=== PATIENT | female | born 1995 | race Caucasian/White ===

== ENCOUNTER → 2021-05-17 10:26 | Outpatient (CLI) | payer OTHER, MEDICAID, SELFPAY ==
[2021-05-17 10:50] LABS: COVID19 -Nasal RAPID Negative (Negative)
== END ==
PROVIDERS: Family Provider Physician Assistant; PCP Registered Nurse Diabetes Educator; Visit Provider Physician Assistant
DX: Z20.822 Contact with and (suspected) exposure to COVID-19 (principal); R05 Cough; R09.89 Other specified symptoms and signs involving the circulatory and respiratory systems
CPT/HCPCS: 87635

== ENCOUNTER 2021-10-28 15:02 | Emergency (ER) | payer OTHER, MEDICAID, SELFPAY ==
[2021-10-28 15:23] VITALS: BP 128/82; PULSE 61; RESP 24; TEMP 36.7; O2SAT 96; BMI 21.9
[2021-10-28 16:17] LABS: INR 1.1 (0.9-1.3); Prothrombin Time 11.7 SECONDS (10.1-12.7)
[2021-10-28 16:19] LABS: PTT Partial Thromboplastin Tim 25 SECONDS (26.4-36.2)
[2021-10-28 16:22] LABS: Alanine Aminotransferase 14 IU/L (<35); Albumin 4.5 g/dL (3.5-5.0); Albumin Globulin Ratio 1.6 (1.0-2.8); Alkaline Phosphatase 44 U/L (38-126); Aspartate Aminotransferase 23 IU/L (14-36); BUN Creatinine Ratio 13.3 (6-22); Bilirubin Total 0.6 mg/dL (0.2-1.3); Blood Urea Nitrogen 8 mg/dL (7-17); Calcium 9.4 mg/dL (8.4-10.2); Carbon Dioxide 24 mmol/L (22-32); Chloride 106 mmol/L (98-107); Estimated Glomerular Filt Rate > 60.0 mL/min (>60); Globulin 2.8 g/dL (1.7-4.1); Glucose 86 mg/dL (70-100); HEMOLYSIS < 15 (0-50); Potassium 3.3 mmol/L (3.4-5.1); Sodium 137 mmol/L (137-145); Total Protein 7.3 g/dL (6.3-8.2)
[2021-10-28 16:23] LABS: Add Manual Diff / Slide Review NO; Basophils Absolute Auto 0 /uL (0-100); Basophils Percent Auto 0.6 % (0-2); Eosinophils Absolute Auto 0 /uL (0-450); Eosinophils Percent Auto 0.4 % (2-4); Hematocrit 39.3 % (36-46); Hemoglobin 13.8 g/dL (12.0-16.0); Lymphocytes Absolute Auto 1600 /uL (1100-4500); Lymphocytes Percent Auto 24.8 % (25-40); Mean Corpuscular HGB Conc 35.2 % (30-36); Mean Corpuscular Volume 93.7 fL (80-100); Monocytes Absolute Auto 300 /uL (0-900); Monocytes Percent Auto 4.8 % (3-14); Neutrophils Absolute Auto 4400 /uL (1500-7000); Neutrophils Percent Auto 69.4 % (50-75); Platelet Count 201 X10^3/uL (150-400); Red Blood Cell Count 4.19 X10^6/uL (4.0-5.2); Red Cell Distribution Width 12.9 % (11.6-14.8); White Blood Cell Count 6.3 X10^3/uL (4.5-11.0)
--- NOTE | 2021-10-28 18:30 | ED.GIBLEED ---
HPI - GI Bleed General Chief complaint: GI Bleed Stated complaint: rectal bleeding Time Seen by Provider: 10/28/21 18:04 Source: patient Mode of arrival: Ambulatory History of Present Illness HPI Narrative: 26-year-old female smoker with history of PTSD, anxiety, depression presents with her significant other and a chief complaint of painless bright red blood per rectum with bowel movements only for the past day or 2. She denies any fever chills. She has no nausea, vomiting or. She denies recent travel, bad food or recent antibiotics. She states that she had recently started Wellbutrin last week but took her last dose on Wednesday. She denies dizziness, weakness or lightheadedness. She has no headache, runny nose or sore throat. She denies any chest pain or shortness of breath. She otherwise feels well. She states that she has loose stool with blood mixed in. She denies any trauma. Related Data Previous Rx's Medication Instructions Recorded drospirenone 3 mg-ethinyl 1 tab PO DAILY #84 tab 05/07/21 estradiol 0.02 mg tablet bupropion HCl 150 mg 24 hr tablet, 150 mg PO QAM #30 tab 10/22/21 extended release (Wellbutrin XL) escitalopram oxalate 20 mg tablet 20 mg PO DAILY #90 tab 10/22/21 (Lexapro) zolpidem 5 mg tablet (Ambien) 5 mg PO BEDTIME PRN #30 tab 10/22/21 pantoprazole 40 mg tablet,delayed 40 mg PO DAILY #30 tab 10/28/21 release (Protonix) Allergies Allergy/AdvReac Type Severity Reaction Status Date / Time Sulfa (Sulfonamide Allergy Intermediate hives Verified 05/17/21 10:28 Antibiotics) Penicillins [PENICILLINS] Allergy Mild RASH, Verified 05/17/21 10:28 DYSPNEA amoxicillin [AMOXICILLIN] Allergy Unknown Verified 05/17/21 10:28 Review of Systems Review of Systems Narrative: GENERAL: Denies chills, fatigue, malaise, fever, sweats. HEENT: Denies sinus pain, ear pain, sore throat, difficulty swallowing, dizziness. RESPIRATORY: Denies dyspnea, cough, wheezing, hemoptysis, sputum. CARDIOVASCULAR: Denies chest pain, palpitations, orthopnea, edema, GASTROINTESTINAL: See HPI : Denies dysuria, frequency, incontinence, hematuria, urinary retention. MUSCULOSKELETAL: denies weakness, joint pain, or bony pain SKIN: Denies rash, skin lesions, or other NEUROLOGIC: Denies weakness, headache, numbness, change in speech, confusion, seizures, incoordination. PSYCHIATRIC: No concerning psychosocial issues. 12 point review of systems is negative except for those stated above Patient History Medical History Anxiety Depression Insect bite of right toe Insomnia Open wound of toe of right foot due to animal bite PTSD (post-traumatic stress disorder) Surgical History Status post delivery Social History Smoking Status: Current every day smoker Smoking Status: Current every day smoker tobacco type: vaping alcohol intake frequency: a few times a week Alcohol type: hard liquor and other Substance Use Type: marijuana Exam Narrative Exam Narrative: GENERAL: [26] year old patient appears stated age. Well-developed patient, in mild distress. HEAD: Atraumatic. Normocephalic. EYES: Pupils equal round and reactive. Extraocular motions intact. No scleral icterus. No injection or drainage. ENT: Nose without bleeding, purulent drainage. Throat without erythema, tonsillar hypertrophy or exudate. Airway patent. NECK: Trachea midline. Non tender CARDIOVASCULAR: Regular rate and rhythm without murmurs, gallops, or rubs. RESPIRATORY: Clear to auscultation. Breath sounds equal bilaterally. No wheezes, rales, or rhonchi. GASTROINTESTINAL: Abdomen soft, non-tender, nondistended. RECTAL: Weakly heme-positive. No hemorrhoid, fissure or pain. Performed with patient permission and female nursing utility tender carding at the bedside. EXTREMITIES: No edema or joint tenderness. BACK: Nontender without deformity or crepitance. No flank tenderness. NEURO: AOx3. SKIN: No rash or erythema of visible areas Initial Vital Signs Initial Vital Signs: Vital Signs Temperature 98.1 F 10/28/21 15:23 Pulse Rate 61 10/28/21 15:23 Respiratory Rate 24 10/28/21 15:23 Blood Pressure 128/82 10/28/21 15:23 Pulse Oximetry 96 10/28/21 15:23 Course Orders Ordered: ED Orders 10/28/21 15:40 Complete Blood Count AUTO DIFF Stat Comprehensive Metabolic Panel Stat Partial Thromboplastin Time Stat Prothrombin Time INR Stat Type and Screen Stat 10/28/21 16:05 EKG-12 Lead Stat Vital Signs Vital signs: Vital Signs - 8 hr 10/28/21 15:23 Temperature 98.1 F Pulse Rate 61 Respiratory Rate 24 Blood Pressure 128/82 Pulse Oximetry 96 MDM - GI Bleed Lab Data Result diagrams: 10/28/21 15:40 10/28/21 15:40 Labs: Lab Results 10/28/21 10/28/21 10/28/21 Range/Units 15:40 15:40 15:40 WBC 6.3 (4.5-11.0) X10^3/uL RBC 4.19 (4.0-5.2) X10^6/uL Hgb 13.8 (12.0-16.0) g/dL Hct 39.3 (36-46) % MCV 93.7 (80-100) fL MCH 33.0 (26-34) PG MCHC 35.2 (30-36) % RDW 12.9 (11.6-14.8) % Plt Count 201 (150-400) X10^3/uL Neut % (Auto) 69.4 (50-75) % Lymph % (Auto) 24.8 L (25-40) % [place] % (Auto) 4.8 (3-14) % Eos % (Auto) 0.4 L (2-4) % Baso % (Auto) 0.6 (0-2) % Neut # (Auto) 4400 (0998-8156) /uL Lymph # (Auto) 1600 (6412-4397) /uL [place] # (Auto) 300 (0-900) /uL Eos # (Auto) 0 (0-450) /uL Baso # (Auto) 0 (0-100) /uL PT 11.7 (10.1-12.7) SECONDS INR 1.1 (0.9-1.3) APTT 25 L (26.4-36.2) SECONDS Sodium 137 (137-145) mmol/L Potassium 3.3 L (3.4-5.1) mmol/L Chloride 106 (98-107) mmol/L Carbon Dioxide 24 (22-32) mmol/L BUN 8 (7-17) mg/dL Creatinine 0.60 (0.52-1.04) mg/dL Estimated GFR > 60.0 (>60) mL/min BUN/Creatinine Ratio 13.3 (6-22) Glucose 86 (70-100) mg/dL Calcium 9.4 (8.4-10.2) mg/dL Total Bilirubin 0.6 (0.2-1.3) mg/dL AST 23 (14-36) IU/L ALT 14 (<35) IU/L Alkaline Phosphatase 44 (38-126) U/L Total Protein 7.3 (6.3-8.2) g/dL Albumin 4.5 (3.5-5.0) g/dL Globulin 2.8 (1.7-4.1) g/dL Albumin/Globulin Ratio 1.6 (1.0-2.8) Blood Type Antibody Screen 10/28/21 Range/Units 15:40 WBC (4.5-11.0) X10^3/uL RBC (4.0-5.2) X10^6/uL Hgb (12.0-16.0) g/dL Hct (36-46) % MCV (80-100) fL MCH (26-34) PG MCHC (30-36) % RDW (11.6-14.8) % Plt Count (150-400) X10^3/uL Neut % (Auto) (50-75) % Lymph % (Auto) (25-40) % [place] % (Auto) (3-14) % Eos % (Auto) (2-4) % Baso % (Auto) (0-2) % Neut # (Auto) (7452-0887) /uL Lymph # (Auto) (2531-3643) /uL [place] # (Auto) (0-900) /uL Eos # (Auto) (0-450) /uL Baso # (Auto) (0-100) /uL PT (10.1-12.7) SECONDS INR (0.9-1.3) APTT (26.4-36.2) SECONDS Sodium (137-145) mmol/L Potassium (3.4-5.1) mmol/L Chloride (98-107) mmol/L Carbon Dioxide (22-32) mmol/L BUN (7-17) mg/dL Creatinine (0.52-1.04) mg/dL Estimated GFR (>60) mL/min BUN/Creatinine Ratio (6-22) Glucose (70-100) mg/dL Calcium (8.4-10.2) mg/dL Total Bilirubin (0.2-1.3) mg/dL AST (14-36) IU/L ALT (<35) IU/L Alkaline Phosphatase (38-126) U/L Total Protein (6.3-8.2) g/dL Albumin (3.5-5.0) g/dL Globulin (1.7-4.1) g/dL Albumin/Globulin Ratio (1.0-2.8) Blood Type B Positive Antibody Screen Negative MDM Narrative Medical decision making narrative: 26-year-old female largely at her normal baseline with 2 days or so of painless BRBPR. Low risk with reassuring exam and vitals. Labs unremarkable. She has had no fever, recent antibiotics, bad food or travel. She takes no blood thinners. She has very minimal bleeding on exam. Perhaps the sources an internal hemorrhoid or diverticular bleed. Extensive discussion about the importance of close follow-up, clear liquid diet, return precautions. Questions answered to her apparent satisfaction Discharge Plan Departure Patient Disposition: Home Clinical Impression: Bright red rectal bleeding Instructions: Gastrointestinal Bleeding Activity Restrictions/Additional Instructions: *You have been diagnosed with [rectal bleeding. As we discussed your history and physical exam are very reassuring as are your vital signs and lab work. *What to do: *Please continue to take your regular medications as directed. [x ] New medication prescriptions sent to your pharmacy: [[facility] ] [ ] New medication written as a paper prescription [ ] No new medications given *Please follow up with your primary care provider in 2-3 days, call for an appointment. Let them know you were seen in the Emergency Department and that we ask that you be seen in follow up. We will electronically transmit a record of today's note if your PCP is in our system *Please consider a clear liquid diet for the next 24-48 hours *If you do not have a primary care provider please contact the [facility] Resource line at [phone]. They will ask some questions about your medical history and help get you set up with a doctor in the community. *Return to Emergency Department if you should have any new, worsening or concerning symptoms, such as [fever greater than 101 F, shaking chills, worsening pain, persistent vomiting or other bothersome symptoms] Prescriptions: New pantoprazole [Protonix] 40 mg tablet,delayed release (DR/EC) 40 mg PO DAILY Qty: 30 0RF No Action drospirenone-ethinyl estradiol 3-0.02 mg tablet 1 tab PO DAILY Qty: 84 3RF escitalopram oxalate [Lexapro] 20 mg tablet 20 mg PO DAILY Qty: 90 1RF bupropion HCl [Wellbutrin XL] 150 mg tablet extended release 24 hr 150 mg PO QAM Qty: 30 1RF zolpidem [Ambien] 5 mg tablet 5 mg PO BEDTIME PRN (Reason: insomnia) Qty: 30 2RF Referrals: Rufus Romero ARNP [Primary Care Provider] - Mohinder Amos MD [Physician] -
--- NOTE | 2021-10-28 18:47 | PC.NURSE ---
claudia done by dr davey. pt verbalized understanding and consent.
== END 2021-10-28 19:19 | disposition home or self-care (01) ==
PROVIDERS: Emergency Medicine; Emergency Provider Emergency Medicine; Family Provider Physician Assistant; PCP Registered Nurse Diabetes Educator
DX: K62.5 Hemorrhage of anus and rectum (principal)
CPT/HCPCS: 36415; 80053; 82272; 85025; 85610; 85730; 86850; 86900; 86901; 93005; 99283

== ENCOUNTER → 2022-11-18 10:31 | Outpatient (CLI) | payer OTHER, MEDICAID, SELFPAY ==
[2022-11-18 10:59] LABS: Pregnancy Test Urine Negative (Negative)
[2022-11-18 11:27] LABS: Add Manual Diff / Slide Review NO; Basophils Absolute Auto 0 /uL (0-100); Basophils Percent Auto 0.6 % (0-2); Eosinophils Absolute Auto 100 /uL (0-450); Eosinophils Percent Auto 0.9 % (2-4); Hematocrit 39.9 % (36-46); Hemoglobin 14.4 g/dL (12.0-16.0); Lymphocytes Absolute Auto 1300 /uL (1100-4500); Lymphocytes Percent Auto 20.8 % (25-40); Mean Corpuscular HGB Conc 36.1 % (30-36); Mean Corpuscular Hemoglobin 33.8 PG (26-34); Mean Corpuscular Volume 93.7 fL (80-100); Monocytes Absolute Auto 300 /uL (0-900); Monocytes Percent Auto 5.1 % (3-14); Neutrophils Absolute Auto 4600 /uL (1500-7000); Neutrophils Percent Auto 72.6 % (50-75); Platelet Count 204 X10^3/uL (150-400); Red Blood Cell Count 4.25 X10^6/uL (4.0-5.2); Red Cell Distribution Width 13.3 % (11.6-14.8); White Blood Cell Count 6.4 X10^3/uL (4.5-11.0)
[2022-11-18 12:19] LABS: Alanine Aminotransferase 17 IU/L (<35); Albumin 4.1 g/dL (3.5-5.0); Albumin Globulin Ratio 1.5 (1.0-2.8); Alkaline Phosphatase 59 U/L (38-126); Aspartate Aminotransferase 21 IU/L (14-36); BUN Creatinine Ratio 10.3 (6-22); Bilirubin Total 0.7 mg/dL (0.2-1.3); Blood Urea Nitrogen 6 mg/dL (7-17); Calcium 8.7 mg/dL (8.4-10.2); Carbon Dioxide 29 mmol/L (22-32); Chloride 103 mmol/L (98-107); Estimated Glomerular Filt Rate > 60 mL/min (>60); Globulin 2.7 g/dL (1.7-4.1); Glucose 92 mg/dL (70-100); HEMOLYSIS < 15 (0-50); Potassium 3.7 mmol/L (3.4-5.1); Sodium 138 mmol/L (137-145); Total Protein 6.8 g/dL (6.3-8.2)
[2022-11-18 12:47] LABS: Lithium < 0.2 mmol/L (0.6-1.2)
[2022-11-18 12:51] LABS: Free T4, Direct Thyroxine 0.89 ng/dL (0.78-2.19)
[2022-11-18 13:05] LABS: Thyroid Stimulating Hormone 1.15 uIU/mL (0.47-4.68)
== END ==
PROVIDERS: Family Provider Physician Assistant; PCP Registered Nurse Diabetes Educator; Referring Provider Psychiatry & Neurology Psychiatry; Visit Provider Psychiatry & Neurology Psychiatry
DX: F31.9 Bipolar disorder, unspecified (principal); Z79.899 Other long term (current) drug therapy
CPT/HCPCS: 36415; 80053; 80178; 81025; 84439; 84443; 85025; 90792

== ENCOUNTER → 2022-11-24 10:54 | Outpatient (CLI) | payer OTHER, MEDICAID, SELFPAY ==
[2022-11-24 12:40] LABS: Lithium 0.2 mmol/L (0.6-1.2)
== END ==
PROVIDERS: Family Provider Physician Assistant; PCP Registered Nurse Diabetes Educator; Referring Provider Psychiatry & Neurology Psychiatry; Visit Provider Psychiatry & Neurology Psychiatry
DX: F31.9 Bipolar disorder, unspecified (principal); Z51.81 Encounter for therapeutic drug level monitoring
CPT/HCPCS: 36415; 80178

== ENCOUNTER 2024-02-26 10:10 | Emergency (ER) | payer OTHER, MEDICAID, SELFPAY ==
[2024-02-26 10:15] VITALS: BP 110/69; PULSE 87; RESP 14; TEMP 36.6; O2SAT 97; BMI 21.1
--- NOTE | 2024-02-26 10:18 | DI.RAD.S_ITS ---
PROCEDURE: XR ANKLE LT MIN 3V INDICATIONS: foot/ankle pain TECHNIQUE: 3 views of the ankle were acquired. COMPARISON: [facility], CR, XR FOOT LT MIN 3V, 02/26/2024, 10:16. [facility], CR, ANKLE 3 VIEWS LEFT, 03/13/2013, 20:12. FINDINGS: Bones: No fractures or dislocations. Ankle mortise is normally aligned. No suspicious bony lesions. Soft tissues: No tibiotalar joint effusion. Achilles tendon appears normal. IMPRESSION: No visualized acute fracture or dislocation. However, if clinical concern and/or pain persist, short interval imaging followup in 7-10 days is recommended, as occult injury cannot be definitively excluded. Dictated by: La Aguilar M.D. on 02/26/2024 at 10:55 Approved by: La Aguilar M.D. on 02/26/2024 at 10:56
--- NOTE | 2024-02-26 10:18 | DI.RAD.S_ITS ---
PROCEDURE: XR FOOT LT MIN 3V INDICATIONS: foot/ankle pain TECHNIQUE: 3 views of the foot were acquired. COMPARISON: [facility], , XR ANKLE LT MIN 3V, 02/26/2024, 10:16. FINDINGS: Bones: No fractures or dislocations. No suspicious bony lesions. Soft tissues: No tibiotalar joint effusion. Achilles tendon appears normal. IMPRESSION: No visualized acute fracture or dislocation. However, if clinical concern and/or pain persist, short interval imaging followup in 7-10 days is recommended, as occult injury cannot be definitively excluded. Dictated by: La Aguilar M.D. on 02/26/2024 at 11:13 Approved by: La Aguilar M.D. on 02/26/2024 at 11:13
--- NOTE | 2024-02-26 11:45 | ED_ITS ---
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 She reports a throbbing sensation to her left ankle. Denies any acute trauma to the left ankle. Denies any swelling, numbness, or any other concerning signs or symp toms. Related Data Allergies Allergy/AdvReac Type Severity Reaction Status Date / Time Sulfa (Sulfonamide Allergy Intermediate hives Verified 02/26/24 10:16 Antibiotics) Penicillins [PENICILLINS] Allergy Mild RASH, Verified 02/26/24 10:16 DYSPNEA amoxicillin [AMOXICILLIN] Allergy Unknown Verified 02/26/24 10:16 Review of Systems <Noel Barajas PA-C - Last Filed: 02/26/24 12:23> Review of Systems Narrative: GENERAL: Denies chills, fatigue, malaise, fever, sweats. HEENT: Denies sinus pain, ear pain, sore throat, difficulty swallowing, dizziness. RESPIRATORY: Denies dyspnea, cough, wheezing, hemoptysis, sputum. CARDIOVASCULAR: Denies chest pain, palpitations, orthopnea, edema, GASTROINTESTINAL: Denies nausea, vomiting, abdominal pain, diarrhea, constipation, melena. : Denies dysuria, frequency, incontinence, hematuria, urinary retention. MUSCULOSKELETAL: Reports left ankle pain, otherwise denies weakness, joint pain, or bony pain SKIN: Denies rash, skin lesions, or other NEUROLOGIC: Denies weakness, headache, numbness, change in speech, confusion, seizures, incoordination. PSYCHIATRIC: No concerning psychosocial issues. 12 point review of systems is negative except for those stated above Patient History <Noel Barajas PA-C - Last Filed: 02/26/24 12:23> Medical History Anxiety Depression Insect bite of right toe Insomnia Open wound of toe of right foot due to animal bite PTSD (post-traumatic stress disorder) Surgical History Status post delivery Social History Smoking Status: Current every day smoker Smoking Status: Current every day smoker tobacco type: vaping alcohol intake frequency: 0-2 drinks per day Alcohol type: hard liquor and other Substance Use Type: marijuana Exam <Noel Barajas PA-C - Last Filed: 02/26/24 12:23> Narrative Exam Narrative: GENERAL: Well-developed patient, in mild distress. HEAD: Atraumatic. Normocephalic. EYES: Pupils equal round and reactive. Extraocular motions intact. No scleral icterus. No injection or drainage. ENT: Nose without bleeding, purulent drainage. Throat without erythema, tonsillar hypertrophy or exudate. Airway patent. NECK: Trachea midline. Non tender EXTREMITIES: Some tenderness to palpation to the calcaneus of the left foot, neurovascularly intact throughout, no significant edema NEURO: AOx3. SKIN: No rash or erythema of visible areas Initial Vital Signs Initial Vital Signs: Vital Signs Temperature 97.8 F 02/26/24 10:15 Pulse Rate 87 02/26/24 10:15 Respiratory Rate 14 02/26/24 10:15 Blood Pressure 110/69 02/26/24 10:15 Pulse Oximetry 97 02/26/24 10:15 Oxygen Delivery Method Room Air 02/26/24 10:15 <Adry Bowers DO - Last Filed: 02/26/24 18:51> Initial Vital Signs Initial Vital Signs: Vital Signs Temperature 97.8 F 02/26/24 10:15 Pulse Rate 87 02/26/24 10:15 Respiratory Rate 14 02/26/24 10:15 Blood Pressure 110/69 02/26/24 10:15 Pulse Oximetry 97 02/26/24 10:15 Oxygen Delivery Method Room Air 02/26/24 10:15 Course <Noel Barajas PA-C - Last Filed: 02/26/24 12:23> Orders Ordered: ED Orders 02/26/24 10:18 XR ankle LT min 3V Stat XR foot LT min 3V Stat Vital Signs Vital signs: Vital Signs - 8 hr 02/26/24 12:33 Pulse Rate 50 L Respiratory Rate 18 Blood Pressure 102/59 L Pulse Oximetry 99 Oxygen Delivery Method Room Air <Adry Bowers DO - Last Filed: 02/26/24 18:51> Orders Ordered: ED Orders 02/26/24 10:18 XR ankle LT min 3V Stat XR foot LT min 3V Stat Vital Signs Vital signs: Vital Signs - 8 hr 02/26/24 12:33 Pulse Rate 50 L Respiratory Rate 18 Blood Pressure 102/59 L Pulse Oximetry 99 Oxygen Delivery Method Room Air MDM - Extremity Injury (Lower) <Noel Barajas PA-C - Last Filed: 02/26/24 12:23> Imaging Data Foot XR : Radiologist's Impression: [address] [address] XRay Report Signed Patient: Leslie Lang MR#: [id number] : 1995 Acct:[id number] Age/Sex: 28 / F Date of Service: 02/26/24 Loc: ED Accession Number: [id number] Procedure: XR foot LT min 3V Ordering Provider: Adry Bowers D.O. PROCEDURE: XR FOOT LT MIN 3V INDICATIONS: foot/ankle pain TECHNIQUE: 3 views of the foot were acquired. COMPARISON: [facility], , XR ANKLE LT MIN 3V, 02/26/2024, 10:16. FINDINGS: Bones: No fractures or dislocations. No suspicious bony lesions. Soft tissues: No tibiotalar joint effusion. Achilles tendon appears normal. IMPRESSION: No visualized acute fracture or dislocation. However, if clinical concern and/or pain persist, short interval imaging followup in 7-10 days is recommended, as occult injury cannot be definitively excluded. Dictated by: La Aguilar M.D. on 02/26/2024 at 11:13 Approved by: La Aguilar M.D. on 02/26/2024 at 11:13 Ankle XR : Radiologist's Impression: [address] [address] XRay Report Signed Patient: Leslie Lang MR#: [id number] : 1995 Acct:[id number] Age/Sex: 28 / F Date of Service: 02/26/24 Loc: ED Accession Number: [id number] Procedure: XR ankle LT min 3V Ordering Provider: Mank,Adry C D.O. PROCEDURE: XR ANKLE LT MIN 3V INDICATIONS: foot/ankle pain TECHNIQUE: 3 views of the ankle were acquired. COMPARISON: [facility], CR, XR FOOT LT MIN 3V, 02/26/2024, 10:16. [facility], CR, ANKLE 3 VIEWS LEFT, 03/13/2013, 20:12. FINDINGS: Bones: No fractures or dislocations. Ankle mortise is normally aligned. No suspicious bony lesions. Soft tissues: No tibiotalar joint effusion. Achilles tendon appears normal. IMPRESSION: No visualized acute fracture or dislocation. However, if clinical concern and/or pain persist, short interval imaging followup in 7-10 days is recommended, as occult injury cannot be definitively excluded. Dictated by: La Aguilar M.D. on 02/26/2024 at 10:55 Approved by: La Aguilar M.D. on 02/26/2024 at 10:56 MDM Narrative Medical decision making narrative: ED course: This is a 28-year-old female presents emergency department due to left ankle pain suspected to be a ankle sprain. X-rays were negative for fractures. No significant edema or calf tenderness to palpation concerning for DVT. Negative Ruiz test. Achilles tendon is taut and patient was able to plantar flex well. Suspect ankle sprain and recommended supportive care. CC: Left ankle pain Complicating co-morbidities: None Data collected from: Previous notes Medical records reviewed: Was seen 2 years ago due to rectal bleeding. History of PTSD, anxiety, depression. Differential considered, but not limited to: DVT, left ankle sprain, fracture, Achilles tendon tear Exam documented above, pertinent findings include: No concerning findings Lab Test results independently reviewed as above. Pertinent findings: None obtained Imaging studies independently reviewed: X-rays unremarkable Scores Used: None MIPS Elements: None Consultations: None Treatments: None Re-evaluations: None Discussion: Discussed plan with the patient was comfortable with the plan Diagnosis: Left ankle sprain Disposition: see below, along with detailed discharge instructions that have been reviewed with patient as well as indications for ED re-evaluation and additional outpatient follow up Discharge Plan Departure Patient Disposition: Home Clinical Impression: Left ankle sprain Activity Restrictions/Additional Instructions: Thank you for coming to the [facility] Emergency Department today. As we discussed your ankle x-rays were negative for any bony abnormalities. I have low concern that this is any kind of blood clot or Achilles tendon injury. Please treat this as you would an ankle sprain with rest, ice, elevation, ibuprofen. Please return to the emergency department if you develop any significant swelling and redness, significant pain or lack of sensation in your foot, or any other concerning signs or symptoms. I hope you feel better soon. Please follow up with your primary care provider within a week if your symptoms continue. If you do not have a primary care provider please contact the [facility] Resource line at [phone]. They will ask some questions about your medical history and help you get set up with a provider in the community. Referrals: Rufus Romero ARNP [Primary Care Provider] - Stand Alone Forms: Patient Portal/API ED Sign-out <Adry Bowers DO - Last Filed: 02/26/24 18:51> Cosign ED Attending Sivakumar Attestation: I was immediately available in the department for consultation.
[2024-02-26 12:33] VITALS: BP 102/59; PULSE 50; RESP 18; O2SAT 99
== END 2024-02-26 12:33 | disposition home or self-care (01) ==
PROVIDERS: Emergency Provider Physician Assistant Medical; Family Provider Physician Assistant; PCP Registered Nurse Diabetes Educator
DX: S93.402A Sprain of unspecified ligament of left ankle, initial encounter (principal); X50.9XXA Other and unspecified overexertion or strenuous movements or postures, initial encounter; Y93.H2 Activity, gardening and landscaping
CPT/HCPCS: 73610; 73630; 99281; 99282

== ENCOUNTER 2024-03-11 11:31 | Emergency (ER) | payer OTHER, MEDICAID, SELFPAY ==
[2024-03-11 11:41] VITALS: BP 128/70; O2SAT 97
[2024-03-11 11:49] VITALS: BP 128/70; PULSE 78; PULSE 99; RESP 20; TEMP 36.9; O2SAT 98; BMI 21.7
--- NOTE | 2024-03-11 11:59 | ED.EXTPRO ---
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 She is nonweightbearing. Is wearing a soft ankle brace. She was being followed by Podiatry. She was here for evaluation of no new injuries just increasing pain in the left ankle. She was prescribed lidocaine patches but she states they are not working. She was told by the coal briquette machine operator office that she needs to come to the emergency department for pain control. Related Data Previous Rx's Medication Instructions Recorded naproxen 500 mg tablet 500 mg PO BID #20 tabs 03/01/24 hydrocodone 5 mg-acetaminophen 325 1 tab PO Q8H PRN pain #10 tabs 03/11/24 mg tablet Allergies Allergy/AdvReac Type Severity Reaction Status Date / Time Sulfa (Sulfonamide Allergy Intermediate hives Verified 03/11/24 11:57 Antibiotics) Penicillins [PENICILLINS] Allergy Mild RASH, Verified 03/11/24 11:57 DYSPNEA amoxicillin [AMOXICILLIN] Allergy Unknown Verified 03/11/24 11:57 Review of Systems Musculoskeletal Musculoskeletal: Reports system reviewed and no additional complaints, except as documented Patient History Medical History Insomnia Open wound of toe of right foot due to animal bite Insect bite of right toe Anxiety Depression PTSD (post-traumatic stress disorder) Surgical History Status post delivery Social History Smoking Status: Current every day smoker alcohol intake: current Smoking Status: Current every day smoker tobacco type: vaping alcohol intake frequency: 0-2 drinks per day Alcohol type: hard liquor and other Substance Use Type: marijuana Exam Initial Vital Signs Initial Vital Signs: Vital Signs Blood Pressure 128/70 03/11/24 11:41 Pulse Oximetry 97 03/11/24 11:41 Cardio Pulses: dorsalis pedis present on the left Skin General: no rashes or lesions noted Extrem Other: No gross deformities Course Orders Ordered: Discontinued Medications Hydrocodone Bitart/Acetaminophen (Hydrocodone/Acet 5/325 Tablet) 1 tab PO NOW ONE Stop: 03/11/24 12:00 Last Admin: 03/11/24 12:09 Dose: 1 tab Vital Signs Vital signs: Vital Signs - 8 hr 03/11/24 11:41 03/11/24 11:41 03/11/24 11:49 Temperature 98.4 F Pulse Rate 99 H Pulse Rate [Left Dorsalis Pedis] Respiratory Rate 20 Blood Pressure 128/70 128/70 Pulse Oximetry 97 98 Oxygen Delivery Method Room Air 03/11/24 11:49 03/11/24 12:00 03/11/24 12:00 Temperature Pulse Rate 85 Pulse Rate [Left Dorsalis Pedis] 78 Respiratory Rate Blood Pressure 116/69 Pulse Oximetry 97 Oxygen Delivery Method MDM - Extremity (Nontraumatic) MDM Narrative Medical decision making narrative: Will hold on any repeat imaging for now has been know that the patient does have a peroneal tendon injury. She was given a dose of pain medicine here in the ER and a prescription for small amount was sent to the pharmacy of her choice however she was told that she needed to talk with her coal briquette machine operator for further pain control if needed. Discharge Plan Departure Patient Disposition: Home Clinical Impression: Ankle pain, left Instructions: DI for Ankle Pain Activity Restrictions/Additional Instructions: Continue to follow all of the instructions given to you by the coal briquette machine operator. You are going to need to talk with the coal briquette machine operator for more long-term pain medication if needed. Return to the emergency department for new symptoms. Prescriptions: New hydrocodone-acetaminophen 5-325 mg tablet 1 tab PO Q8H PRN (Reason: pain) Qty: 10 0RF No Action naproxen 500 mg tablet 500 mg PO BID Qty: 20 1RF Rx Instructions: Take one tablet twice daily for 10 days Referrals: Rufus Romero ARNP [Primary Care Provider] - Stand Alone Forms: Patient Portal/API
[2024-03-11 12:00] VITALS: BP 116/69; PULSE 85; O2SAT 97
[2024-03-11] MEDS: HYDROCODONE/ACET 5/325 TABLET 1 TAB PO (12:09)
== END 2024-03-11 12:15 | disposition home or self-care (01) ==
PROVIDERS: Emergency Provider Emergency Medicine; Family Provider Physician Assistant; PCP Registered Nurse Diabetes Educator
DX: S96.8 Injury of other specified muscles and tendons at ankle and foot level (principal); X58.XXXA Exposure to other specified factors, initial encounter
CPT/HCPCS: 99283

== ENCOUNTER 2024-03-21 22:41 | Emergency (ER) | payer OTHER, MEDICAID, SELFPAY ==
[2024-03-21 22:43] VITALS: BP 111/56; PULSE 98; RESP 18; TEMP 36.6; O2SAT 98; BMI 21.7
--- NOTE | 2024-03-22 01:43 | ED_ITS ---
HPI - Extremity Injury (Lower) General Chief Complaint: Extremity Injury, Lower Stated Complaint: torn tendon lt foot/ankle Time Seen by Provider: 03/22/24 01:20 Source: patient Mode of arrival: Ambulatory History of Present Illness HPI Narrative: 28yoF presents for L foot/ankle pain. Patient had ankle injury 1 month ago, states that Podiatry has MRI stating she has left peroneal tendon rupture. Wears a soft ankle brace and use his crutches. She states that she has had swelling and increasing pain in her left foot and ankle. Patient is very loudly wailing and crying. Taking Tylenol and ibuprofen for pain. States that she has an appointment tomorrow morning with her primary doctor to see if she can be seen by interventional pain. States that she was told by podiatry and PCP that if pain was severe she should come to the ED for evaluation. Of note, patient sitting comfortably in ED wheelchair on arrival. Loud crying began several hours after arrival in the waiting room. Related Data Previous Rx's Medication Instructions Recorded naproxen 500 mg tablet 500 mg PO BID #20 tabs 03/01/24 hydrocodone 5 mg-acetaminophen 325 1 tab PO Q8H PRN pain #10 tabs 03/11/24 mg tablet gabapentin 300 mg capsule 300 mg PO TID #30 caps 03/22/24 Allergies Allergy/AdvReac Type Severity Reaction Status Date / Time Sulfa (Sulfonamide Allergy Intermediate hives Verified 03/11/24 11:57 Antibiotics) Penicillins [PENICILLINS] Allergy Mild RASH, Verified 03/11/24 11:57 DYSPNEA amoxicillin [AMOXICILLIN] Allergy Unknown Verified 03/11/24 11:57 Patient History Medical History Insomnia Open wound of toe of right foot due to animal bite Insect bite of right toe Anxiety Depression PTSD (post-traumatic stress disorder) Surgical History Status post delivery Social History Smoking Status: Current every day smoker alcohol intake: current Smoking Status: Current every day smoker tobacco type: vaping alcohol intake frequency: 0-2 drinks per day Alcohol type: hard liquor and other Substance Use Type: marijuana Exam Initial Vital Signs Initial Vital Signs: Vital Signs Temperature 98 F 03/21/24 22:43 Pulse Rate 98 H 03/21/24 22:43 Respiratory Rate 18 03/21/24 22:43 Blood Pressure 111/56 L 03/21/24 22:43 Pulse Oximetry 98 03/21/24 22:43 Oxygen Delivery Method Room Air 03/21/24 22:43 Const: Awake, alert, loudly crying/moaning MSK: palpable pulses, intact sensation, compartments soft, no reproducible tenderness to palpation. Minimal swelling dorsum R foot Skin: Warm, Dry, intact, no rashes Neuro: AO x3, CN II-XII grossly intact, moves all extremities Course Orders Ordered: Discontinued Medications Droperidol (Droperidol 5 Mg/2 Ml Vial) 2.5 mg IV NOW ONE Stop: 03/22/24 01:43 Last Admin: 03/22/24 01:55 Dose: 2.5 mg Acetaminophen (Ofirmev) 1,000 mg in 100 mls @ 400 mls/hr IV NOW ONE Stop: 03/22/24 01:56 Last Admin: 03/22/24 01:52 Dose: 400 mls/hr Ketorolac Tromethamine (Ketorolac 30 Mg/Ml Vial) 15 mg IV NOW ONE Stop: 03/22/24 01:43 Last Admin: 03/22/24 01:53 Dose: 15 mg Vital Signs Vital signs: Vital Signs - 8 hr 03/21/24 22:43 Temperature 98 F Pulse Rate 98 H Respiratory Rate 18 Blood Pressure 111/56 L Pulse Oximetry 98 Oxygen Delivery Method Room Air MDM - Extremity Injury (Lower) MDM Narrative Medical decision making narrative: Patient presenting for persistent left ankle pain since injury approximately 4 weeks ago. Patient states that she has had several MRIs, ultrasounds, and x- rays for this complaint and no cause for her persistent pain has been found outside of her known peroneal tear. Patient has palpable pulses, compartments are soft, she is able to move her leg and ankle. She has trace nonpitting edema of her foot that patient states has been there for some time. She has an appointment with her primary doctor tomorrow to see if she can be referred to interventional pain management for her intractable left ankle pain. Seen 03/11 and prescribed narcotics. At this time based on known injury, duration of symptoms, and overall benign exam no indication for additional imaging or narcotics. Discharge Plan Departure Patient Disposition: Home Clinical Impression: Lower extremity pain, left Instructions: DI for Leg Pain Activity Restrictions/Additional Instructions: Follow up with your primary doctor as scheduled. The gabapentin may help with nerve pain. Continue to take Tylenol and ibuprofen as needed for pain. Elevate your limb above heart level to decrease swelling. Continue to wear the brace as needed. Prescriptions: New gabapentin 300 mg capsule 300 mg PO TID Qty: 30 0RF No Action naproxen 500 mg tablet 500 mg PO BID Qty: 20 1RF Rx Instructions: Take one tablet twice daily for 10 days hydrocodone-acetaminophen 5-325 mg tablet 1 tab PO Q8H PRN (Reason: pain) Qty: 10 0RF Referrals: Rufus Romero ARNP [Primary Care Provider] - Stand Alone Forms: Patient Portal/API
[2024-03-22 01:50] VITALS: BP 114/67; PULSE 70; O2SAT 100
[2024-03-22] MEDS: ACETAMINOPHEN IV 1,000 MG/100 ML VIAL 400 MG IV (01:52)
[2024-03-22] MEDS: KETOROLAC 30 MG/ML VIAL 15 MG IV (01:53)
[2024-03-22] MEDS: DROPERIDOL 5 MG/2 ML VIAL 2.5 MG IV (01:55)
[2024-03-22 02:00] VITALS: BP 114/74; PULSE 67; O2SAT 99
[2024-03-22 02:30] VITALS: BP 116/68; PULSE 72; O2SAT 98
[2024-03-22 02:36] VITALS: BP 102/59; PULSE 78; O2SAT 99
== END 2024-03-22 02:50 | disposition home or self-care (01) ==
PROVIDERS: Emergency Provider Emergency Medicine; Family Provider Physician Assistant; PCP Registered Nurse Diabetes Educator
DX: M79.605 Pain in left leg (principal)
CPT/HCPCS: 36415; 96374; 96375; 99284; J0136; J1790; J1885

== ENCOUNTER 2024-06-05 11:48 | Day surgery (SDC) | payer OTHER, MEDICAID, SELFPAY ==
[2024-05-31 08:26] VITALS: BMI 20.8
--- NOTE | 2024-06-05 12:06 | SUR.OPER ---
Lithotomy on padded OR bed, head on pillow, arms secured on padded arm boards at <90 degrees abduction. Legs secured in padded yellow fins stirrups.
[2024-06-05 12:09] VITALS: BMI 20.3
[2024-06-05 12:20] VITALS: BP 117/73; PULSE 76; RESP 12; TEMP 36.5; O2SAT 97
[2024-06-05] MEDS: LACTATED RINGERS 1,000 ML 21 ML IV (12:33)
--- NOTE | 2024-06-05 12:44 | PM.PREOP ---
Pre-operative Note Interval Note History & Physical reviewed/Exam performed by Physician: Yes Changes to H&P: No
[2024-06-05] MEDS: ACETAMINOPHEN 325 MG TABLET 975 MG PO (12:50)
[2024-06-05] MEDS: CLINDAMYCIN 900 MG/50 ML PIGGYBACK 50 MG IV (13:06)
[2024-06-05] MEDS: BUPIVACAINE 0.5% W/ EPI (PF) 30 ML VIAL INJ (13:23)
--- NOTE | 2024-06-05 13:39 | PM.OP.1 ---
Operative Date/Time/Diagnoses Date of procedure: 06/05/24 Time of procedure: 13:39 Pre-op diagnosis: Labial mass Post-op diagnosis: same Procedure & Clinicians Procedure: Removal of large left labial inclusion cyst with drainage and cauterization of smaller left labial inclusion cyst Same procedure as scheduled: Yes Indications: Large left labial inclusion cyst that is enlarging and painful as well as new onset of smaller mass Surgeon: Irene Wood Click Yes if Unassisted: Yes Anesthesia Type: General Operative Notes Findings: 4 cm left labial inclusion cyst with 1/4 cm left labial inclusion cyst Closure Type: primary Specimen(s): none sent Estimated Blood Loss (mL): 20 Blood products transfused: none Procedure in detail: Patient was brought to the operating room where she underwent general anesthesia was placed in [facility]. She receive clindamycin IV prior to beginning the case. Pulsatile stockings were in place and functional, warming was with blankets. A check system was reviewed with staff in the room prior to beginning the case. The 2 inclusion cysts were injected with lidocaine with epinephrine. The smaller inclusion cyst was entered with the scalpel and the base cauterized. An incision was made over the larger cyst with removal of a large amount of white cheesy material. Dissection was undertaken bluntly in with scissors to remove the entire cyst wall. The defect was closed 2 layers of 2-0 Vicryl sutures interrupted. Bleeding appeared to be in control. The skin was closed with a subcuticular stitch of 4-0 Monocryl. Counts of instruments sponges were correct. Patient went to recovery room in good condition. Complications: none Post-operative Condition: stable Disposition: same day surgery Plan for aftercare: Home when awake and stable
[2024-06-05 13:46] VITALS: BP 99/47; PULSE 46; RESP 14; TEMP 36.1; O2SAT 100
[2024-06-05 13:53] VITALS: BP 112/71; PULSE 96; RESP 24; O2SAT 100
[2024-06-05 13:57] VITALS: BP 123/79; PULSE 82; RESP 18; O2SAT 100
[2024-06-05 14:02] VITALS: BP 122/69; PULSE 74; RESP 20; TEMP 37; O2SAT 100
[2024-06-05 14:09] VITALS: BP 112/56; PULSE 54; RESP 18; TEMP 37; O2SAT 100
== END 2024-06-05 14:46 | disposition home or self-care (01) ==
PROVIDERS: Family Provider Physician Assistant; PCP Registered Nurse Diabetes Educator; Referring Provider Specialist; Visit Provider Specialist
PROC: (CPT 56501; principal; 2024-06-05 13:30)
DX: D28.0 Benign neoplasm of vulva (principal); N90.89 Other specified noninflammatory disorders of vulva and perineum
CPT/HCPCS: 56501; 11424; 12042; J1100; J2250; J2405; J2704; J3010

== ENCOUNTER 2024-11-15 13:00 | Outpatient (RCR) | payer OTHER, MEDICAID, SELFPAY ==
--- NOTE | 2024-06-28 16:56 | PT.OIE ---
Current Diagnoses Causalgia of left lower limb (06/28/24) Peroneal tendinitis, left leg (06/28/24) Difficulty in walking, not elsewhere classified (06/28/24) Past Medical History (Last Reviewed 04/27/24 @ 15:34 by HONG Paige) Anxiety Depression Insect bite of right toe Insomnia Open wound of toe of right foot due to animal bite PTSD (post-traumatic stress disorder) Past Surgical History (Last Reviewed 04/27/24 @ 15:34 by HONG Paige) Status post delivery Visit Care Team Role Provider Type HONG Paige Primary Care Provider Advanced Junior Project Manager Specialty: Medical Address: [address] [place] [address], [id number] Email: [email or web address] Autumn Hackett PA-C Family Provider Non-Staff Specialty: Medical Address: [address] [place] [address], [id number] Email: [email or web address] Betancourt DPM Attending Provider Non-Staff Referring Provider Specialty: Podiatry Address: [facility], [address] [place] [address], [id number] Email: Physical Therapy Initial Evaluation PT-OP-A Visit Information Start: 06/27/24 15:59 Freq: Status: Active Protocol: Document 06/28/24 09:46 SAK (Rec: 06/28/24 10:47 SAK [id number]) Out-Patient Physical Therapy Visit Information Visit Information Visit Type Initial Evaluation Visit Start Time 09:53 Visit Stop Time 10:40 Visit Number 1 Evaluation Information Evaluation Date 06/28/24 Precautions Precautions Don't put weight on left LE per wire splicer March PT-OP-B Current Condition Start: 06/27/24 15:59 Freq: Status: Active Protocol: Document 06/28/24 09:46 SAK (Rec: 06/28/24 10:47 SAK [id number]) Current Condition History of Current Condition Onset Date February 24 2024 Current Complaints left ankle pain and weakness History of Current Condition States on 23 of February she did some chores, layed down for a nap, woke up with left ankle throbbing, discolored, swollen , bruise lateral ankle, has persisted. Doctor's initially thought Narinder's at [facility], was sent to ER. x-ray negative, diagnosed with sprain, sent home. MRI showed mild to moderate tendinosis and intrasubstance partial thickness tear peroneus longus extending from level of lateral melleolus tip to distal insertion 1st metatarsal base. Was on Gabapentin for nerve pain due to symptoms of CRPS Currently no meds except Ambien. Also recent surgery for removal of labial cyst. Wearing lace up ankle brace, socks with comopression at arch. No history of sprain or other injury except left knee ligamentous tear thinks medial collarateral. Now doing leg lifts, leg circles, ankle dorsiflexion and pf, ankle circles hurt. Hasn't tried ice or heat. Hasn't seen wire splicer for 1 1/2 months: PT ordered at that time but initially waited for call from PT clinic, so just starting now. NWB since 23 of February. Only approved previously for ankle df ex by wire splicer. Inc pain with touch, pressure, weight bearing. Using axillary crutches. Water walking was recommended for patient but she is unable to afford. Prior Treatments and Tests no other, no ice or heat. 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 [id number]) OP-PT Subjective Patient Comments Patient Comments Patient frustrated by continued pain and dysfunction left ankle after waking up after nap on February 23 with pain, swelling, and discoloration of her left ankle. No treatment except medication, rest, NWB gait. She purchased a lace up brace which she reports helps with support. No longer taking Gabapentin. Unable to work due to injury. OP-PT Pain Assessment Pain Behaviors Pain Behaviors Facial Grimacing,Guarding, Wincing PT-OP-G Mobility & Gait Start: 06/27/24 15:59 Freq: Status: Active Protocol: Document 06/28/24 09:46 [facility] (Rec: 06/28/24 16:52 [facility] [id number]) OP Gait Assessment Gait Gait Assistance Required: Independent Able to Maintain Weight Bearing Status Yes During Gait Assistive Devices Assistive Device Axillary Crutches Orthotic/Prosthetic Devices or Brace: Yes Factors Limiting Gait Function Factors Limiting Gait Function Pain Comments Gait Comments touch down weight bearing PT-OP-J Posture/Palpation/Skin Start: 06/27/24 15:59 Freq: Status: Active Protocol: Document 06/28/24 09:46 [facility] (Rec: 06/28/24 16:52 [facility] [id number]) Palpation Assessment Location left ankle Palpation Location peronal tendon at lateral malleolus, posterior calf, bottom of michell Palpation Findings Edema,Soft Tissue Tightness, Tenderness PT-OP-K Range of Motion Start: 06/27/24 15:59 Freq: Status: Active Protocol: Document 06/28/24 09:46 [facility] (Rec: 06/28/24 16:52 [facility] [id number]) Ankle and Foot Goniometric Range of Motion Ankle and Foot ROM Limitations Comments see assessment part of note PT-OP-M Strength Start: 06/27/24 15:59 Freq: Status: Active Protocol: Document 06/28/24 09:46 [facility] (Rec: 06/28/24 16:52 [facility] [id number]) Ankle/Foot Strength Ankle and Foot Manual Muscle Testing Left Dorsiflexion (L4) 3- Fair- Plantarflexion (S1) 3+ Fair+ Inversion 3- Fair- Eversion (S1) 3- Fair- Right Dorsiflexion (L4) 5 Normal Plantarflexion (S1) 5 Normal Inversion 5 Normal Eversion (S1) 5 Normal PT-OP-Q Treatments Start: 06/27/24 15:59 Freq: Status: Active Protocol: Document 06/28/24 09:46 [facility] (Rec: 06/28/24 16:52 [facility] [id number]) Manual Therapy Treatment Taping 1 Body Location left peroneus longus Treatment Focus pain reduction Type of Tape Kinesio Tape Skin Inspection intact Comments insertion to origin, paper off tension I strip Self-Care/Home Management Treatment Education Patient Education Home Exercise Program,Pain Management Other Education Ambulate with crutches with touch down weight bearing heel toe gait as tolerated use of ice for pain and edema reduction issued written HEP HO PT-OP-T Assessment and Plan Start: 06/27/24 15:59 Freq: Status: Active Protocol: Document 06/28/24 09:46 [facility] (Rec: 06/28/24 10:47 [facility] [id number]) Physical Therapy Assessment Rehab Potential Rehabilitation Potential Fair Evaluation Complexity Number of Personal Factors/Comorbidities 1-2 Number of Body Systems Impaired 3 Clinical Presentation at Evaluation Evolving Impairments Impairments Edema,Gait,Pain,ROM,Strength Goals Three Impairment muscle wasting left calf 2.7 cm smaller than right Residential Goal (LTG) Normalize muscle tone left calf to within 1 cm of right for improved left LE function LTG Duration 09/28/24 One Impairment lacking full ROM and strength left ankle Short Term Goal (STG) Patient will be instructed in HEP for purposes of left ankle ROM and strength STG Duration 08/11/24 Experienced Truck Driver Goal (LTG) Patient will be independent and compliant with HEP and demonstrate full active ROM of her left ankle and 5/5 muscle strength to allow her to return to prior functional level. LTG Duration 09/28/24 Two Impairment Patient requires the use of crutches for gait and cannot tolerate WBleft LE Short Term Goal (STG) Patient will be able to ambulate with crutches on level surfacewith normal gait pattern without increase in pain STG Duration 08/11/24 Residential Goal (LTG) Patient will be able to ambulate without assistive device on all usual surfaces without an increase in pain LTG Duration 09/28/24 Assessment Summary Assessment Patient presents to PT with c/ o left lateral ankle pump, inability to bear weight or move left foot and ankle since February 23 of this year, reporting she woke up from a nap wo pain, swelling, throbbing, and discoloration of her left ankle. Initially diagnosed as sprain. MRI later revealed left peroneus longus tendinosis and instrasubstance partial thickness tear. Reports she was advised to rest and given NWB instructions. Patient also had symptoms of CRPS and was given Gabapentin and other nerve pain medication. PT ordered April 17 but today is first PT visit. Again it is of unknown cause and she has had nursing home immobilization, use of assistive devices. ROM left ankle df - 16 AROM, 0 PROM, inv 12 AROM, 15 PROM , ev 5 AROM, 10 PROM. Pain has improved with some Gabapentin though still some discoloration and patient reporting pain with weight bearing and any movement beyond dorsiflexion and plantarflexion but reports minimal ability to move left foot and ankle at all; still exhibiting symptoms of CRPS. Patient very tender to palpation along peroneus longus tendon, worst at lateral malleolus and bottom of foot at insertion, reports at times radiates into calf. Strength and ROM impaired left ankle with c/o pain with inversion and eversion. Patient instructed in gentle ROM and strengthening exercises, crutches were adjusted for better fit, KT tape applied . Instructed in use of ice and heat, and gait with heel toe pattern but with only touch down weight bearing. Physical Therapy Plan Frequency and Duration Frequency of Treatment 2x/Week Duration of treatment (weeks) 12 Plan of Care Start Date 06/28/24 Plan of Care End Date 09/28/23 Therapeutic Interventions Therapeutic Interventions Gait Training,Home Exercise Program,Manual Therapy, Neuromuscular Re-education, Patient/Caregiver Education, Self-Care/Home Management,Soft Tissue Mobilization,Taping, Therapeutic Activities, Therapeutic Exercises Modalities Cold Pack/Ice Massage,Electric Stimulation,Hot Packs, Infrared Therapy,Iontophoresis ,Ultrasound Next Visit Focus/Plan Next Note Type Treatment Note Next Visit Plan Review HEP, assess response to KT tape. Consider trial Biodex recumbant elliptical with no resistance and use of UE's. Modalities and manual therapy to promote healing and decrease pain.
--- NOTE | 2024-07-04 16:25 | PT.OTN ---
Current Diagnoses Causalgia of left lower limb (07/04/24) Peroneal tendinitis, left leg (07/04/24) Difficulty in walking, not elsewhere classified (07/04/24) Physical Therapy Treatment Note PT-OP-A Visit Information Start: 06/27/24 15:59 Freq: Status: Active Protocol: Document 07/04/24 10:36 SAK (Rec: 07/04/24 11:32 SAK [id number]) Out-Patient Physical Therapy Visit Information Visit Information Visit Type Treatment Note Visit Start Time 10:45 Visit Stop Time 11:35 Visit Number 2 Evaluation Information Evaluation Date 06/28/24 Precautions Precautions Don't put weight on left LE per chief operator March. PT called chief operator Jun 28, havan't heard back regarding any precautions at this time PT-OP-B Current Condition Start: 06/27/24 15:59 Freq: Status: Active Protocol: Document 07/04/24 10:36 SAK (Rec: 07/04/24 11:32 SAK [id number]) Current Condition History of Current Condition Onset Date February 24 2024 Current Complaints left ankle pain and weakness History of Current Condition States on 23 of February she did some chores, layed down for a nap, woke up with left ankle throbbing, discolored, swollen , bruise lateral ankle, has persisted. Doctor's initially thought Raynad's at walk in clinic, was sent to ER. x-ray negative, diagnosed with sprain, sent home. MRI showed mild to moderate tendinosis and intrasubstance partial thickness tear peroneus longus extending from level of lateral melleolus tip to distal insertion 1st metatarsal base. Was on Gabapentin for nerve pain due to symptoms of CRPS Currently no meds except Ambien. Also recent surgery for removal of labial cyst. Wearing lace up ankle brace, socks with comopression at arch. No history of sprain or other injury except left knee ligamentous tear thinks medial collarateral. Now doing leg lifts, leg circles, ankle dorsiflexion and pf, ankle circles hurt. Hasn't tried ice or heat. Hasn't seen chief operator for 1 1/2 months: PT ordered at that time but initially waited for call from PT clinic, so just starting now. NWB since 23 of February. Only approved previously for ankle df ex by chief operator. Inc pain with touch, pressure, weight bearing. Using axillary crutches. Water walking was recommended for patient but she is unable to afford. Prior Treatments and Tests no other, no ice or heat. right calf 32.9cm left 29.5 PT-OP-C Subjective Start: 06/27/24 15:59 Freq: Status: Active Protocol: Document 07/04/24 10:36 SAK (Rec: 07/04/24 11:32 [facility] [id number]) OP-PT Subjective Patient Comments Patient Comments Some soreness after doing HEP, using ice, continues min weight bearing, using crutches , wearing ankle brace. Unable to do inversion isometric due to pain lateral ankle and calf. Not sure if KT tape helpful. PT-OP-G Mobility & Gait Start: 06/27/24 15:59 Freq: Status: Active Protocol: Document 06/28/24 09:46 [facility] (Rec: 06/28/24 16:52 [facility] [id number]) OP Gait Assessment Gait Gait Assistance Required: Independent Able to Maintain Weight Bearing Status Yes During Gait Assistive Devices Assistive Device Axillary Crutches Orthotic/Prosthetic Devices or Brace: Yes Factors Limiting Gait Function Factors Limiting Gait Function Pain Comments Gait Comments touch down weight bearing PT-OP-J Posture/Palpation/Skin Start: 06/27/24 15:59 Freq: Status: Active Protocol: Document 06/28/24 09:46 SAK (Rec: 06/28/24 16:52 [facility] [id number]) Palpation Assessment Location left ankle Palpation Location peronal tendon at lateral malleolus, posterior calf, bottom of michell Palpation Findings Edema,Soft Tissue Tightness, Tenderness PT-OP-K Range of Motion Start: 06/27/24 15:59 Freq: Status: Active Protocol: Document 06/28/24 09:46 SAK (Rec: 06/28/24 16:52 [facility] [id number]) Ankle and Foot Goniometric Range of Motion Ankle and Foot ROM Limitations Comments see assessment part of note PT-OP-M Strength Start: 06/27/24 15:59 Freq: Status: Active Protocol: Document 06/28/24 09:46 SAK (Rec: 06/28/24 16:52 [facility] [id number]) Ankle/Foot Strength Ankle and Foot Manual Muscle Testing Left Dorsiflexion (L4) 3- Fair- Plantarflexion (S1) 3+ Fair+ Inversion 3- Fair- Eversion (S1) 3- Fair- Right Dorsiflexion (L4) 5 Normal Plantarflexion (S1) 5 Normal Inversion 5 Normal Eversion (S1) 5 Normal PT-OP-Q Treatments Start: 06/27/24 15:59 Freq: Status: Active Protocol: Document 07/04/24 10:36 SAK (Rec: 07/04/24 11:32 SAK [id number]) Cardio Equipment Recumbent Elliptical (Biodex) Duration (Minutes) 6 Resistance 1 Seat Position 9 Other unable to get heel down Therapeutic Exercises Sitting Exercises towel scrunch Equipment Used towel Reps/Minutes 5x ankle ev Sitting Exercise Name jhonny Reps/Minutes 5x5 ankle inv Comments not hernan ankle PF Reps/Minutes 10x ankle df Sitting Exercise Name AROM Reps/Minutes 10x gastroc stretch Equipment Used L2 TB Reps/Minutes 2x30 Comments long sit Standing Exercises weight shift Standing Exercise Name fwd/bck, side, toes/heels (no lift) Reps/Minutes 6 min Comments max 70 lbs Gait Training Gait Activity 2 Device Used axillary cruches, ankle brace Level of Assistance SBA Surface level Distance/Duration 10 ft x 3 Treatment Focus heel/toe gait with min weight bearing Manual Therapy Treatment Consent Patient gave verbal consent for manual Yes treatment Soft Tissue Mobilization left calf Mobilization Type Myofascial Release,Strumming peroneus long Body Location post lateral malleoli Mobilization Type Cross-Friction Intensity/Depth Moderate Body Position Prone Self-Care/Home Management Treatment Education Patient Education Home Exercise Program,Pain Management Other Education updated written HO PT-OP-R Modalities Start: 06/27/24 15:59 Freq: Status: Active Protocol: Document 07/04/24 10:36 SAK (Rec: 07/04/24 11:32 SAK [id number]) Hot Pack/Cold Pack Treatment Cold Pack Location left abkle Patient Position Hooklying Patient Tolerance Good PT-OP-T Assessment and Plan Start: 06/27/24 15:59 Freq: Status: Active Protocol: Document 07/04/24 10:36 SAK (Rec: 07/04/24 11:32 SAK [id number]) Physical Therapy Assessment Goals Three Impairment muscle wasting left calf 2.7 cm smaller than right Nursing Home Goal (LTG) Normalize muscle tone left calf to within 1 cm of right for improved left LE function LTG Duration 09/28/24 One Impairment lacking full ROM and strength left ankle Short Term Goal (STG) Patient will be instructed in HEP for purposes of left ankle ROM and strength STG Duration 08/11/24 Filler Shaker Goal (LTG) Patient will be independent and compliant with HEP and demonstrate full active ROM of her left ankle and 5/5 muscle strength to allow her to return to prior functional level. LTG Duration 09/28/24 Two Impairment Patient requires the use of crutches for gait and cannot tolerate WBleft LE Short Term Goal (STG) Patient will be able to ambulate with crutches on level surfacewith normal gait pattern without increase in pain STG Duration 08/11/24 Filler Shaker Goal (LTG) Patient will be able to ambulate without assistive device on all usual surfaces without an increase in pain LTG Duration 09/28/24 Assessment Summary Assessment Patient tolerated up to 70 lbs with weight shifting with use of scale without c/o pain. Continue to work on gentle progression of gait with heel toe gait using ankle brace and vivian axillary crutches approx 20% weight bearing. Trial cold laser alonger peroneus longus, soft tissue mobilization to tendon posterior to lat malleoli and calf. Ended with ice. Physical Therapy Plan Frequency and Duration Frequency of Treatment 2x/Week Duration of treatment (weeks) 12 Plan of Care Start Date 06/28/24 Plan of Care End Date 09/28/23 Therapeutic Interventions Therapeutic Interventions Gait Training,Home Exercise Program,Manual Therapy, Neuromuscular Re-education, Patient/Caregiver Education, Self-Care/Home Management,Soft Tissue Mobilization,Taping, Therapeutic Activities, Therapeutic Exercises Modalities Cold Pack/Ice Massage,Electric Stimulation,Hot Packs, Infrared Therapy,Iontophoresis ,Ultrasound Next Visit Focus/Plan Next Note Type Treatment Note Next Visit Plan Assess response to last session, continue gentle progression of weight shifting , inc weight bearing with gait as tolerated. Cold laser. Review HEP.
--- NOTE | 2024-07-06 10:33 | PT.OTN ---
Current Diagnoses Causalgia of left lower limb (07/06/24) Peroneal tendinitis, left leg (07/06/24) Difficulty in walking, not elsewhere classified (07/06/24) Physical Therapy Treatment Note PT-OP-A Visit Information Start: 06/27/24 15:59 Freq: Status: Active Protocol: Document 07/06/24 09:47 SP (Rec: 07/06/24 10:42 SP [id number]) Out-Patient Physical Therapy Visit Information Visit Information Visit Type Treatment Note Visit Start Time 09:47 Visit Stop Time 10:33 Visit Number 3 (11/01 with eval approved) Number of RECHARGER Visits 1 Evaluation Information Evaluation Date 06/28/24 Precautions Precautions 07/06/24: message from physician WBAT LLE, no restrictions. PT-OP-B Current Condition Start: 06/27/24 15:59 Freq: Status: Active Protocol: Document 07/04/24 10:36 SAK (Rec: 07/04/24 11:32 SAK [id number]) Current Condition History of Current Condition Onset Date February 24 2024 Current Complaints left ankle pain and weakness History of Current Condition States on 23 of February she did some chores, layed down for a nap, woke up with left ankle throbbing, discolored, swollen , bruise lateral ankle, has persisted. Doctor's initially thought Raynad's at walk in clinic, was sent to ER. x-ray negative, diagnosed with sprain, sent home. MRI showed mild to moderate tendinosis and intrasubstance partial thickness tear peroneus longus extending from level of lateral melleolus tip to distal insertion 1st metatarsal base. Was on Gabapentin for nerve pain due to symptoms of CRPS Currently no meds except Ambien. Also recent surgery for removal of labial cyst. Wearing lace up ankle brace, socks with comopression at arch. No history of sprain or other injury except left knee ligamentous tear thinks medial collarateral. Now doing leg lifts, leg circles, ankle dorsiflexion and pf, ankle circles hurt. Hasn't tried ice or heat. Hasn't seen sql dba for 1 1/2 months: PT ordered at that time but initially waited for call from PT clinic, so just starting now. NWB since 23 of February. Only approved previously for ankle df ex by sql dba. Inc pain with touch, pressure, weight bearing. Using axillary crutches. Water walking was recommended for patient but she is unable to afford. Prior Treatments and Tests no other, no ice or heat. right calf 32.9cm left 29.5 PT-OP-C Subjective Start: 06/27/24 15:59 Freq: Status: Active Protocol: Document 07/06/24 09:47 SP (Rec: 07/06/24 10:42 SP [id number]) OP-PT Subjective Patient Comments Patient Comments Pt reports alot pain yesterday . So limited ex: calf stretch, DF holds due to pain. stretch helped but short lived. Is taking Naproxin for pain and CP home. Arrives with ankle brace L ankle using crutches swing gait, demonstrating LLE. PT-OP-G Mobility & Gait Start: 06/27/24 15:59 Freq: Status: Active Protocol: Document 06/28/24 09:46 SAK (Rec: 06/28/24 16:52 [facility] [id number]) OP Gait Assessment Gait Gait Assistance Required: Independent Able to Maintain Weight Bearing Status Yes During Gait Assistive Devices Assistive Device Axillary Crutches Orthotic/Prosthetic Devices or Brace: Yes Factors Limiting Gait Function Factors Limiting Gait Function Pain Comments Gait Comments touch down weight bearing PT-OP-J Posture/Palpation/Skin Start: 06/27/24 15:59 Freq: Status: Active Protocol: Document 06/28/24 09:46 SAK (Rec: 06/28/24 16:52 [facility] [id number]) Palpation Assessment Location left ankle Palpation Location peronal tendon at lateral malleolus, posterior calf, bottom of michell Palpation Findings Edema,Soft Tissue Tightness, Tenderness PT-OP-K Range of Motion Start: 06/27/24 15:59 Freq: Status: Active Protocol: Document 06/28/24 09:46 SAK (Rec: 06/28/24 16:52 SAK [id number]) Ankle and Foot Goniometric Range of Motion Ankle and Foot ROM Limitations Comments see assessment part of note PT-OP-M Strength Start: 06/27/24 15:59 Freq: Status: Active Protocol: Document 06/28/24 09:46 SAK (Rec: 06/28/24 16:52 [facility] [id number]) Ankle/Foot Strength Ankle and Foot Manual Muscle Testing Left Dorsiflexion (L4) 3- Fair- Plantarflexion (S1) 3+ Fair+ Inversion 3- Fair- Eversion (S1) 3- Fair- Right Dorsiflexion (L4) 5 Normal Plantarflexion (S1) 5 Normal Inversion 5 Normal Eversion (S1) 5 Normal PT-OP-Q Treatments Start: 06/27/24 15:59 Freq: Status: Active Protocol: Document 07/06/24 09:47 SP (Rec: 07/06/24 10:42 SP [id number]) Therapeutic Exercises Sitting Exercises toe abduction Sitting Exercise Name declined HO Side left Reps/Minutes 5 reps Comments for intrinic AROM- pnfree reported LAQ Sitting Exercise Name added to HEP declined HO Side left Resistance AROM Reps/Minutes x10 reps Comments quad quivering, extension tolerate range with incision labial area. towel scrunch Equipment Used towel Reps/Minutes 5x then marble bean picker 7 Comments pnfree ankle ev Sitting Exercise Name jhonny Side left Resistance AROM Reps/Minutes x5 reps tolerant range and pain ankle inv Sitting Exercise Name Isometric Side left Equipment Used against R foot Reps/Minutes 5 SH x5 Comments gentle ankle PF Sitting Exercise Name concentric PF, eccentric DF range hernan (limited) Side left Resistance AROM> TB #2 hammock Reps/Minutes 10x Comments good feedback low level 2/10 pain ankle df Sitting Exercise Name AROM Side left Reps/Minutes 10x 5 SH 3x/day Comments good feedback tolerance. gastroc stretch Side left Equipment Used L2 TB vs flat sheet-same Reps/Minutes 2x30 Comments long sit Standing Exercises weight shift Standing Exercise Name fwd/bck, side, toes/heels (no lift) Side bilateral Resistance 07/06/24- WBAT- message from physician Equipment Used contact table Reps/Minutes 10 Comments cued soft L knee quad, HS, calf support enagement, upright posture Gait Training Gait Activity 2 Device Used axillary cruches, ankle brace Level of Assistance SBA Surface level Distance/Duration 20 ft leaving appt Treatment Focus heel/toe gait with WBAT LLE Comments cued wt shift onto LLE tolerated, heel toe gait phase tolerance, limited toe off due to pain heel into calf. Manual Therapy Treatment Consent Patient gave verbal consent for manual Yes treatment Soft Tissue Mobilization left calf Mobilization Type Myofascial Release,Strumming Body Position Supine peroneus long Body Location L post lateral malleoli Mobilization Type Cross-Friction Intensity/Depth Moderate Body Position Supine Joint Mobilizations L ankle Joint talocrual PA, MTP gross med/ lat, MTP PA Comments gentle PROM- good feeback PT-OP-R Modalities Start: 06/27/24 15:59 Freq: Status: Active Protocol: Document 07/04/24 10:36 SAK (Rec: 07/04/24 11:32 SAK [id number]) Hot Pack/Cold Pack Treatment Cold Pack Location left abkle Patient Position Hooklying Patient Tolerance Good PT-OP-T Assessment and Plan Start: 06/27/24 15:59 Freq: Status: Active Protocol: Document 07/06/24 09:47 SP (Rec: 07/06/24 10:42 SP [id number]) Physical Therapy Assessment Goals Three Impairment muscle wasting left calf 2.7 cm smaller than right [facility] Room Attendant Goal (LTG) Normalize muscle tone left calf to within 1 cm of right for improved left LE function LTG Duration 09/28/24 One Impairment lacking full ROM and strength left ankle Short Term Goal (STG) Patient will be instructed in HEP for purposes of left ankle ROM and strength STG Duration 08/11/24 Nursing Home Goal (LTG) Patient will be independent and compliant with HEP and demonstrate full active ROM of her left ankle and 5/5 muscle strength to allow her to return to prior functional level. LTG Duration 09/28/24 Two Impairment Patient requires the use of crutches for gait and cannot tolerate WBleft LE Short Term Goal (STG) Patient will be able to ambulate with crutches on level surfacewith normal gait pattern without increase in pain STG Duration 08/11/24 [facility] Room Attendant Goal (LTG) Patient will be able to ambulate without assistive device on all usual surfaces without an increase in pain LTG Duration 09/28/24 Assessment Summary Assessment Pt good tolerance to gentle manual and ed self application is also performing home. Improved tolerance there ex today. Improved wt shift WB into LLE with soft knee, unsteady R knee and quad tiring reported, Contact table safety support. Improved 2 pt gait /c crutches with little more WB LLE tolerated, limited toe off range tolerance due to pain. Will apply CP at home . Physical Therapy Plan Frequency and Duration Frequency of Treatment 2x/Week Duration of treatment (weeks) 12 Plan of Care Start Date 06/28/24 Plan of Care End Date 09/28/23 Therapeutic Interventions Therapeutic Interventions Gait Training,Home Exercise Program,Manual Therapy, Neuromuscular Re-education, Patient/Caregiver Education, Self-Care/Home Management,Soft Tissue Mobilization,Taping, Therapeutic Activities, Therapeutic Exercises Modalities Cold Pack/Ice Massage,Electric Stimulation,Hot Packs, Infrared Therapy,Iontophoresis ,Ultrasound Next Visit Focus/Plan Next Note Type Treatment Note Next Visit Plan Assess response to last session, continue gentle progression of weight shifting , inc weight bearing with gait as tolerated. Cold laser. Review HEP.
--- NOTE | 2024-07-11 10:31 | PT.OTN ---
Current Diagnoses Causalgia of left lower limb (07/11/24) Peroneal tendinitis, left leg (07/11/24) Difficulty in walking, not elsewhere classified (07/11/24) Physical Therapy Treatment Note PT-OP-A Visit Information Start: 06/27/24 15:59 Freq: Status: Active Protocol: Document 07/11/24 09:51 SP (Rec: 07/11/24 10:49 SP [id number]) Out-Patient Physical Therapy Visit Information Visit Information Visit Type Treatment Note Visit Start Time 09:51 Visit Stop Time 10:31 Visit Number 4 (12/02 with eval approved) Number of HALFTONE OPERATOR Visits 2 Evaluation Information Evaluation Date 06/28/24 Precautions Precautions 07/06/24: message from physician WBAT LLE, no restrictions. PT-OP-B Current Condition Start: 06/27/24 15:59 Freq: Status: Active Protocol: Document 07/04/24 10:36 SAK (Rec: 07/04/24 11:32 SAK [id number]) Current Condition History of Current Condition Onset Date February 24 2024 Current Complaints left ankle pain and weakness History of Current Condition States on 23 of February she did some chores, layed down for a nap, woke up with left ankle throbbing, discolored, swollen , bruise lateral ankle, has persisted. Doctor's initially thought Raynad's at walk in clinic, was sent to ER. x-ray negative, diagnosed with sprain, sent home. MRI showed mild to moderate tendinosis and intrasubstance partial thickness tear peroneus longus extending from level of lateral melleolus tip to distal insertion 1st metatarsal base. Was on Gabapentin for nerve pain due to symptoms of CRPS Currently no meds except Ambien. Also recent surgery for removal of labial cyst. Wearing lace up ankle brace, socks with comopression at arch. No history of sprain or other injury except left knee ligamentous tear thinks medial collarateral. Now doing leg lifts, leg circles, ankle dorsiflexion and pf, ankle circles hurt. Hasn't tried ice or heat. Hasn't seen director of marketing [employer] for 1 1/2 months: PT ordered at that time but initially waited for call from PT clinic, so just starting now. NWB since 23 of February. Only approved previously for ankle df ex by director of marketing [employer]. Inc pain with touch, pressure, weight bearing. Using axillary crutches. Water walking was recommended for patient but she is unable to afford. Prior Treatments and Tests no other, no ice or heat. right calf 32.9cm left 29.5 PT-OP-C Subjective Start: 06/27/24 15:59 Freq: Status: Active Protocol: Document 07/11/24 09:51 SP (Rec: 07/11/24 10:49 SP [id number]) OP-PT Subjective Patient Comments Patient Comments Pt report feeling out of breath this am, arrival HR 103 bpm, when got out of car was 116 bpm. Stating having constipation discomfort issues R lower quadrant, taking MiraLAX for support. Arrives improved increasing WB on L leg with Shady crutches, not pain reports. PT-OP-G Mobility & Gait Start: 06/27/24 15:59 Freq: Status: Active Protocol: Document 06/28/24 09:46 SAK (Rec: 06/28/24 16:52 [facility] [id number]) OP Gait Assessment Gait Gait Assistance Required: Independent Able to Maintain Weight Bearing Status Yes During Gait Assistive Devices Assistive Device Axillary Crutches Orthotic/Prosthetic Devices or Brace: Yes Factors Limiting Gait Function Factors Limiting Gait Function Pain Comments Gait Comments touch down weight bearing PT-OP-J Posture/Palpation/Skin Start: 06/27/24 15:59 Freq: Status: Active Protocol: Document 06/28/24 09:46 SAK (Rec: 06/28/24 16:52 [facility] [id number]) Palpation Assessment Location left ankle Palpation Location peronal tendon at lateral malleolus, posterior calf, bottom of michell Palpation Findings Edema,Soft Tissue Tightness, Tenderness PT-OP-K Range of Motion Start: 06/27/24 15:59 Freq: Status: Active Protocol: Document 06/28/24 09:46 SAK (Rec: 06/28/24 16:52 [facility] [id number]) Ankle and Foot Goniometric Range of Motion Ankle and Foot ROM Limitations Comments see assessment part of note PT-OP-M Strength Start: 06/27/24 15:59 Freq: Status: Active Protocol: Document 06/28/24 09:46 SAK (Rec: 06/28/24 16:52 [facility] [id number]) Ankle/Foot Strength Ankle and Foot Manual Muscle Testing Left Dorsiflexion (L4) 3- Fair- Plantarflexion (S1) 3+ Fair+ Inversion 3- Fair- Eversion (S1) 3- Fair- Right Dorsiflexion (L4) 5 Normal Plantarflexion (S1) 5 Normal Inversion 5 Normal Eversion (S1) 5 Normal PT-OP-Q Treatments Start: 06/27/24 15:59 Freq: Status: Active Protocol: Document 07/11/24 09:51 SP (Rec: 07/11/24 10:49 SP [id number]) Therapeutic Exercises Sitting Exercises mini squat Sitting Exercise Name reviewed a self AROM at bedside Resistance AROM Reps/Minutes x10 Comments cues try WB into LLE equal- no pain reported towel scrunch Equipment Used towel Reps/Minutes 5x then marble metal pickling equipment operator 7 Comments pnfree ankle ev Side left Resistance AROM> TB #1 light blue Reps/Minutes x5 reps tolerant range and pain ankle inv Side left Resistance AROM Reps/Minutes x10 Comments gentle slow motion ankle PF Sitting Exercise Name concentric PF, eccentric DF range hernan (limited) Side left Resistance TB #2 hammock Reps/Minutes 10x Comments good feedback pnfree ankle df Side left Resistance AROM> TB #1 light blue Reps/Minutes 10, 2x day Comments good feedback tolerance. Standing Exercises calf stretch Standing Exercise Name gastroc Side left Equipment Used hands onwall Reps/Minutes 20 SH Comments cued upright posture, gentle range hernan- no pain gentle stretch weight shift Standing Exercise Name fwd/bck, side, toes/heels (no lift) Side bilateral Resistance WBAT Equipment Used PRN table as needed- not needed Reps/Minutes 10 Comments cued soft L knee quad, HS, calf support enagement, upright posture Gait Training Gait Activity LRAD Device Used SQC vs SPC in RUE Distance/Duration 50 ft x2 Treatment Focus sequencing AD in 2pt with LLE, WBAT, trunk midline Comments cued upright posture midline, R scap stability WB on improved QC vs SPC. Noted improved LLE WB using QC vs SPC at this time. WIll acquire from [employer] 2 Device Used axillary cruches ankle brace Level of Assistance SBA Surface level Distance/Duration 50 ft x2 laps Treatment Focus heel/toe gait with WBAT LLE Comments Improved increase WB and less BUE support needed. Manual Therapy Treatment Consent Patient gave verbal consent for manual Yes treatment Soft Tissue Mobilization left calf Body Location gastroc, soleus, achilles, peroneals, plantar fascia Mobilization Type Myofascial Release,Strumming Body Position Supine peroneus long Body Location L post lateral malleoli Mobilization Type Cross-Friction Intensity/Depth Moderate Body Position Supine Joint Mobilizations L ankle Joint talocrual PA, MTP gross med/ lat, MTP PA Comments gentle PROM- good feeback Self-Care/Home Management Treatment Education Patient Education Pain Management,Safety Other Education Education on fiber consumption support BM, activity and self massage 1 x counter clockwise then rest clockwise for support. Also safety awareness if havign increased pain seek further medical treatment. PT-OP-R Modalities Start: 06/27/24 15:59 Freq: Status: Active Protocol: Document 07/04/24 10:36 SAK (Rec: 07/04/24 11:32 SAK [id number]) Hot Pack/Cold Pack Treatment Cold Pack Location left abkle Patient Position Hooklying Patient Tolerance Good PT-OP-T Assessment and Plan Start: 06/27/24 15:59 Freq: Status: Active Protocol: Document 07/11/24 09:51 SP (Rec: 07/11/24 10:49 SP [id number]) Physical Therapy Assessment Goals Three Impairment muscle wasting left calf 2.7 cm smaller than right Product Sales Engineer Goal (LTG) Normalize muscle tone left calf to within 1 cm of right for improved left LE function LTG Duration 09/28/24 One Impairment lacking full ROM and strength left ankle Short Term Goal (STG) Patient will be instructed in HEP for purposes of left ankle ROM and strength STG Duration 08/11/24 Half-Way Goal (LTG) Patient will be independent and compliant with HEP and demonstrate full active ROM of her left ankle and 5/5 muscle strength to allow her to return to prior functional level. LTG Duration 09/28/24 Two Impairment Patient requires the use of crutches for gait and cannot tolerate WBleft LE Short Term Goal (STG) Patient will be able to ambulate with crutches on level surfacewith normal gait pattern without increase in pain STG Duration 08/11/24 Half-Way Goal (LTG) Patient will be able to ambulate without assistive device on all usual surfaces without an increase in pain LTG Duration 09/28/24 Assessment Summary Assessment Pt tolerated further progression L ankle AROM IV and added resistance EV, DF, PF without increased pain and improved mobility. Improved wB into LLE wt shifts, tolerated progression use QC more stable than SPC this tx, cues for midline posture support without L ankle pain. Will acquire QC and SPC from [employer] Fri. to transition off crutches as noted improvement in PT. Physical Therapy Plan Frequency and Duration Frequency of Treatment 2x/Week Duration of treatment (weeks) 12 Plan of Care Start Date 06/28/24 Plan of Care End Date 09/28/23 Therapeutic Interventions Therapeutic Interventions Gait Training,Home Exercise Program,Manual Therapy, Neuromuscular Re-education, Patient/Caregiver Education, Self-Care/Home Management,Soft Tissue Mobilization,Taping, Therapeutic Activities, Therapeutic Exercises Modalities Cold Pack/Ice Massage,Electric Stimulation,Hot Packs, Infrared Therapy,Iontophoresis ,Ultrasound Next Visit Focus/Plan Next Note Type Treatment Note Next Visit Plan Assess response to last session, continue gentle progression of weight shifting , inc weight bearing with gait as tolerated. Cold laser. Review HEP.
--- NOTE | 2024-07-14 10:20 | PT.OTN ---
Current Diagnoses Causalgia of left lower limb (07/14/24) Peroneal tendinitis, left leg (07/14/24) Difficulty in walking, not elsewhere classified (07/14/24) Physical Therapy Treatment Note PT-OP-A Visit Information Start: 06/27/24 15:59 Freq: Status: Active Protocol: Document 07/14/24 09:45 SP (Rec: 07/14/24 10:50 SP [id number]) Out-Patient Physical Therapy Visit Information Visit Information Visit Type Treatment Note Visit Start Time 09:45 Visit Stop Time 10:20 Visit Number 5 (01/01 with eval approved) Number of COLOR EXPERT Visits 3 Evaluation Information Evaluation Date 06/28/24 Precautions Precautions 07/06/24: message from physician WBAT LLE, no restrictions. PT-OP-B Current Condition Start: 06/27/24 15:59 Freq: Status: Active Protocol: Document 07/04/24 10:36 SAK (Rec: 07/04/24 11:32 SAK [id number]) Current Condition History of Current Condition Onset Date February 24 2024 Current Complaints left ankle pain and weakness History of Current Condition States on 23 of February she did some chores, layed down for a nap, woke up with left ankle throbbing, discolored, swollen , bruise lateral ankle, has persisted. Doctor's initially thought Raynad's at walk in clinic, was sent to ER. x-ray negative, diagnosed with sprain, sent home. MRI showed mild to moderate tendinosis and intrasubstance partial thickness tear peroneus longus extending from level of lateral melleolus tip to distal insertion 1st metatarsal base. Was on Gabapentin for nerve pain due to symptoms of CRPS Currently no meds except Ambien. Also recent surgery for removal of labial cyst. Wearing lace up ankle brace, socks with comopression at arch. No history of sprain or other injury except left knee ligamentous tear thinks medial collarateral. Now doing leg lifts, leg circles, ankle dorsiflexion and pf, ankle circles hurt. Hasn't tried ice or heat. Hasn't seen bench manager for 1 1/2 months: PT ordered at that time but initially waited for call from PT clinic, so just starting now. NWB since 23 of February. Only approved previously for ankle df ex by bench manager. Inc pain with touch, pressure, weight bearing. Using axillary crutches. Water walking was recommended for patient but she is unable to afford. Prior Treatments and Tests no other, no ice or heat. right calf 32.9cm left 29.5 PT-OP-C Subjective Start: 06/27/24 15:59 Freq: Status: Active Protocol: Document 07/14/24 09:45 SP (Rec: 07/14/24 10:50 SP [id number]) OP-PT Subjective Patient Comments Patient Comments Pt reports felt pretty good after last tx, again Tues, Wed but might have been due to extra activity (walking and stair mgt) and sore day before . R leg even buckled. PT-OP-G Mobility & Gait Start: 06/27/24 15:59 Freq: Status: Active Protocol: Document 06/28/24 09:46 SAK (Rec: 06/28/24 16:52 SAK [id number]) OP Gait Assessment Gait Gait Assistance Required: Independent Able to Maintain Weight Bearing Status Yes During Gait Assistive Devices Assistive Device Axillary Crutches Orthotic/Prosthetic Devices or Brace: Yes Factors Limiting Gait Function Factors Limiting Gait Function Pain Comments Gait Comments touch down weight bearing PT-OP-J Posture/Palpation/Skin Start: 06/27/24 15:59 Freq: Status: Active Protocol: Document 06/28/24 09:46 SAK (Rec: 06/28/24 16:52 SAK [id number]) Palpation Assessment Location left ankle Palpation Location peronal tendon at lateral malleolus, posterior calf, bottom of michell Palpation Findings Edema,Soft Tissue Tightness, Tenderness PT-OP-K Range of Motion Start: 06/27/24 15:59 Freq: Status: Active Protocol: Document 06/28/24 09:46 SAK (Rec: 06/28/24 16:52 SAK [id number]) Ankle and Foot Goniometric Range of Motion Ankle and Foot ROM Limitations Comments see assessment part of note PT-OP-M Strength Start: 06/27/24 15:59 Freq: Status: Active Protocol: Document 06/28/24 09:46 SAK (Rec: 06/28/24 16:52 SAK [id number]) Ankle/Foot Strength Ankle and Foot Manual Muscle Testing Left Dorsiflexion (L4) 3- Fair- Plantarflexion (S1) 3+ Fair+ Inversion 3- Fair- Eversion (S1) 3- Fair- Right Dorsiflexion (L4) 5 Normal Plantarflexion (S1) 5 Normal Inversion 5 Normal Eversion (S1) 5 Normal PT-OP-Q Treatments Start: 06/27/24 15:59 Freq: Status: Active Protocol: Document 07/14/24 09:45 SP (Rec: 07/14/24 10:50 SP [id number]) Therapeutic Exercises Sidelying Exercises abduction Sidelying Exercise Name added to HEP /c HO Side bilateral Resistance AROM Equipment Used opp LE bent, pillow under top leg Reps/Minutes x8 reps Comments cued TA, stacked on side Sitting Exercises LAQ Sitting Exercise Name added TB Side left Resistance AROM> TB #1 Reps/Minutes x10 reps Comments good quad quivering, pnfree ankle ev Side left Resistance TB #1 light blue Reps/Minutes x5 reps tolerant range and pain Comments pnfree ankle inv Side left Resistance AROM Reps/Minutes x10 Comments gentle slow pnfree motion/ROM ankle PF Sitting Exercise Name concentric PF, eccentric DF range hernan (limited) Side left Resistance TB #2 hammock Reps/Minutes 10x Comments good feedback pnfree ankle df Side left Resistance TB #1 light blue Reps/Minutes 10, 2x day Comments good feedback tolerance. Standing Exercises weight shift Standing Exercise Name fwd/bck, side, toes/heels (no lift) Side bilateral Resistance WBAT Equipment Used PRN table as needed- not needed Reps/Minutes 10 Comments cued soft L knee quad, HS, calf support enagement, upright posture Gait Training Gait Activity LRAD Device Used SPC in RUE Distance/Duration 50 ft x2 Treatment Focus sequencing AD in 2pt with LLE, WBAT, trunk midline Comments Improved scap stability. Noted improved LLE WB, cues midline trunk, noted lessening RUE WB on SPC but tires quickly, reports L>R hip weakness with longer distance. 2 Device Used axillary cruches ankle brace Level of Assistance SBA Surface level Distance/Duration 100 ft 2 laps Treatment Focus heel/toe gait with WBAT LLE Comments 2 pt> 4 PT gait. Improved increase WB and less BUE support needed. Manual Therapy Treatment Consent Patient gave verbal consent for manual Yes treatment Soft Tissue Mobilization left calf Body Location gastroc, soleus, achilles, peroneals, plantar fascia Mobilization Type Myofascial Release,Rolling Body Position Supine Comments gentle MF glides, gentle rolling peroneus long Body Location L post lateral malleoli Mobilization Type Cross-Friction Intensity/Depth Superficial Body Position Supine Joint Mobilizations L ankle Joint talocrual PA, MTP gross med/ lat, MTP PA Comments gentle/ light PROM Taping 1 Body Location left peroneus longus, calf, arch Treatment Focus pain reduction Type of Tape Kinesio Tape Skin Inspection intact Comments insertion to origin tension I strip 1. peroneal 2. arch support 3. achilles/calf GOod understanding 2-4 day wear if supportive and no irritation. PT-OP-R Modalities Start: 06/27/24 15:59 Freq: Status: Active Protocol: Document 07/04/24 10:36 SAK (Rec: 07/04/24 11:32 SAK [id number]) Hot Pack/Cold Pack Treatment Cold Pack Location left abkle Patient Position Hooklying Patient Tolerance Good PT-OP-T Assessment and Plan Start: 06/27/24 15:59 Freq: Status: Active Protocol: Document 07/14/24 09:45 SP (Rec: 07/14/24 10:50 SP [id number]) Physical Therapy Assessment Goals Three Impairment muscle wasting left calf 2.7 cm smaller than right Tree Faller Goal (LTG) Normalize muscle tone left calf to within 1 cm of right for improved left LE function LTG Duration 09/28/24 One Impairment lacking full ROM and strength left ankle Short Term Goal (STG) Patient will be instructed in HEP for purposes of left ankle ROM and strength STG Duration 08/11/24 Tree Faller Goal (LTG) Patient will be independent and compliant with HEP and demonstrate full active ROM of her left ankle and 5/5 muscle strength to allow her to return to prior functional level. LTG Duration 09/28/24 Two Impairment Patient requires the use of crutches for gait and cannot tolerate WBleft LE Short Term Goal (STG) Patient will be able to ambulate with crutches on level surfacewith normal gait pattern without increase in pain STG Duration 08/11/24 Residential Goal (LTG) Patient will be able to ambulate without assistive device on all usual surfaces without an increase in pain LTG Duration 09/28/24 Assessment Summary Assessment Pt reports continue no pain with resisted ankle exercises. Improved stability and more midline alignment progression with SPC today, tires quickly in hip abd and quads reported. Instructed hip abd strengthening on side and hooklying for support increased endurance gait for ankle stabililty support. Pt reports just little discomfort over L peroneal end tx. DIscussed continue crutches longer distances and SPC ( borrowing from [employer] today 1-2) to support short distance progression LLE WB pnfree. Physical Therapy Plan Frequency and Duration Frequency of Treatment 2x/Week Duration of treatment (weeks) 12 Plan of Care Start Date 06/28/24 Plan of Care End Date 09/28/23 Therapeutic Interventions Therapeutic Interventions Gait Training,Home Exercise Program,Manual Therapy, Neuromuscular Re-education, Patient/Caregiver Education, Self-Care/Home Management,Soft Tissue Mobilization,Taping, Therapeutic Activities, Therapeutic Exercises Modalities Cold Pack/Ice Massage,Electric Stimulation,Hot Packs, Infrared Therapy,Iontophoresis ,Ultrasound Next Visit Focus/Plan Next Note Type Treatment Note Next Visit Plan Assess HEP, gait phases, LE strengthening to support WB LLE as tolerated, LRAD that supports normak gait.. Cold laser. Review HEP.
--- NOTE | 2024-07-18 16:30 | PT.OTN ---
Current Diagnoses Causalgia of left lower limb (07/18/24) Peroneal tendinitis, left leg (07/18/24) Difficulty in walking, not elsewhere classified (07/18/24) Physical Therapy Treatment Note PT-OP-A Visit Information Start: 06/27/24 15:59 Freq: Status: Active Protocol: Document 07/18/24 10:43 SAK (Rec: 07/18/24 11:30 SAK [id number]) Out-Patient Physical Therapy Visit Information Visit Information Visit Type Treatment Note Visit Start Time 09:45 Visit Stop Time 10:30 Visit Number 6/12 Number of WOOL SPOTTER Visits 0 Evaluation Information Evaluation Date 06/28/24 Precautions Precautions 07/06/24: message from physician WBAT LLE, no restrictions. PT-OP-B Current Condition Start: 06/27/24 15:59 Freq: Status: Active Protocol: Document 07/18/24 10:43 SAK (Rec: 07/18/24 11:30 SAK [id number]) Current Condition History of Current Condition Onset Date February 24 2024 Current Complaints left ankle pain and weakness History of Current Condition States on 23 of February she did some chores, layed down for a nap, woke up with left ankle throbbing, discolored, swollen , bruise lateral ankle, has persisted. Doctor's initially thought Raynad's at walk in clinic, was sent to ER. x-ray negative, diagnosed with sprain, sent home. MRI showed mild to moderate tendinosis and intrasubstance partial thickness tear peroneus longus extending from level of lateral melleolus tip to distal insertion 1st metatarsal base. Was on Gabapentin for nerve pain due to symptoms of CRPS Currently no meds except Ambien. Also recent surgery for removal of labial cyst. Wearing lace up ankle brace, socks with comopression at arch. No history of sprain or other injury except left knee ligamentous tear thinks medial collarateral. Now doing leg lifts, leg circles, ankle dorsiflexion and pf, ankle circles hurt. Hasn't tried ice or heat. Hasn't seen emotional support teacher for 1 1/2 months: PT ordered at that time but initially waited for call from PT clinic, so just starting now. NWB since 23 of February. Only approved previously for ankle df ex by emotional support teacher. Inc pain with touch, pressure, weight bearing. Using axillary crutches. Water walking was recommended for patient but she is unable to afford. Prior Treatments and Tests no other, no ice or heat. right calf 32.9cm left 29.5 PT-OP-C Subjective Start: 06/27/24 15:59 Freq: Status: Active Protocol: Document 07/18/24 10:43 SAK (Rec: 07/18/24 11:30 [facility] [id number]) OP-PT Subjective Patient Comments Patient Comments Patient reports still constipated , hasn't had bowel movement since 07/06/24, has been in urgent care/ER previously for same issue. Not eating much. Agrees to contact her doctor today regarding this. Pain variable ankle 0-03/01 PT-OP-G Mobility & Gait Start: 06/27/24 15:59 Freq: Status: Active Protocol: Document 06/28/24 09:46 [facility] (Rec: 06/28/24 16:52 [facility] [id number]) OP Gait Assessment Gait Gait Assistance Required: Independent Able to Maintain Weight Bearing Status Yes During Gait Assistive Devices Assistive Device Axillary Crutches Orthotic/Prosthetic Devices or Brace: Yes Factors Limiting Gait Function Factors Limiting Gait Function Pain Comments Gait Comments touch down weight bearing PT-OP-J Posture/Palpation/Skin Start: 06/27/24 15:59 Freq: Status: Active Protocol: Document 06/28/24 09:46 [facility] (Rec: 06/28/24 16:52 [facility] [id number]) Palpation Assessment Location left ankle Palpation Location peronal tendon at lateral malleolus, posterior calf, bottom of michell Palpation Findings Edema,Soft Tissue Tightness, Tenderness PT-OP-K Range of Motion Start: 06/27/24 15:59 Freq: Status: Active Protocol: Document 06/28/24 09:46 [facility] (Rec: 06/28/24 16:52 [facility] [id number]) Ankle and Foot Goniometric Range of Motion Ankle and Foot ROM Limitations Comments see assessment part of note PT-OP-M Strength Start: 06/27/24 15:59 Freq: Status: Active Protocol: Document 06/28/24 09:46 [facility] (Rec: 06/28/24 16:52 [facility] [id number]) Ankle/Foot Strength Ankle and Foot Manual Muscle Testing Left Dorsiflexion (L4) 3- Fair- Plantarflexion (S1) 3+ Fair+ Inversion 3- Fair- Eversion (S1) 3- Fair- Right Dorsiflexion (L4) 5 Normal Plantarflexion (S1) 5 Normal Inversion 5 Normal Eversion (S1) 5 Normal PT-OP-Q Treatments Start: 06/27/24 15:59 Freq: Status: Active Protocol: Document 07/18/24 10:43 SAK (Rec: 07/18/24 11:30 SAK [id number]) Cardio Equipment Recumbent Bicycle Duration (Minutes) 5 Resistance 1 Seat Position 5 Therapeutic Exercises Supine Exercises HC stretch Reps/Minutes 2x39 Comments manual SLR Reps/Minutes 10x Prone Exercises hip ext Reps/Minutes 10x Sidelying Exercises abduction Sidelying Exercise Name review HEP Side bilateral Resistance AROM Equipment Used opp LE bent, pillow under top leg Reps/Minutes x8 reps Comments cued TA, stacked on side Sitting Exercises LAQ Sitting Exercise Name added TB Side left Resistance AROM> TB #1 Reps/Minutes x10 reps Comments good quad quivering, pnfree ankle ev Sitting Exercise Name HEP ankle inv Sitting Exercise Name HEP ankle PF Sitting Exercise Name HEP ankle df Sitting Exercise Name HEP Standing Exercises calf stretch Standing Exercise Name gastroc Side left Equipment Used hands onwall Reps/Minutes 20 SH Comments cued upright posture, gentle range hernan- no pain gentle stretch weight shift Standing Exercise Name fwd/bck, side, toes/heels (no lift) Side bilateral Resistance WBAT Equipment Used PRN table as needed- not needed Reps/Minutes 10 Comments cued soft L knee quad, HS, calf support enagement, upright posture Gait Training Gait Activity LRAD Device Used [facility] Distance/Duration 50 ft x2 Treatment Focus sequencing AD in 2pt with LLE, WBAT, trunk midline Comments notable limp despite using canes, improved with use of mirror, cues for smaller steps 2 Device Used parallel bars Level of Assistance SBA, cues Surface level Distance/Duration 10 ft x 4 Treatment Focus heel/toe gait with WBAT LLE Comments UE support as needed Manual Therapy Treatment Consent Patient gave verbal consent for manual Yes treatment Soft Tissue Mobilization left calf Body Location gastroc, soleus, achilles, peroneals, plantar fascia Mobilization Type Myofascial Release,Rolling Body Position Supine Comments gentle MF glides, gentle rolling peroneus long Body Location L post lateral malleoli Mobilization Type Cross-Friction Intensity/Depth light Body Position Supine Joint Mobilizations L ankle Joint talocrual PA, MTP gross med/ lat, MTP PA Comments gentle/ light PROM Taping 1 Comments Trial no tape per patient request, unsure if helping Neuro Re-Education Treatment Balance Activities tiltboard Details EO, EC bal, weight shift Reps/Duration 4 min foam stand Details EO, EC Reps/Duration 1 min Comments cues for spread toes, feel ankle strategy PT-OP-R Modalities Start: 06/27/24 15:59 Freq: Status: Active Protocol: Document 07/18/24 10:43 SAK (Rec: 07/18/24 11:30 SAK [id number]) Infrared Treatment Treatment peroneus longus Body Position Sidelying Continuous/Pulsed Continuous Program or Protocal muscle pain and stiffness, chronic PT-OP-T Assessment and Plan Start: 06/27/24 15:59 Freq: Status: Active Protocol: Document 07/18/24 10:43 SAK (Rec: 07/18/24 11:30 [facility] [id number]) Physical Therapy Assessment Goals Three Impairment muscle wasting left calf 2.7 cm smaller than right Alf Goal (LTG) Normalize muscle tone left calf to within 1 cm of right for improved left LE function LTG Duration 09/28/24 One Impairment lacking full ROM and strength left ankle Short Term Goal (STG) Patient will be instructed in HEP for purposes of left ankle ROM and strength STG Duration 08/11/24 Transportation Planning Technician Goal (LTG) Patient will be independent and compliant with HEP and demonstrate full active ROM of her left ankle and 5/5 muscle strength to allow her to return to prior functional level. LTG Duration 09/28/24 Two Impairment Patient requires the use of crutches for gait and cannot tolerate WBleft LE Short Term Goal (STG) Patient will be able to ambulate with crutches on level surfacewith normal gait pattern without increase in pain STG Duration 08/11/24 Alf Goal (LTG) Patient will be able to ambulate without assistive device on all usual surfaces without an increase in pain LTG Duration 09/28/24 Assessment Summary Assessment Patient compliant to HEP. Hip abduction weakness evident functionally with gait, attempt SLS left. Pain improved but variable. . Not sure if tape helpful so trial without today. Patient ambulating now with 2 hurrycanes, gradually improving gait tolerance, still fatigues quite quickly. Trial cold laser to facilitate healing and decrease pain. May want to consider iontophoresis. Physical Therapy Plan Frequency and Duration Frequency of Treatment 2x/Week Duration of treatment (weeks) 12 Plan of Care Start Date 06/28/24 Plan of Care End Date 09/28/23 Therapeutic Interventions Therapeutic Interventions Gait Training,Home Exercise Program,Manual Therapy, Neuromuscular Re-education, Patient/Caregiver Education, Self-Care/Home Management,Soft Tissue Mobilization,Taping, Therapeutic Activities, Therapeutic Exercises Modalities Cold Pack/Ice Massage,Electric Stimulation,Hot Packs, Infrared Therapy,Iontophoresis ,Ultrasound Next Visit Focus/Plan Next Note Type Treatment Note Next Visit Plan REview HEP and progress as indicated. Gait training with LRD, use of mirror as needed. Modalities and manual therapy to decrease pain and improve mobility of foot and ankle. Consider iontophoresis trial.
--- NOTE | 2024-07-25 11:34 | PT.OTN ---
Current Diagnoses Causalgia of left lower limb (07/25/24) Peroneal tendinitis, left leg (07/25/24) Difficulty in walking, not elsewhere classified (07/25/24) Physical Therapy Treatment Note PT-OP-A Visit Information Start: 06/27/24 15:59 Freq: Status: Active Protocol: Document 07/25/24 10:48 SP (Rec: 07/25/24 11:38 SP [id number]) Out-Patient Physical Therapy Visit Information Visit Information Visit Type Treatment Note Visit Start Time 10:48 Visit Stop Time 11:34 Visit Number 7 Number of CERTIFIED REHABILITATION COUNSELOR Visits 1 Evaluation Information Evaluation Date 06/28/24 Precautions Precautions 07/06/24: WBAT LLE, no restrictions. PT-OP-B Current Condition Start: 06/27/24 15:59 Freq: Status: Active Protocol: Document 07/18/24 10:43 SAK (Rec: 07/18/24 11:30 SAK [id number]) Current Condition History of Current Condition Onset Date February 24 2024 Current Complaints left ankle pain and weakness History of Current Condition States on 23 of February she did some chores, layed down for a nap, woke up with left ankle throbbing, discolored, swollen , bruise lateral ankle, has persisted. Doctor's initially thought Raynad's at walk in clinic, was sent to ER. x-ray negative, diagnosed with sprain, sent home. MRI showed mild to moderate tendinosis and intrasubstance partial thickness tear peroneus longus extending from level of lateral melleolus tip to distal insertion 1st metatarsal base. Was on Gabapentin for nerve pain due to symptoms of CRPS Currently no meds except Ambien. Also recent surgery for removal of labial cyst. Wearing lace up ankle brace, socks with comopression at arch. No history of sprain or other injury except left knee ligamentous tear thinks medial collarateral. Now doing leg lifts, leg circles, ankle dorsiflexion and pf, ankle circles hurt. Hasn't tried ice or heat. Hasn't seen resource conservation manager for 1 1/2 months: PT ordered at that time but initially waited for call from PT clinic, so just starting now. NWB since 23 of February. Only approved previously for ankle df ex by resource conservation manager. Inc pain with touch, pressure, weight bearing. Using axillary crutches. Water walking was recommended for patient but she is unable to afford. Prior Treatments and Tests no other, no ice or heat. right calf 32.9cm left 29.5 PT-OP-C Subjective Start: 06/27/24 15:59 Freq: Status: Active Protocol: Document 07/25/24 10:48 SP (Rec: 07/25/24 11:38 SP [id number]) OP-PT Subjective Patient Comments Patient Comments Pt arrives with use 1 hurry cane in RUE patterning with LLE, ankle wrap donned with improved 2pt gait, decreased toe off gait phase, low anterior L ankle pain reported . She stated trying to walk normal and was able to water plants herself and had to raise up on toes with little discomfort but no pain more weakness. PT-OP-G Mobility & Gait Start: 06/27/24 15:59 Freq: Status: Active Protocol: Document 06/28/24 09:46 SAK (Rec: 06/28/24 16:52 [facility] [id number]) OP Gait Assessment Gait Gait Assistance Required: Independent Able to Maintain Weight Bearing Status Yes During Gait Assistive Devices Assistive Device Axillary Crutches Orthotic/Prosthetic Devices or Brace: Yes Factors Limiting Gait Function Factors Limiting Gait Function Pain Comments Gait Comments touch down weight bearing PT-OP-J Posture/Palpation/Skin Start: 06/27/24 15:59 Freq: Status: Active Protocol: Document 06/28/24 09:46 SAK (Rec: 06/28/24 16:52 [facility] [id number]) Palpation Assessment Location left ankle Palpation Location peronal tendon at lateral malleolus, posterior calf, bottom of michell Palpation Findings Edema,Soft Tissue Tightness, Tenderness PT-OP-K Range of Motion Start: 06/27/24 15:59 Freq: Status: Active Protocol: Document 06/28/24 09:46 SAK (Rec: 06/28/24 16:52 [facility] [id number]) Ankle and Foot Goniometric Range of Motion Ankle and Foot ROM Limitations Comments see assessment part of note PT-OP-M Strength Start: 06/27/24 15:59 Freq: Status: Active Protocol: Document 06/28/24 09:46 SAK (Rec: 06/28/24 16:52 [facility] [id number]) Ankle/Foot Strength Ankle and Foot Manual Muscle Testing Left Dorsiflexion (L4) 3- Fair- Plantarflexion (S1) 3+ Fair+ Inversion 3- Fair- Eversion (S1) 3- Fair- Right Dorsiflexion (L4) 5 Normal Plantarflexion (S1) 5 Normal Inversion 5 Normal Eversion (S1) 5 Normal PT-OP-Q Treatments Start: 06/27/24 15:59 Freq: Status: Active Protocol: Document 07/25/24 10:48 SP (Rec: 07/25/24 11:38 SP [id number]) Therapeutic Exercises Sitting Exercises LAQ Sitting Exercise Name review Side left Resistance TB #1> 3# [place] Reps/Minutes 2x10 reps, 2 SH Comments good quad quivering, pnfree ankle ev Sitting Exercise Name HEP Side left Resistance TB 1>2# teal Reps/Minutes 2x10 reps Comments pnfree reported, muscle challenge ankle df Sitting Exercise Name HEP Side left Resistance Tb 1> #2 teal Reps/Minutes 2x10, 2 SH Comments pnfree reported, muscle challenge Standing Exercises calf raises Standing Exercise Name trialed in PT: eccentric and concentric heel raises bottom step Equipment Used bottom 4 step /c rail support Reps/Minutes 5 reps before tiring and cause discomfort Comments cued raise lower painfree range, low reps for benefits effort not pain. ankle mobility Standing Exercise Name trialed in PT- revisit next tx Side left Resistance manual, trial #3 TB anterior L ankle /post R calf (PA L ankle) Equipment Used L foot on 2nd step, vivian rail support Reps/Minutes 5 reps x2 Comments anterior L ankle pain diminished /c PA talus glide- slight benefit /c TB weight shift Standing Exercise Name stride stance fwd/bwd rocking: R foot fwd, toe off L patterning Resistance fwd/bwd rocking- trialed in PT pnfree reported, declined HO Equipment Used front mirror, Hurrycane in RUE positioned front R LE Reps/Minutes x10 reps Comments cues for tall posturing wt shift into fwd RLE while LLE heel lift toe off Gait Training Gait Activity LRAD Device Used 1 hurrycane in RUE Distance/Duration 170 ft around clinic Treatment Focus sequencing AD in 2pt with LLE, WBAT, trunk midline Comments cues for smaller steps, toe off on L Manual Therapy Treatment Consent Patient gave verbal consent for manual Yes treatment Soft Tissue Mobilization left calf Body Location gastroc, soleus, achilles, peroneals, plantar fascia Mobilization Type Myofascial Release,Rolling Body Position Supine Comments gentle MF glides, gentle rolling peroneus long Body Location L post lateral malleoli Mobilization Type Cross-Friction Intensity/Depth light Body Position Supine Taping 1 Body Location L distal achilles and heel fat pad taping Treatment Focus decrease heel pain Type of Tape cover roll and leukotape Skin Inspection normal color, intact Comments 2 layers cover roll, 2 layers leukotape Compression support to inferior and posterior calcaneus. Neuro Re-Education Treatment Balance Activities tiltboard Details weight shift f/b Equipment tilt board no rail support needed easy, POPEYE light rail contact Reps/Duration 10 reps Comments Improved toe off and calf engagement strength progression, pnfree just calf tiring reported. PT-OP-R Modalities Start: 06/27/24 15:59 Freq: Status: Active Protocol: Document 07/18/24 10:43 SAK (Rec: 07/18/24 11:30 SAK [id number]) Infrared Treatment Treatment peroneus longus Body Position Sidelying Continuous/Pulsed Continuous Program or Protocal muscle pain and stiffness, chronic PT-OP-T Assessment and Plan Start: 06/27/24 15:59 Freq: Status: Active Protocol: Document 07/25/24 10:48 SP (Rec: 07/25/24 11:38 SP [id number]) Physical Therapy Assessment Goals Three Impairment muscle wasting left calf 2.7 cm smaller than right Crm Functional Analyst Goal (LTG) Normalize muscle tone left calf to within 1 cm of right for improved left LE function LTG Duration 09/28/24 One Impairment lacking full ROM and strength left ankle Short Term Goal (STG) Patient will be instructed in HEP for purposes of left ankle ROM and strength STG Duration 08/11/24 Long-Term Goal (LTG) Patient will be independent and compliant with HEP and demonstrate full active ROM of her left ankle and 5/5 muscle strength to allow her to return to prior functional level. LTG Duration 09/28/24 Two Impairment Patient requires the use of crutches for gait and cannot tolerate WBleft LE Short Term Goal (STG) Patient will be able to ambulate with crutches on level surfacewith normal gait pattern without increase in pain STG Duration 08/11/24 Long-Term Goal (LTG) Patient will be able to ambulate without assistive device on all usual surfaces without an increase in pain LTG Duration 09/28/24 Assessment Summary Assessment Pt is compliant with HEP. Improved L ankle strength tolerance with increased resistance Level 3 TB no pain reports during DF and EV review today. Progressed wt shift stride stance rocking hurry cane support front mirror today for review mechanics toe off lacking during gait, improved performance. Pt was able to progress dynamic rocking on tilt board easy no UE support, under instruction tolerated progressed increased angle use of POPEYE today with light rail support pnfree calf stretch and active PF. Physical Therapy Plan Frequency and Duration Frequency of Treatment 2x/Week Duration of treatment (weeks) 12 Plan of Care Start Date 06/28/24 Plan of Care End Date 09/28/23 Therapeutic Interventions Therapeutic Interventions Gait Training,Home Exercise Program,Manual Therapy, Neuromuscular Re-education, Patient/Caregiver Education, Self-Care/Home Management,Soft Tissue Mobilization,Taping, Therapeutic Activities, Therapeutic Exercises Modalities Cold Pack/Ice Massage,Electric Stimulation,Hot Packs, Infrared Therapy,Iontophoresis ,Ultrasound Next Visit Focus/Plan Next Note Type Treatment Note Next Visit Plan Next: response to LEve 3 band HEP, progress gait phases with hurry cane. Trial jasen stepping, shuttle balance, manual talus PA for gait to decreased anterior ankle pain. POC: Modalities and manual therapy to decrease pain and improve mobility of foot and ankle. Consider iontophoresis trial.
--- NOTE | 2024-08-09 16:26 | PT.OTN ---
Current Diagnoses Causalgia of left lower limb (08/09/24) Peroneal tendinitis, left leg (08/09/24) Difficulty in walking, not elsewhere classified (08/09/24) Physical Therapy Treatment Note PT-OP-A Visit Information Start: 06/27/24 15:59 Freq: Status: Active Protocol: Document 08/09/24 15:20 [facility] (Rec: 08/09/24 16:26 [facility] [id number]) Out-Patient Physical Therapy Visit Information Visit Information Visit Type Treatment Note Visit Start Time 15:20 Visit Stop Time 16:10 Visit Number 8/ Number of LIMO DRIVER Visits 0 Evaluation Information Evaluation Date 06/28/24 Precautions Precautions 07/06/24: WBAT LLE, no restrictions. PT-OP-B Current Condition Start: 06/27/24 15:59 Freq: Status: Active Protocol: Document 08/09/24 15:20 [facility] (Rec: 08/09/24 16:26 [facility] [id number]) Current Condition History of Current Condition Onset Date February 24 2024 Current Complaints left ankle pain and weakness History of Current Condition States on 23 of February she did some chores, layed down for a nap, woke up with left ankle throbbing, discolored, swollen , bruise lateral ankle, has persisted. Doctor's initially thought Raynad's at walk in clinic, was sent to ER. x-ray negative, diagnosed with sprain, sent home. MRI showed mild to moderate tendinosis and intrasubstance partial thickness tear peroneus longus extending from level of lateral melleolus tip to distal insertion 1st metatarsal base. Was on Gabapentin for nerve pain due to symptoms of CRPS Currently no meds except Ambien. Also recent surgery for removal of labial cyst. Wearing lace up ankle brace, socks with comopression at arch. No history of sprain or other injury except left knee ligamentous tear thinks medial collarateral. Now doing leg lifts, leg circles, ankle dorsiflexion and pf, ankle circles hurt. Hasn't tried ice or heat. Hasn't seen javascript programmer for 1 1/2 months: PT ordered at that time but initially waited for call from PT clinic, so just starting now. NWB since 23 of February. Only approved previously for ankle df ex by javascript programmer. Inc pain with touch, pressure, weight bearing. Using axillary crutches. Water walking was recommended for patient but she is unable to afford. Prior Treatments and Tests no other, no ice or heat. right calf 32.9cm left 29.5 PT-OP-C Subjective Start: 06/27/24 15:59 Freq: Status: Active Protocol: Document 08/09/24 15:20 [facility] (Rec: 08/09/24 16:26 [facility] [id number]) OP-PT Subjective Patient Comments Patient Comments [place] like she was feeling like she was really progressing then took a fall on Wednesday, tripped over her cane walking down the [address], rolled her ankle and heard a pop from the middle of her foot, some swelling, some increase in pain especially anterior ankle (that is gone today) , not severe. Used crutches NWB yesterday and today until PT, a little better today. Feels very wobbly walking on left foot. Was doing [id number] steps per day prior to fall. Hasn't done any exercises since fall. PT-OP-G Mobility & Gait Start: 06/27/24 15:59 Freq: Status: Active Protocol: Document 06/28/24 09:46 [facility] (Rec: 06/28/24 16:52 [facility] [id number]) OP Gait Assessment Gait Gait Assistance Required: Independent Able to Maintain Weight Bearing Status Yes During Gait Assistive Devices Assistive Device Axillary Crutches Orthotic/Prosthetic Devices or Brace: Yes Factors Limiting Gait Function Factors Limiting Gait Function Pain Comments Gait Comments touch down weight bearing PT-OP-J Posture/Palpation/Skin Start: 06/27/24 15:59 Freq: Status: Active Protocol: Document 06/28/24 09:46 [facility] (Rec: 06/28/24 16:52 [facility] [id number]) Palpation Assessment Location left ankle Palpation Location peronal tendon at lateral malleolus, posterior calf, bottom of michell Palpation Findings Edema,Soft Tissue Tightness, Tenderness PT-OP-K Range of Motion Start: 06/27/24 15:59 Freq: Status: Active Protocol: Document 06/28/24 09:46 [facility] (Rec: 06/28/24 16:52 [facility] [id number]) Ankle and Foot Goniometric Range of Motion Ankle and Foot ROM Limitations Comments see assessment part of note PT-OP-M Strength Start: 06/27/24 15:59 Freq: Status: Active Protocol: Document 06/28/24 09:46 [facility] (Rec: 06/28/24 16:52 [facility] [id number]) Ankle/Foot Strength Ankle and Foot Manual Muscle Testing Left Dorsiflexion (L4) 3- Fair- Plantarflexion (S1) 3+ Fair+ Inversion 3- Fair- Eversion (S1) 3- Fair- Right Dorsiflexion (L4) 5 Normal Plantarflexion (S1) 5 Normal Inversion 5 Normal Eversion (S1) 5 Normal PT-OP-Q Treatments Start: 06/27/24 15:59 Freq: Status: Active Protocol: Document 08/09/24 15:20 [facility] (Rec: 08/09/24 16:26 [facility] [id number]) Cardio Equipment Recumbent Bicycle Duration (Minutes) 10 Resistance 1 Seat Position 5 Gait Training Gait Activity LRAD Device Used 1 hurrycane in RUE Distance/Duration 170 ft around clinic Treatment Focus sequencing AD in 2pt with LLE, WBAT, trunk midline Comments cues for smaller steps, toe off on L Manual Therapy Treatment Soft Tissue Mobilization left calf Body Location gastroc, soleus, achilles, peroneals, plantar fascia Mobilization Type Myofascial Release,Strumming Intensity/Depth gentle Body Position Supine peroneus long Body Location L post lateral malleoli Mobilization Type Cross-Friction Intensity/Depth light Body Position Supine Self-Care/Home Management Treatment Education Other Education gradual resumption of HEP, weight-bearing. Continue icing. PT-OP-R Modalities Start: 06/27/24 15:59 Freq: Status: Active Protocol: Document 08/09/24 15:20 [facility] (Rec: 08/09/24 16:26 [facility] [id number]) Electric Stimulation Electric Stimulation left ankle, peroneus gordy Intensity 11 Target/Sweep Sweep Patient Position Sidelying Combined With Heat/Cold Cold Pack Infrared Treatment Treatment peroneus longus Body Position Sidelying Continuous/Pulsed Continuous Program or Protocal muscle pain and stiffness, chronic Comments 6 locations Iontophoresis Treatment Left Foot Active Electrode Placement lateral foot, peroneus l PT-OP-T Assessment and Plan Start: 06/27/24 15:59 Freq: Status: Active Protocol: Document 08/09/24 15:20 [facility] (Rec: 08/09/24 16:26 [facility] [id number]) Physical Therapy Assessment Impairments Impairments Edema,Gait,Pain,ROM,Strength Goals Three Impairment muscle wasting left calf 2.7 cm smaller than right [employer] Quality Goal (LTG) Normalize muscle tone left calf to within 1 cm of right for improved left LE function LTG Duration 09/28/24 One Impairment lacking full ROM and strength left ankle Short Term Goal (STG) Patient will be instructed in HEP for purposes of left ankle ROM and strength STG Duration 08/11/24 [employer] Quality Goal (LTG) Patient will be independent and compliant with HEP and demonstrate full active ROM of her left ankle and 5/5 muscle strength to allow her to return to prior functional level. LTG Duration 09/28/24 Two Impairment Patient requires the use of crutches for gait and cannot tolerate WBleft LE Short Term Goal (STG) Patient will be able to ambulate with crutches on level surfacewith normal gait pattern without increase in pain STG Duration 08/11/24 [employer] Quality Goal (LTG) Patient will be able to ambulate without assistive device on all usual surfaces without an increase in pain LTG Duration 09/28/24 Assessment Summary Assessment Treatment modified due to patient fall at home. No signs or symptoms of anything more than sprain; no new tenderness, min swelling, no bruising. Did recumbant exercise bike, cold laser, manual, IFES with ice, and trial ionotphoresis with Dexamethasone. Encouraged gradual resumption of weight bearing and HEP as tolerated. Physical Therapy Plan Frequency and Duration Frequency of Treatment 2x/Week Duration of treatment (weeks) 12 Plan of Care Start Date 06/28/24 Plan of Care End Date 09/28/23 Therapeutic Interventions Therapeutic Interventions Gait Training,Home Exercise Program,Manual Therapy, Neuromuscular Re-education, Patient/Caregiver Education, Self-Care/Home Management,Soft Tissue Mobilization,Taping, Therapeutic Activities, Therapeutic Exercises Modalities Cold Pack/Ice Massage,Electric Stimulation,Hot Packs, Infrared Therapy,Iontophoresis ,Ultrasound Next Visit Focus/Plan Next Note Type Treatment Note Next Visit Plan Ther ex and gait training as tolerated , manual therapy and modalities PRN.
--- NOTE | 2024-08-21 11:33 | PT.OTN ---
Current Diagnoses Causalgia of left lower limb (08/21/24) Peroneal tendinitis, left leg (08/21/24) Difficulty in walking, not elsewhere classified (08/21/24) Physical Therapy Treatment Note PT-OP-A Visit Information Start: 06/27/24 15:59 Freq: Status: Active Protocol: Document 08/21/24 10:47 [facility] (Rec: 08/21/24 11:52 [facility] [id number]) Out-Patient Physical Therapy Visit Information Visit Information Visit Type Treatment Note Visit Start Time 10:47 Visit Stop Time 11:33 Visit Number 05/04 Number of LAUNDRY OPERATOR FINISHING Visits 1 Evaluation Information Evaluation Date 06/28/24 Precautions Precautions 07/06/24: WBAT LLE, no restrictions. PT-OP-B Current Condition Start: 06/27/24 15:59 Freq: Status: Active Protocol: Document 08/09/24 15:20 [facility] (Rec: 08/09/24 16:26 [facility] [id number]) Current Condition History of Current Condition Onset Date February 24 2024 Current Complaints left ankle pain and weakness History of Current Condition States on 23 of February she did some chores, layed down for a nap, woke up with left ankle throbbing, discolored, swollen , bruise lateral ankle, has persisted. Doctor's initially thought Raynad's at walk in clinic, was sent to ER. x-ray negative, diagnosed with sprain, sent home. MRI showed mild to moderate tendinosis and intrasubstance partial thickness tear peroneus longus extending from level of lateral melleolus tip to distal insertion 1st metatarsal base. Was on Gabapentin for nerve pain due to symptoms of CRPS Currently no meds except Ambien. Also recent surgery for removal of labial cyst. Wearing lace up ankle brace, socks with comopression at arch. No history of sprain or other injury except left knee ligamentous tear thinks medial collarateral. Now doing leg lifts, leg circles, ankle dorsiflexion and pf, ankle circles hurt. Hasn't tried ice or heat. Hasn't seen automatic casting machine operator for 1 1/2 months: PT ordered at that time but initially waited for call from PT clinic, so just starting now. NWB since 23 of February. Only approved previously for ankle df ex by automatic casting machine operator. Inc pain with touch, pressure, weight bearing. Using axillary crutches. Water walking was recommended for patient but she is unable to afford. Prior Treatments and Tests no other, no ice or heat. right calf 32.9cm left 29.5 PT-OP-C Subjective Start: 06/27/24 15:59 Freq: Status: Active Protocol: Document 08/21/24 10:47 [facility] (Rec: 08/21/24 11:52 [facility] [id number]) OP-PT Subjective Patient Comments Patient Comments Pt reports has been feeling better, able to walk a little without ankle brace on R ankle at home. Pt reports ankle feels more mobile after fall like got loosened up. Not quite back to 3000 steps but so far 1100 steps today using [employer] cane. PT-OP-G Mobility & Gait Start: 06/27/24 15:59 Freq: Status: Active Protocol: Document 06/28/24 09:46 [facility] (Rec: 06/28/24 16:52 [facility] [id number]) OP Gait Assessment Gait Gait Assistance Required: Independent Able to Maintain Weight Bearing Status Yes During Gait Assistive Devices Assistive Device Axillary Crutches Orthotic/Prosthetic Devices or Brace: Yes Factors Limiting Gait Function Factors Limiting Gait Function Pain Comments Gait Comments touch down weight bearing PT-OP-J Posture/Palpation/Skin Start: 06/27/24 15:59 Freq: Status: Active Protocol: Document 06/28/24 09:46 [facility] (Rec: 06/28/24 16:52 [facility] [id number]) Palpation Assessment Location left ankle Palpation Location peronal tendon at lateral malleolus, posterior calf, bottom of michell Palpation Findings Edema,Soft Tissue Tightness, Tenderness PT-OP-K Range of Motion Start: 06/27/24 15:59 Freq: Status: Active Protocol: Document 06/28/24 09:46 [facility] (Rec: 06/28/24 16:52 [facility] [id number]) Ankle and Foot Goniometric Range of Motion Ankle and Foot ROM Limitations Comments see assessment part of note PT-OP-M Strength Start: 06/27/24 15:59 Freq: Status: Active Protocol: Document 06/28/24 09:46 [facility] (Rec: 06/28/24 16:52 [facility] [id number]) Ankle/Foot Strength Ankle and Foot Manual Muscle Testing Left Dorsiflexion (L4) 3- Fair- Plantarflexion (S1) 3+ Fair+ Inversion 3- Fair- Eversion (S1) 3- Fair- Right Dorsiflexion (L4) 5 Normal Plantarflexion (S1) 5 Normal Inversion 5 Normal Eversion (S1) 5 Normal PT-OP-Q Treatments Start: 06/27/24 15:59 Freq: Status: Active Protocol: Document 08/21/24 10:47 [facility] (Rec: 08/21/24 11:52 [facility] [id number]) Cardio Equipment Recumbent Bicycle Duration (Minutes) 10 Resistance 1>5>3 Seat Position 6 (ankle brace doffed) Other tiring in thighs by 6 min lowered to 3 cued ankle mob Gym Equipment Shuttle Balance Red Details f/b/l Comments WBOS, NBOS, stagger : wt shift , HTs Lateral WBOS: wt shift, challenge HTs due to tiring shakiness- no pain, occasional dorsal L ankle tightness. Therapeutic Exercises Sidelying Exercises abduction Sidelying Exercise Name review HEP Side bilateral Resistance TB #3 makah greeb Reps/Minutes 10 reps Comments good form, pnfree Sitting Exercises ankle ev Sitting Exercise Name HEP Side left Resistance TB #3 makah green Reps/Minutes 20 reps Comments pnfree reported, just tiring ankle PF Sitting Exercise Name HEP Resistance TB #3 makah green Reps/Minutes 8 reps Comments shakiness at reps 6 eccentric return- pnfree ankle df Sitting Exercise Name HEP Side left Resistance Tb #3 makah green Reps/Minutes 20 reps Comments pnfree reported, muscle challenge Standing Exercises resisted side stepping Standing Exercise Name added to HEP declined HO Side bilateral Resistance TB #1 at shins Equipment Used good, stable, hip abd tiring, no pain Reps/Minutes 10 ft lateral x3 laps Comments cued head up, DF foot clearance, controlled step return Gait Training Gait Activity LRAD Device Used 1 hurrycane in RUE Level of Assistance S-Mod I Distance/Duration around clinic Treatment Focus heel toe mechanics, improve LLE WB hurry cane as needed Comments cued elongated posturing, TA soft stepping. Manual Therapy Treatment Consent Patient gave verbal consent for manual Yes treatment Soft Tissue Mobilization left calf Body Location gastroc, soleus, achilles, peroneals, plantar fascia Mobilization Type Myofascial Release,Strumming Intensity/Depth gentle Body Position Supine Comments STMs, MWM with DF peroneus long Body Location L post lateral malleoli Mobilization Type Cross-Friction Intensity/Depth light Body Position Supine Comments STMs and MWM ankle eversion Neuro Re-Education Treatment Balance Activities hurdles Details fwd receiprocal, lateral Equipment 6 hurdles, near rail not needed contact Reps/Duration 3 laps each Comments cued soft stepping, even dariela stepping- stable *add foam next tx tiltboard Details weight shift f/b, lateral Equipment tilt board no rail support needed easy, POPEYE light rail contact Reps/Duration 10 reps Comments easy progressed to Shuttle Balance PT-OP-R Modalities Start: 06/27/24 15:59 Freq: Status: Active Protocol: Document 08/09/24 15:20 [facility] (Rec: 08/09/24 16:26 [facility] [id number]) Electric Stimulation Electric Stimulation left ankle, peroneus gordy Intensity 11 Target/Sweep Sweep Patient Position Sidelying Combined With Heat/Cold Cold Pack Infrared Treatment Treatment peroneus longus Body Position Sidelying Continuous/Pulsed Continuous Program or Protocal muscle pain and stiffness, chronic Comments 6 locations Iontophoresis Treatment Left Foot Active Electrode Placement lateral foot, peroneus l PT-OP-T Assessment and Plan Start: 06/27/24 15:59 Freq: Status: Active Protocol: Document 08/21/24 10:47 [facility] (Rec: 08/21/24 11:52 [facility] [id number]) Physical Therapy Assessment Goals Three Impairment muscle wasting left calf 2.7 cm smaller than right [place] Guide Goal (LTG) Normalize muscle tone left calf to within 1 cm of right for improved left LE function LTG Duration 09/28/24 One Impairment lacking full ROM and strength left ankle Short Term Goal (STG) Patient will be instructed in HEP for purposes of left ankle ROM and strength STG Duration 08/11/24 [place] Guide Goal (LTG) Patient will be independent and compliant with HEP and demonstrate full active ROM of her left ankle and 5/5 muscle strength to allow her to return to prior functional level. LTG Duration 09/28/24 Two Impairment Patient requires the use of crutches for gait and cannot tolerate WBleft LE Short Term Goal (STG) Patient will be able to ambulate with crutches on level surfacewith normal gait pattern without increase in pain STG Duration 08/11/24 Skilled Nursing Goal (LTG) Patient will be able to ambulate without assistive device on all usual surfaces without an increase in pain LTG Duration 09/28/24 Assessment Summary Assessment Pt improved WB this tx, cues throughout tx for L ankle mobility on bike and walking SPC>no AD short distances. Improved hip abd strengthening added resisted side stepping with cues for DF ecc/PF stepping good stability. Cued softer stepping during hurdles , CGA>SBA receiprocal stepping . Little shakiness lateral shuttle balance, peformed after ther ex so quad/glut tiring, good fwd, bwd and dynamic head turns. Pt reports little dorsal L ankle discomfort end tx- all activity performed without ankle brace donned. Cues ed for during mobiltiy allow opportunity eccentric DF with verbal understanding fwd, lateral especially. Physical Therapy Plan Frequency and Duration Frequency of Treatment 2x/Week Duration of treatment (weeks) 12 Plan of Care Start Date 06/28/24 Plan of Care End Date 09/28/23 Therapeutic Interventions Therapeutic Interventions Gait Training,Home Exercise Program,Manual Therapy, Neuromuscular Re-education, Patient/Caregiver Education, Self-Care/Home Management,Soft Tissue Mobilization,Taping, Therapeutic Activities, Therapeutic Exercises Modalities Cold Pack/Ice Massage,Electric Stimulation,Hot Packs, Infrared Therapy,Iontophoresis ,Ultrasound Next Visit Focus/Plan Next Note Type Treatment Note Next Visit Plan Check added more appts, and review uneven hurdles, balance , add uneven surface activities. Progress PF as tolerated. POC: Ther ex and gait training as tolerated , manual therapy and modalities PRN.
--- NOTE | 2024-08-28 13:48 | PT.OTN ---
Current Diagnoses Causalgia of left lower limb (08/28/24) Peroneal tendinitis, left leg (08/28/24) Difficulty in walking, not elsewhere classified (08/28/24) Physical Therapy Treatment Note PT-OP-A Visit Information Start: 06/27/24 15:59 Freq: Status: Active Protocol: Document 08/28/24 13:02 SP (Rec: 08/28/24 13:52 SP [id number]) Out-Patient Physical Therapy Visit Information Visit Information Visit Type Treatment Note Visit Note 2024: 09/03 approved Visit Start Time 13:02 Visit Stop Time 13:48 Visit Number 10 (09/03 approved visits) Number of EMERGENCY SPILL RESPONSE TECHNICIAN Visits 2 Evaluation Information Evaluation Date 06/28/24 Precautions Precautions 07/06/24: WBAT LLE, no restrictions. PT-OP-B Current Condition Start: 06/27/24 15:59 Freq: Status: Active Protocol: Document 08/09/24 15:20 SAK (Rec: 08/09/24 16:26 SAK [id number]) Current Condition History of Current Condition Onset Date February 24 2024 Current Complaints left ankle pain and weakness History of Current Condition States on 23 of February she did some chores, layed down for a nap, woke up with left ankle throbbing, discolored, swollen , bruise lateral ankle, has persisted. Doctor's initially thought Raynad's at walk in clinic, was sent to ER. x-ray negative, diagnosed with sprain, sent home. MRI showed mild to moderate tendinosis and intrasubstance partial thickness tear peroneus longus extending from level of lateral melleolus tip to distal insertion 1st metatarsal base. Was on Gabapentin for nerve pain due to symptoms of CRPS Currently no meds except Ambien. Also recent surgery for removal of labial cyst. Wearing lace up ankle brace, socks with comopression at arch. No history of sprain or other injury except left knee ligamentous tear thinks medial collarateral. Now doing leg lifts, leg circles, ankle dorsiflexion and pf, ankle circles hurt. Hasn't tried ice or heat. Hasn't seen arcade technician for 1 1/2 months: PT ordered at that time but initially waited for call from PT clinic, so just starting now. NWB since 23 of February. Only approved previously for ankle df ex by arcade technician. Inc pain with touch, pressure, weight bearing. Using axillary crutches. Water walking was recommended for patient but she is unable to afford. Prior Treatments and Tests no other, no ice or heat. right calf 32.9cm left 29.5 PT-OP-C Subjective Start: 06/27/24 15:59 Freq: Status: Active Protocol: Document 08/28/24 13:02 SP (Rec: 08/28/24 13:52 SP [id number]) OP-PT Subjective Patient Comments Patient Comments Pt reports ankle feeling stronger, needs stronger band for ankle exercises. Has been compliant with new standing exercises. PT-OP-G Mobility & Gait Start: 06/27/24 15:59 Freq: Status: Active Protocol: Document 06/28/24 09:46 [facility] (Rec: 06/28/24 16:52 [facility] [id number]) OP Gait Assessment Gait Gait Assistance Required: Independent Able to Maintain Weight Bearing Status Yes During Gait Assistive Devices Assistive Device Axillary Crutches Orthotic/Prosthetic Devices or Brace: Yes Factors Limiting Gait Function Factors Limiting Gait Function Pain Comments Gait Comments touch down weight bearing PT-OP-J Posture/Palpation/Skin Start: 06/27/24 15:59 Freq: Status: Active Protocol: Document 06/28/24 09:46 [facility] (Rec: 06/28/24 16:52 [facility] [id number]) Palpation Assessment Location left ankle Palpation Location peronal tendon at lateral malleolus, posterior calf, bottom of michell Palpation Findings Edema,Soft Tissue Tightness, Tenderness PT-OP-K Range of Motion Start: 06/27/24 15:59 Freq: Status: Active Protocol: Document 06/28/24 09:46 [facility] (Rec: 06/28/24 16:52 [facility] [id number]) Ankle and Foot Goniometric Range of Motion Ankle and Foot ROM Limitations Comments see assessment part of note PT-OP-M Strength Start: 06/27/24 15:59 Freq: Status: Active Protocol: Document 06/28/24 09:46 [facility] (Rec: 06/28/24 16:52 [facility] [id number]) Ankle/Foot Strength Ankle and Foot Manual Muscle Testing Left Dorsiflexion (L4) 3- Fair- Plantarflexion (S1) 3+ Fair+ Inversion 3- Fair- Eversion (S1) 3- Fair- Right Dorsiflexion (L4) 5 Normal Plantarflexion (S1) 5 Normal Inversion 5 Normal Eversion (S1) 5 Normal PT-OP-Q Treatments Start: 06/27/24 15:59 Freq: Status: Active Protocol: Document 08/28/24 13:02 SP (Rec: 08/28/24 13:52 SP [id number]) Cardio Equipment Recumbent Bicycle Duration (Minutes) 8 Resistance 5>4 last 2 min Seat Position 6 (ankle brace doffed) Other cued ankle motion, felt 1 crackle which helped ankle movement relief Therapeutic Exercises Sitting Exercises ankle ev Sitting Exercise Name HEP Side left Resistance TB #3>#4 Reps/Minutes 10 reps Comments pnfree reported, just tiring ankle inv Sitting Exercise Name HEP Side left Resistance Tb #4 Reps/Minutes 10 reps ankle PF Sitting Exercise Name HEP Resistance TB #3>4 Reps/Minutes 10 Comments slight eccentric shakiness/ weakness- pnfree ankle df Sitting Exercise Name HEP Side left Resistance Tb #3>4 Reps/Minutes 10 reps Comments good form Standing Exercises SLS slider Standing Exercise Name discussed not performed- verbal understood Comments recheck next tx, add HO if needed resisted side stepping Standing Exercise Name Reviewed HEP: f/b/lateral Side bilateral Resistance TB #1> #2 teal at shins Equipment Used good, stable, hip abd tiring, no pain Reps/Minutes 10 ft lateral x3 laps Comments cued head up, good form thereafter calf raises Standing Exercise Name trialed in PT: eccentric and concentric heel raises bottom step Equipment Used POPEYE pf/df, rail support Reps/Minutes x12 reps Comments cued raise lower painfree range, low reps for benefits effort not pain. calf stretch Standing Exercise Name gastroc & soleus Side left Equipment Used POPEYE, rail support Reps/Minutes 20 SH Comments cued upright posture, gentle range hernan- no pain gentle stretch Manual Therapy Treatment Consent Patient gave verbal consent for manual Yes treatment Soft Tissue Mobilization left calf Body Location gastroc, soleus, achilles Mobilization Type Myofascial Release,Strumming Intensity/Depth gentle Body Position Supine Comments STMs, MWM with DF Ed self STM anchilles STMs, MWM ankle PF/DF Joint Mobilizations L ankle Joint talocrual PA, MTP gross med/ lat, MTP PA Comments gentle/ light PROM Neuro Re-Education Treatment Balance Activities SLS Details LLE 3-4 sec floor, RLE foam 15 sec foam stand Details EO ball throw/catch /c PT Aide Equipment tandem stance Reps/Duration 1 min Comments cues even BUE WB PT-OP-R Modalities Start: 06/27/24 15:59 Freq: Status: Active Protocol: Document 08/09/24 15:20 SAK (Rec: 08/09/24 16:26 SAK [id number]) Electric Stimulation Electric Stimulation left ankle, peroneus gordy Intensity 11 Target/Sweep Sweep Patient Position Sidelying Combined With Heat/Cold Cold Pack Infrared Treatment Treatment peroneus longus Body Position Sidelying Continuous/Pulsed Continuous Program or Protocal muscle pain and stiffness, chronic Comments 6 locations Iontophoresis Treatment Left Foot Active Electrode Placement lateral foot, peroneus l PT-OP-T Assessment and Plan Start: 06/27/24 15:59 Freq: Status: Active Protocol: Document 08/28/24 13:02 SP (Rec: 08/28/24 13:52 SP [id number]) Physical Therapy Assessment Goals Three Impairment muscle wasting left calf 2.7 cm smaller than right Theatrical Agent Goal (LTG) Normalize muscle tone left calf to within 1 cm of right for improved left LE function LTG Duration 09/28/24 One Impairment lacking full ROM and strength left ankle Short Term Goal (STG) Patient will be instructed in HEP for purposes of left ankle ROM and strength STG Duration 08/11/24 Theatrical Agent Goal (LTG) Patient will be independent and compliant with HEP and demonstrate full active ROM of her left ankle and 5/5 muscle strength to allow her to return to prior functional level. LTG Duration 09/28/24 Two Impairment Patient requires the use of crutches for gait and cannot tolerate WBleft LE Short Term Goal (STG) Patient will be able to ambulate with crutches on level surfacewith normal gait pattern without increase in pain 08/28/24: GOAL MET: using SPC STG Duration 08/11/24 GOAL MET 08/28/24 Theatrical Agent Goal (LTG) Patient will be able to ambulate without assistive device on all usual surfaces without an increase in pain LTG Duration 09/28/24 Assessment Summary Assessment Pt good tolerance increased resistance for carryover seated and stand side stepping ankle HEP today. Progressed weight bearing PF /DF over POPEYE today UE supported for calf strengthening, no level to no pain reported. Discussed end tx SL stance star gliders counter contact, will initiated next tx. Physical Therapy Plan Frequency and Duration Frequency of Treatment 2x/Week Duration of treatment (weeks) 12 Plan of Care Start Date 06/28/24 Plan of Care End Date 09/28/23 Therapeutic Interventions Therapeutic Interventions Gait Training,Home Exercise Program,Manual Therapy, Neuromuscular Re-education, Patient/Caregiver Education, Self-Care/Home Management,Soft Tissue Mobilization,Taping, Therapeutic Activities, Therapeutic Exercises Modalities Cold Pack/Ice Massage,Electric Stimulation,Hot Packs, Infrared Therapy,Iontophoresis ,Ultrasound Next Visit Focus/Plan Next Note Type Treatment Note Next Visit Plan Check added more appts, and review uneven hurdles, balance , add uneven surface activities. Progress PF as tolerated. REview/add SLS star gliders, SLS uneven if tolerated progression, maybe add lunges. POC: Ther ex and gait training as tolerated , manual therapy and modalities PRN.
--- NOTE | 2024-09-04 11:27 | PT.OTN ---
Current Diagnoses Causalgia of left lower limb (09/04/24) Peroneal tendinitis, left leg (09/04/24) Difficulty in walking, not elsewhere classified (09/04/24) Physical Therapy Treatment Note PT-OP-A Visit Information Start: 06/27/24 15:59 Freq: Status: Active Protocol: Document 09/04/24 08:12 [facility] (Rec: 09/04/24 09:02 [facility] [id number]) Out-Patient Physical Therapy Visit Information Visit Information Visit Type Treatment Note Visit Note 2024: 09/03 approved Visit Start Time 08:13 Visit Stop Time 08:58 Visit Number 11 (10/04 approved visits) Number of MANAGER OPERATIONS RESEARCH Visits 0 Evaluation Information Evaluation Date 06/28/24 Precautions Precautions 07/06/24: WBAT LLE, no restrictions. PT-OP-B Current Condition Start: 06/27/24 15:59 Freq: Status: Active Protocol: Document 09/04/24 08:12 [facility] (Rec: 09/04/24 09:02 [facility] [id number]) Current Condition History of Current Condition Onset Date February 24 2024 Current Complaints left ankle pain and weakness History of Current Condition States on 23 of February she did some chores, layed down for a nap, woke up with left ankle throbbing, discolored, swollen , bruise lateral ankle, has persisted. Doctor's initially thought Raynad's at walk in clinic, was sent to ER. x-ray negative, diagnosed with sprain, sent home. MRI showed mild to moderate tendinosis and intrasubstance partial thickness tear peroneus longus extending from level of lateral melleolus tip to distal insertion 1st metatarsal base. Was on Gabapentin for nerve pain due to symptoms of CRPS Currently no meds except Ambien. Also recent surgery for removal of labial cyst. Wearing lace up ankle brace, socks with comopression at arch. No history of sprain or other injury except left knee ligamentous tear thinks medial collarateral. Now doing leg lifts, leg circles, ankle dorsiflexion and pf, ankle circles hurt. Hasn't tried ice or heat. Hasn't seen acid wash operator for 1 1/2 months: PT ordered at that time but initially waited for call from PT clinic, so just starting now. NWB since 23 of February. Only approved previously for ankle df ex by acid wash operator. Inc pain with touch, pressure, weight bearing. Using axillary crutches. Water walking was recommended for patient but she is unable to afford. Prior Treatments and Tests no other, no ice or heat. right calf 32.9cm left 29.5 PT-OP-C Subjective Start: 06/27/24 15:59 Freq: Status: Active Protocol: Document 09/04/24 08:12 [facility] (Rec: 09/04/24 09:02 [facility] [id number]) OP-PT Subjective Patient Comments Patient Comments reports fatigue. No problems with increase to level 4 TB. Less pain, less icing. 4200 steps 11th, 3800 10th. Workday around 15,000. Muscle soreness in calves after PT. Challenged walking on uneven ground PT-OP-G Mobility & Gait Start: 06/27/24 15:59 Freq: Status: Active Protocol: Document 06/28/24 09:46 [facility] (Rec: 06/28/24 16:52 [facility] [id number]) OP Gait Assessment Gait Gait Assistance Required: Independent Able to Maintain Weight Bearing Status Yes During Gait Assistive Devices Assistive Device Axillary Crutches Orthotic/Prosthetic Devices or Brace: Yes Factors Limiting Gait Function Factors Limiting Gait Function Pain Comments Gait Comments touch down weight bearing PT-OP-J Posture/Palpation/Skin Start: 06/27/24 15:59 Freq: Status: Active Protocol: Document 06/28/24 09:46 [facility] (Rec: 06/28/24 16:52 [facility] [id number]) Palpation Assessment Location left ankle Palpation Location peronal tendon at lateral malleolus, posterior calf, bottom of michell Palpation Findings Edema,Soft Tissue Tightness, Tenderness PT-OP-K Range of Motion Start: 06/27/24 15:59 Freq: Status: Active Protocol: Document 06/28/24 09:46 [facility] (Rec: 06/28/24 16:52 [facility] [id number]) Ankle and Foot Goniometric Range of Motion Ankle and Foot ROM Limitations Comments see assessment part of note PT-OP-M Strength Start: 06/27/24 15:59 Freq: Status: Active Protocol: Document 06/28/24 09:46 [facility] (Rec: 06/28/24 16:52 [facility] [id number]) Ankle/Foot Strength Ankle and Foot Manual Muscle Testing Left Dorsiflexion (L4) 3- Fair- Plantarflexion (S1) 3+ Fair+ Inversion 3- Fair- Eversion (S1) 3- Fair- Right Dorsiflexion (L4) 5 Normal Plantarflexion (S1) 5 Normal Inversion 5 Normal Eversion (S1) 5 Normal PT-OP-Q Treatments Start: 06/27/24 15:59 Freq: Status: Active Protocol: Document 09/04/24 08:12 [facility] (Rec: 09/04/24 09:02 [facility] [id number]) Cardio Equipment Recumbent Bicycle Duration (Minutes) 10 Resistance 5>4 last 2 min Seat Position 6 (ankle brace donned) Other cued ankle motion, felt 1 crackle which helped ankle movement relief Therapeutic Exercises Sitting Exercises ankle ev Sitting Exercise Name HEP ankle inv Sitting Exercise Name HEP ankle PF Sitting Exercise Name HEP ankle df Sitting Exercise Name HEP Standing Exercises SLS slider Side bilateral Equipment Used slider Reps/Minutes 1 min x 2 ea side Comments no brace resisted side stepping Standing Exercise Name Reviewed HEP: f/b/lateral Side bilateral Resistance TB #2 teal at shins Equipment Used good, stable, hip abd tiring, no pain Reps/Minutes 10 ft lateral x3 laps Comments cued head up, good form thereafter calf raises Standing Exercise Name eccentric and concentric heel raises bottom step Equipment Used POPEYE pf/df, rail support Reps/Minutes x12 reps Comments cued raise lower painfree range, low reps for benefits effort not pain. calf stretch Standing Exercise Name gastroc & soleus Side left Equipment Used POPEYE, rail support Reps/Minutes 20 SH Comments cued upright posture, gentle range hernan- no pain gentle stretch Gait Training Gait Activity LRAD Device Used none, wearing ankle brace. Level of Assistance S-Mod I Distance/Duration around clinic Treatment Focus heel toe mechanics, improve LLE WB hurry cane as needed Comments cued elongated posturing, TA soft stepping. 2 Description walk with no brace Device Used parallel bars Level of Assistance SBA, cues Surface firm Treatment Focus control, no pain Comments fwd/bck, side, slow october, grapevine parallel bars PRN Manual Therapy Treatment Soft Tissue Mobilization left calf Body Location gastroc, soleus, achilles Mobilization Type Myofascial Release,Strumming Intensity/Depth Moderate Body Position Prone Comments STMs, MWM with DF peroneus long Body Location L post lateral malleoli Mobilization Type Cross-Friction Intensity/Depth Moderate Body Position Prone Comments STMs and MWM ankle eversion Neuro Re-Education Treatment Balance Activities tandem stand Details EO and EC Surface black foam grapevine Surface firm Equipment parallel bars PRN (not used) march Details slow Surface firm Equipment prallel bars PRN foam stand Details EO ball throw/catch /c PT Aide Equipment tandem stance Reps/Duration 1 min Comments cues even BUE WB PT-OP-R Modalities Start: 06/27/24 15:59 Freq: Status: Active Protocol: Document 08/09/24 15:20 [facility] (Rec: 08/09/24 16:26 [facility] [id number]) Electric Stimulation Electric Stimulation left ankle, peroneus gordy Intensity 11 Target/Sweep Sweep Patient Position Sidelying Combined With Heat/Cold Cold Pack Infrared Treatment Treatment peroneus longus Body Position Sidelying Continuous/Pulsed Continuous Program or Protocal muscle pain and stiffness, chronic Comments 6 locations Iontophoresis Treatment Left Foot Active Electrode Placement lateral foot, peroneus l PT-OP-T Assessment and Plan Start: 06/27/24 15:59 Freq: Status: Active Protocol: Document 09/04/24 08:12 [facility] (Rec: 09/04/24 09:02 [facility] [id number]) Physical Therapy Assessment Goals Three Impairment muscle wasting left calf 2.7 cm smaller than right Molder Pipe Covering Goal (LTG) Normalize muscle tone left calf to within 1 cm of right for improved left LE function 09/04/24: right calf 3 cm larger, no progress LTG Duration 09/28/24 One Impairment lacking full ROM and strength left ankle Short Term Goal (STG) Patient will be instructed in HEP for purposes of left ankle ROM and strength 09/04/24: goal met, ongoing progression STG Duration goal met Molder Pipe Covering Goal (LTG) Patient will be independent and compliant with HEP and demonstrate full active ROM of her left ankle and 5/5 muscle strength to allow her to return to prior functional level. 09/04/24: strength 4/5 df and inv, 4-/5 pf and eversion LTG Duration 09/28/24 Two Impairment Patient requires the use of crutches for gait and cannot tolerate WBleft LE Short Term Goal (STG) Patient will be able to ambulate with crutches on level surfacewith normal gait pattern without increase in pain 08/28/24: GOAL MET: using SPC STG Duration 08/11/24 GOAL MET 08/28/24 Skilled Nursing Goal (LTG) Patient will be able to ambulate without assistive device on all usual surfaces without an increase in pain LTG Duration 09/28/24 Progress Towards Goals Progress Towards Goals Progressing Toward Goals Assessment Summary Assessment Patient exhibiting improvement in MMT ankle today but still significant atrophy left calf. Has walked max 4200 steps in a day, reports 15,000 typical for work day. Able to progress ex and gait, some without brace in parallel bars min UE support. Dec balance on left leg. Patient fearful of re-injuring. Continues to use cane in community, able to walk 200 ft today with brace only, no cane, with mild limp though reported no pain. Physical Therapy Plan Frequency and Duration Frequency of Treatment 2x/Week Duration of treatment (weeks) 12 Plan of Care Start Date 06/28/24 Plan of Care End Date 09/28/23 Therapeutic Interventions Therapeutic Interventions Gait Training,Home Exercise Program,Manual Therapy, Neuromuscular Re-education, Patient/Caregiver Education, Self-Care/Home Management,Soft Tissue Mobilization,Taping, Therapeutic Activities, Therapeutic Exercises Modalities Cold Pack/Ice Massage,Electric Stimulation,Hot Packs, Infrared Therapy,Iontophoresis ,Ultrasound Next Visit Focus/Plan Next Note Type Treatment Note Next Visit Plan Assess response to today's session with closed chain ex without brace parallel bars with inc challenge. Continue to progress with strengthening , gait, balance/neuro re-ed. Add lunges
--- NOTE | 2024-09-13 16:24 | PT.OTN ---
Current Diagnoses Causalgia of left lower limb (09/13/24) Peroneal tendinitis, left leg (09/13/24) Difficulty in walking, not elsewhere classified (09/13/24) Physical Therapy Treatment Note PT-OP-A Visit Information Start: 06/27/24 15:59 Freq: Status: Active Protocol: Document 09/13/24 15:14 [facility] (Rec: 09/13/24 16:24 [facility] [id number]) Out-Patient Physical Therapy Visit Information Visit Information Visit Type Treatment Note Visit Note 2024: 11/01 approved Visit Start Time 15:14 Visit Stop Time 16:04 Visit Number 12 (11/01 approved visits) Number of CERTIFIED MASTER LOCKSMITH Visits 0 Evaluation Information Evaluation Date 06/28/24 Precautions Precautions 07/06/24: WBAT LLE, no restrictions. PT-OP-B Current Condition Start: 06/27/24 15:59 Freq: Status: Active Protocol: Document 09/13/24 15:14 [facility] (Rec: 09/13/24 16:24 [facility] [id number]) Current Condition History of Current Condition Onset Date February 24 2024 Current Complaints left ankle pain and weakness History of Current Condition States on 23 of February she did some chores, layed down for a nap, woke up with left ankle throbbing, discolored, swollen , bruise lateral ankle, has persisted. Doctor's initially thought Raynad's at walk in clinic, was sent to ER. x-ray negative, diagnosed with sprain, sent home. MRI showed mild to moderate tendinosis and intrasubstance partial thickness tear peroneus longus extending from level of lateral melleolus tip to distal insertion 1st metatarsal base. Was on Gabapentin for nerve pain due to symptoms of CRPS Currently no meds except Ambien. Also recent surgery for removal of labial cyst. Wearing lace up ankle brace, socks with comopression at arch. No history of sprain or other injury except left knee ligamentous tear thinks medial collarateral. Now doing leg lifts, leg circles, ankle dorsiflexion and pf, ankle circles hurt. Hasn't tried ice or heat. Hasn't seen hydraulic specialist for 1 1/2 months: PT ordered at that time but initially waited for call from PT clinic, so just starting now. NWB since 23 of February. Only approved previously for ankle df ex by hydraulic specialist. Inc pain with touch, pressure, weight bearing. Using axillary crutches. Water walking was recommended for patient but she is unable to afford. Prior Treatments and Tests no other, no ice or heat. right calf 32.9cm left 29.5 PT-OP-C Subjective Start: 06/27/24 15:59 Freq: Status: Active Protocol: Document 09/13/24 15:14 [facility] (Rec: 09/13/24 16:24 [facility] [id number]) OP-PT Subjective Patient Comments Patient Comments Average of 3000 steps per day. Still a bit of limp, using cane only outdoors. Only pain if barefoot, then pain achilles. Had MRI yesterday, sees hydraulic specialist tomorrow. Got up to 6000 steps last Wednesday. PT-OP-G Mobility & Gait Start: 06/27/24 15:59 Freq: Status: Active Protocol: Document 06/28/24 09:46 [facility] (Rec: 06/28/24 16:52 [facility] [id number]) OP Gait Assessment Gait Gait Assistance Required: Independent Able to Maintain Weight Bearing Status Yes During Gait Assistive Devices Assistive Device Axillary Crutches Orthotic/Prosthetic Devices or Brace: Yes Factors Limiting Gait Function Factors Limiting Gait Function Pain Comments Gait Comments touch down weight bearing PT-OP-J Posture/Palpation/Skin Start: 06/27/24 15:59 Freq: Status: Active Protocol: Document 06/28/24 09:46 [facility] (Rec: 06/28/24 16:52 [facility] [id number]) Palpation Assessment Location left ankle Palpation Location peronal tendon at lateral malleolus, posterior calf, bottom of michell Palpation Findings Edema,Soft Tissue Tightness, Tenderness PT-OP-K Range of Motion Start: 06/27/24 15:59 Freq: Status: Active Protocol: Document 06/28/24 09:46 [facility] (Rec: 06/28/24 16:52 [facility] [id number]) Ankle and Foot Goniometric Range of Motion Ankle and Foot ROM Limitations Comments see assessment part of note PT-OP-M Strength Start: 06/27/24 15:59 Freq: Status: Active Protocol: Document 06/28/24 09:46 [facility] (Rec: 06/28/24 16:52 [facility] [id number]) Ankle/Foot Strength Ankle and Foot Manual Muscle Testing Left Dorsiflexion (L4) 3- Fair- Plantarflexion (S1) 3+ Fair+ Inversion 3- Fair- Eversion (S1) 3- Fair- Right Dorsiflexion (L4) 5 Normal Plantarflexion (S1) 5 Normal Inversion 5 Normal Eversion (S1) 5 Normal PT-OP-Q Treatments Start: 06/27/24 15:59 Freq: Status: Active Protocol: Document 09/13/24 15:14 [facility] (Rec: 09/13/24 16:24 [facility] [id number]) Cardio Equipment Recumbent Bicycle Duration (Minutes) 10 Resistance 5 Seat Position 6 (no brace) Treadmill Duration (Minutes) 5 Speed 0.8 Incline 0 Other cues for equal step length, no knee hyperextension, equal stance time. Gym Equipment Shuttle Recovery Unilateral Heel Raises Reps/Time not ready Bilateral Heel Raises Resistance 12# Reps/Time 7x, then some ankle discomfort Unilateral Squats Resistance 25 R, 12 L Bilateral Squats Resistance 37 Shuttle Recovery Platform Stable Reps/Time 10x Sport Cord yellow cord Exercise Details fwd/bck/side Cord/Resistance yellow Therapeutic Exercises Supine Exercises HC stretch Supine Exercise Name HEP SLR Supine Exercise Name HEP Prone Exercises hip ext Prone Exercise Name HEP Sidelying Exercises abduction Sidelying Exercise Name HEP Sitting Exercises mini squat Sitting Exercise Name HEP toe abduction Sitting Exercise Name HEP LAQ Sitting Exercise Name HEP towel scrunch Sitting Exercise Name HEP ankle ev Sitting Exercise Name HEP ankle inv Sitting Exercise Name HEP ankle PF Sitting Exercise Name HEP ankle df Sitting Exercise Name HEP Standing Exercises SLS slider Side bilateral Equipment Used slider Reps/Minutes 1 min x 2 ea side Comments no brace calf raises Comments next session again instead of shuttle recovery ankle mobility Standing Exercise Name HEP calf stretch Standing Exercise Name gastroc & soleus Side left Equipment Used POPEYE, rail support Reps/Minutes 20 SH Comments cued upright posture, gentle range hernan- no pain gentle stretch Gait Training Gait Activity LRAD Device Used none no brace Level of Assistance S-Mod I Distance/Duration around clinic Treatment Focus heel toe mechanics, improve LLE WB hurry cane as needed Comments cued elongated posturing, TA soft stepping. Manual Therapy Treatment Soft Tissue Mobilization left calf Body Location gastroc, soleus, achilles Mobilization Type Myofascial Release,Strumming Intensity/Depth Moderate Body Position Prone Comments STMs, MWM with DF peroneus long Body Location L post lateral malleoli Mobilization Type Cross-Friction Intensity/Depth Moderate Body Position Prone Comments STMs and MWM ankle eversion PT-OP-R Modalities Start: 06/27/24 15:59 Freq: Status: Active Protocol: Document 09/13/24 15:14 [facility] (Rec: 09/13/24 16:24 [facility] [id number]) Infrared Treatment Treatment peroneus longus Dosage (Joules) 58 Body Position Sidelying Continuous/Pulsed Continuous Program or Protocal muscle pain and stiffness, chronic Comments 6 locations peroneus longus and achilles PT-OP-T Assessment and Plan Start: 06/27/24 15:59 Freq: Status: Active Protocol: Document 09/13/24 15:14 [facility] (Rec: 09/13/24 16:24 [facility] [id number]) Physical Therapy Assessment Goals Three Impairment muscle wasting left calf 2.7 cm smaller than right Senior Living Goal (LTG) Normalize muscle tone left calf to within 1 cm of right for improved left LE function 09/04/24: right calf 3 cm larger, no progress LTG Duration 09/28/24 One Impairment lacking full ROM and strength left ankle Short Term Goal (STG) Patient will be instructed in HEP for purposes of left ankle ROM and strength 09/04/24: goal met, ongoing progression STG Duration goal met Senior Living Goal (LTG) Patient will be independent and compliant with HEP and demonstrate full active ROM of her left ankle and 5/5 muscle strength to allow her to return to prior functional level. 09/04/24: strength 4/5 df and inv, 4-/5 pf and eversion LTG Duration 09/28/24 Two Impairment Patient requires the use of crutches for gait and cannot tolerate WBleft LE Short Term Goal (STG) Patient will be able to ambulate with crutches on level surfacewith normal gait pattern without increase in pain 08/28/24: GOAL MET: using SPC STG Duration 08/11/24 GOAL MET 08/28/24 Senior Living Goal (LTG) Patient will be able to ambulate without assistive device on all usual surfaces without an increase in pain LTG Duration 09/28/24 Progress Towards Goals Progress Towards Goals Progressing Toward Goals Assessment Summary Assessment Improving exercise tolerance, pain minimal unless walks barefoot. Trial sport cord with good tolerance, no brace. Also treadmill 0.8 mph min UE support good tolerance. Trial shuttle leg press able vivian and unil squat (less on L) , and vivian heel raises but with some discomfort left ankle by rep7. Physical Therapy Plan Frequency and Duration Frequency of Treatment 2x/Week Duration of treatment (weeks) 12 Plan of Care Start Date 06/28/24 Plan of Care End Date 09/28/23 Therapeutic Interventions Therapeutic Interventions Gait Training,Home Exercise Program,Manual Therapy, Neuromuscular Re-education, Patient/Caregiver Education, Self-Care/Home Management,Soft Tissue Mobilization,Taping, Therapeutic Activities, Therapeutic Exercises Modalities Cold Pack/Ice Massage,Electric Stimulation,Hot Packs, Infrared Therapy,Iontophoresis ,Ultrasound Next Visit Focus/Plan Next Note Type Treatment Note Next Visit Plan Discuss results of new MRI, recommendations from hydraulic specialist. Continue to progress with strengthening, gait, balance.
--- NOTE | 2024-09-20 09:08 | PT.OTN ---
Current Diagnoses Causalgia of left lower limb (09/20/24) Peroneal tendinitis, left leg (09/20/24) Difficulty in walking, not elsewhere classified (09/20/24) Physical Therapy Treatment Note PT-OP-A Visit Information Start: 06/27/24 15:59 Freq: Status: Active Protocol: Document 09/20/24 08:22 [facility] (Rec: 09/20/24 09:05 [facility] [id number]) Out-Patient Physical Therapy Visit Information Visit Information Visit Type Treatment Note Visit Start Time 08:22 Visit Stop Time 09:08 Visit Number 13 (12/02 approved visits 2024) Number of PRECISION HONING MACHINE OPERATOR Visits 1 Evaluation Information Evaluation Date 06/28/24 Precautions Precautions 07/06/24: WBAT LLE, no restrictions. PT-OP-B Current Condition Start: 06/27/24 15:59 Freq: Status: Active Protocol: Document 09/13/24 15:14 [facility] (Rec: 09/13/24 16:24 [facility] [id number]) Current Condition History of Current Condition Onset Date February 24 2024 Current Complaints left ankle pain and weakness History of Current Condition States on 23 of February she did some chores, layed down for a nap, woke up with left ankle throbbing, discolored, swollen , bruise lateral ankle, has persisted. Doctor's initially thought Raynad's at walk in clinic, was sent to ER. x-ray negative, diagnosed with sprain, sent home. MRI showed mild to moderate tendinosis and intrasubstance partial thickness tear peroneus longus extending from level of lateral melleolus tip to distal insertion 1st metatarsal base. Was on Gabapentin for nerve pain due to symptoms of CRPS Currently no meds except Ambien. Also recent surgery for removal of labial cyst. Wearing lace up ankle brace, socks with comopression at arch. No history of sprain or other injury except left knee ligamentous tear thinks medial collarateral. Now doing leg lifts, leg circles, ankle dorsiflexion and pf, ankle circles hurt. Hasn't tried ice or heat. Hasn't seen commissary assistant for 1 1/2 months: PT ordered at that time but initially waited for call from PT clinic, so just starting now. NWB since 23 of February. Only approved previously for ankle df ex by commissary assistant. Inc pain with touch, pressure, weight bearing. Using axillary crutches. Water walking was recommended for patient but she is unable to afford. Prior Treatments and Tests no other, no ice or heat. right calf 32.9cm left 29.5 PT-OP-C Subjective Start: 06/27/24 15:59 Freq: Status: Active Protocol: Document 09/20/24 08:22 SP (Rec: 09/20/24 09:05 SP [id number]) OP-PT Subjective Patient Comments Patient Comments Pt reports saw Web Production Assistant and MRI showing achilles ok but nerve fibers fractured like have nerve attack like foot having a panic attack. He wants her to continue with PT and will write what needed to continue progressing back to PLOF. She reports was really sore after last tx pain in foot and knee rest of day, CP helped calm pain down. PT-OP-G Mobility & Gait Start: 06/27/24 15:59 Freq: Status: Active Protocol: Document 06/28/24 09:46 [facility] (Rec: 06/28/24 16:52 [facility] [id number]) OP Gait Assessment Gait Gait Assistance Required: Independent Able to Maintain Weight Bearing Status Yes During Gait Assistive Devices Assistive Device Axillary Crutches Orthotic/Prosthetic Devices or Brace: Yes Factors Limiting Gait Function Factors Limiting Gait Function Pain Comments Gait Comments touch down weight bearing PT-OP-J Posture/Palpation/Skin Start: 06/27/24 15:59 Freq: Status: Active Protocol: Document 06/28/24 09:46 [facility] (Rec: 06/28/24 16:52 [facility] [id number]) Palpation Assessment Location left ankle Palpation Location peronal tendon at lateral malleolus, posterior calf, bottom of michell Palpation Findings Edema,Soft Tissue Tightness, Tenderness PT-OP-K Range of Motion Start: 06/27/24 15:59 Freq: Status: Active Protocol: Document 06/28/24 09:46 [facility] (Rec: 06/28/24 16:52 [facility] [id number]) Ankle and Foot Goniometric Range of Motion Ankle and Foot ROM Limitations Comments see assessment part of note PT-OP-M Strength Start: 06/27/24 15:59 Freq: Status: Active Protocol: Document 06/28/24 09:46 [facility] (Rec: 06/28/24 16:52 [facility] [id number]) Ankle/Foot Strength Ankle and Foot Manual Muscle Testing Left Dorsiflexion (L4) 3- Fair- Plantarflexion (S1) 3+ Fair+ Inversion 3- Fair- Eversion (S1) 3- Fair- Right Dorsiflexion (L4) 5 Normal Plantarflexion (S1) 5 Normal Inversion 5 Normal Eversion (S1) 5 Normal PT-OP-Q Treatments Start: 06/27/24 15:59 Freq: Status: Active Protocol: Document 09/20/24 08:22 [facility] (Rec: 09/20/24 09:05 SP [id number]) Gym Equipment Shuttle Recovery Unilateral Heel Raises Details 09/13/24 Reps/Time not ready Unilateral Squats Details occ cues for knee alignment, little weakness shaky Resistance 25 R, 12 L Reps/Time 10 reps each LE Bilateral Squats Resistance 37# 1 navy band Shuttle Recovery Platform Stable Reps/Time x15 Therapeutic Exercises Standing Exercises sink stretch Standing Exercise Name viewed self LB stretch Reps/Minutes 30 SH, pelvic lateral tilt SLS slider Standing Exercise Name 10, 9, 7, 6 o'clock Side bilateral Equipment Used slider Reps/Minutes 1 min x 2 ea side Comments no brace- cued slow smaller range in 6 o'clock pnfree range resisted side stepping Standing Exercise Name Reviewed HEP: f/b/lateral Side bilateral Resistance TB 2>3 [facility] [place] [employer] at shins Equipment Used good, stable, hip abd tiring, no pain Reps/Minutes 10 ft x3 laps each direction Comments cued upper shld over pelvis little more fwd retro stepping calf raises Standing Exercise Name eccentric and concentric heel raises bottom step Side bilateral Resistance brace doffed L Equipment Used POPEYE pf/df, rail support Reps/Minutes x12 reps Comments cued raise lower painfree range, low reps for benefits effort not pain. ankle mobility Standing Exercise Name HEP Side left Resistance brace doffed Equipment Used foot on 16 box knee flexion/ DF Reps/Minutes 10 reps, rail support Comments cued pnfree range calf stretch Standing Exercise Name gastroc & soleus Side left Resistance brace doffed Equipment Used POPEYE, rail support Reps/Minutes 20 SH Comments cued upright posture, gentle range hernan- no pain gentle stretch Gait Training Gait Activity LRAD Device Used none no brace Level of Assistance S-Mod I Distance/Duration around clinic and front mirror f/b Treatment Focus heel toe mechanics, improve LLE WB hurry cane as needed Comments cued elongated posturing, TA soft stepping RLE slower heel toe. Manual Therapy Treatment Consent Patient gave verbal consent for manual Yes treatment Soft Tissue Mobilization left calf Body Location gastroc, soleus, achilles Mobilization Type Myofascial Release,Strumming Intensity/Depth Moderate Body Position Prone Comments STMs, MWM with DF peroneus long Body Location L post lateral malleoli Mobilization Type Cross-Friction Intensity/Depth Moderate Body Position Prone Comments STMs and MWM ankle eversion PT-OP-R Modalities Start: 06/27/24 15:59 Freq: Status: Active Protocol: Document 09/20/24 08:22 SP (Rec: 09/20/24 09:05 SP [id number]) Electric Stimulation Electric Stimulation left ankle, peroneus gordy Body Location L peroneal, soleus, gastroc Intensity 10 Target/Sweep Sweep Patient Position Prone Combined With Heat/Cold Cold Pack PT-OP-T Assessment and Plan Start: 06/27/24 15:59 Freq: Status: Active Protocol: Document 09/20/24 08:22 SP (Rec: 09/20/24 09:05 SP [id number]) Physical Therapy Assessment Goals Three Impairment muscle wasting left calf 2.7 cm smaller than right Care Home Goal (LTG) Normalize muscle tone left calf to within 1 cm of right for improved left LE function 09/04/24: right calf 3 cm larger, no progress LTG Duration 09/28/24 One Impairment lacking full ROM and strength left ankle Short Term Goal (STG) Patient will be instructed in HEP for purposes of left ankle ROM and strength 09/04/24: goal met, ongoing progression STG Duration goal met Foam Rubber Fabricator Goal (LTG) Patient will be independent and compliant with HEP and demonstrate full active ROM of her left ankle and 5/5 muscle strength to allow her to return to prior functional level. 09/04/24: strength 4/5 df and inv, 4-/5 pf and eversion LTG Duration 09/28/24 Two Impairment Patient requires the use of crutches for gait and cannot tolerate WBleft LE Short Term Goal (STG) Patient will be able to ambulate with crutches on level surfacewith normal gait pattern without increase in pain 08/28/24: GOAL MET: using SPC STG Duration 08/11/24 GOAL MET 08/28/24 Foam Rubber Fabricator Goal (LTG) Patient will be able to ambulate without assistive device on all usual surfaces without an increase in pain LTG Duration 09/28/24 Assessment Summary Assessment Pt tolerated ther ex today, pain only into L achilles ankle jt due to DF motion during SL sliders into 6 o' clock positioning, discussed range and clock phase directioning painfree. She improves gait no AD short distance throughout gym arrival. Provided IFC end tx to L calf/achilles and CP for muscle engagement and soreness recovery, good response. Physical Therapy Plan Frequency and Duration Frequency of Treatment 2x/Week Duration of treatment (weeks) 12 Plan of Care Start Date 06/28/24 Plan of Care End Date 09/28/23 Therapeutic Interventions Therapeutic Interventions Gait Training,Home Exercise Program,Manual Therapy, Neuromuscular Re-education, Patient/Caregiver Education, Self-Care/Home Management,Soft Tissue Mobilization,Taping, Therapeutic Activities, Therapeutic Exercises Modalities Cold Pack/Ice Massage,Electric Stimulation,Hot Packs, Infrared Therapy,Iontophoresis ,Ultrasound Next Visit Focus/Plan Next Note Type Progress Note Next Visit Plan Update POC next visit with PT 2/5. Continue to progress with strengthening, gait, balance.
--- NOTE | 2024-09-27 14:22 | PT.OTRE ---
Current Diagnoses Causalgia of left lower limb (09/27/24) Peroneal tendinitis, left leg (09/27/24) Difficulty in walking, not elsewhere classified (09/27/24) Past Medical History (Last Reviewed 04/27/24 @ 15:34 by HONG Paige) Anxiety Depression Insect bite of right toe Insomnia Open wound of toe of right foot due to animal bite PTSD (post-traumatic stress disorder) Surgical History (Last Reviewed 04/27/24 @ 15:34 by HONG Paige) Status post delivery Visit Care Team Role Provider Type HONG Paige Primary Care Provider Advanced Joggle Press Operator Specialty: Medical Address: [address] [place] [address], [id number] Email: [email or web address] Autumn Hackett PA-C Family Provider Non-Staff Specialty: Medical Address: [address] [place] [address], [address] Email: [email or web address] Golden Betancourt DPM Attending Provider Non-Staff Referring Provider Specialty: Podiatry Address: [facility], [address] [place] [address], [id number] Email: Physical Therapy Re-Evaluation PT-OP-A Visit Information Start: 06/27/24 15:59 Freq: Status: Active Protocol: Document 09/27/24 09:47 [facility]AK (Rec: 09/27/24 10:41 [facility]AK [id number]) Out-Patient Physical Therapy Visit Information Visit Information Visit Type Treatment Note Visit Start Time 09:47 Visit Stop Time 10:45 Visit Number 13 (01/01 approved visits 2024) Number of ANGLE SHEAR OPERATOR Visits 0 Evaluation Information Evaluation Date 06/28/24 Precautions Precautions 07/06/24: WBAT LLE, no restrictions. PT-OP-B Current Condition Start: 06/27/24 15:59 Freq: Status: Active Protocol: Document 09/13/24 15:14 SAK (Rec: 09/13/24 16:24 SAK [id number]) Current Condition History of Current Condition Onset Date February 24 2024 Current Complaints left ankle pain and weakness History of Current Condition States on 23 of February she did some chores, layed down for a nap, woke up with left ankle throbbing, discolored, swollen , bruise lateral ankle, has persisted. Doctor's initially thought Narinder's at walk in clinic, was sent to ER. x-ray negative, diagnosed with sprain, sent home. MRI showed mild to moderate tendinosis and intrasubstance partial thickness tear peroneus longus extending from level of lateral melleolus tip to distal insertion 1st metatarsal base. Was on Gabapentin for nerve pain due to symptoms of CRPS Currently no meds except Ambien. Also recent surgery for removal of labial cyst. Wearing lace up ankle brace, socks with comopression at arch. No history of sprain or other injury except left knee ligamentous tear thinks medial collarateral. Now doing leg lifts, leg circles, ankle dorsiflexion and pf, ankle circles hurt. Hasn't tried ice or heat. Hasn't seen zipper slide attacher for 1 1/2 months: PT ordered at that time but initially waited for call from PT clinic, so just starting now. NWB since 23 of February. Only approved previously for ankle df ex by zipper slide attacher. Inc pain with touch, pressure, weight bearing. Using axillary crutches. Water walking was recommended for patient but she is unable to afford. Prior Treatments and Tests no other, no ice or heat. right calf 32.9cm left 29.5 PT-OP-C Subjective Start: 06/27/24 15:59 Freq: Status: Active Protocol: Document 09/27/24 09:47 [facility] (Rec: 09/27/24 14:22 [facility] [id number]) OP-PT Subjective Patient Comments Patient Comments have been abandoning the cane more. Might be getting a free elliptical. Agreeable to try elliptical in PT today. Pain mostly end of day, plus had pain in R calf after leg press last session for a couple days. Had MRI left ankle 2 wks ago, was told achilles intact, peroneus longus healing, but whole foot looks lit up like a [place] tree with nerve activation. Not taking Gabapentin at this time. PT-OP-G Mobility & Gait Start: 06/27/24 15:59 Freq: Status: Active Protocol: Document 06/28/24 09:46 [facility] (Rec: 06/28/24 16:52 [facility] [id number]) OP Gait Assessment Gait Gait Assistance Required: Independent Able to Maintain Weight Bearing Status Yes During Gait Assistive Devices Assistive Device Axillary Crutches Orthotic/Prosthetic Devices or Brace: Yes Factors Limiting Gait Function Factors Limiting Gait Function Pain Comments Gait Comments touch down weight bearing PT-OP-J Posture/Palpation/Skin Start: 06/27/24 15:59 Freq: Status: Active Protocol: Document 06/28/24 09:46 [facility] (Rec: 06/28/24 16:52 [facility] [id number]) Palpation Assessment Location left ankle Palpation Location peronal tendon at lateral malleolus, posterior calf, bottom of michell Palpation Findings Edema,Soft Tissue Tightness, Tenderness PT-OP-K Range of Motion Start: 06/27/24 15:59 Freq: Status: Active Protocol: Document 06/28/24 09:46 [facility] (Rec: 06/28/24 16:52 [facility] [id number]) Ankle and Foot Goniometric Range of Motion Ankle and Foot ROM Limitations Comments see assessment part of note PT-OP-M Strength Start: 06/27/24 15:59 Freq: Status: Active Protocol: Document 06/28/24 09:46 [facility] (Rec: 06/28/24 16:52 [facility] [id number]) Ankle/Foot Strength Ankle and Foot Manual Muscle Testing Left Dorsiflexion (L4) 3- Fair- Plantarflexion (S1) 3+ Fair+ Inversion 3- Fair- Eversion (S1) 3- Fair- Right Dorsiflexion (L4) 5 Normal Plantarflexion (S1) 5 Normal Inversion 5 Normal Eversion (S1) 5 Normal PT-OP-Q Treatments Start: 06/27/24 15:59 Freq: Status: Active Protocol: Document 09/27/24 09:47 [facility] (Rec: 09/27/24 10:41 [facility] [id number]) Cardio Equipment Elliptical Duration (Minutes) 5 Resistance 1 Other able to keep heel down left foot, no brace Recumbent Bicycle Duration (Minutes) 5 Resistance 5 Seat Position 6 (no brace) Therapeutic Exercises Standing Exercises SLS slider Standing Exercise Name 10, 9, 7, 6 o'clock Side bilateral Equipment Used slider Reps/Minutes 1 min x 2 ea side Comments no brace- cued slow smaller range in 6 o'clock pnfree range calf raises Standing Exercise Name eccentric and concentric heel raises bottom step Side bilateral Resistance brace doffed L Equipment Used POPEYE pf/df, rail support Reps/Minutes x12 reps Comments cued raise lower painfree range, low reps for benefits effort not pain. calf stretch Standing Exercise Name gastroc & soleus Side left Resistance brace doffed Equipment Used POPEYE, rail support Reps/Minutes 20 SH Comments cued upright posture, gentle range hernan- no pain gentle stretch Gait Training Gait Activity LRAD Device Used none no brace Level of Assistance S-Mod I Distance/Duration around clinic and front mirror f/b Treatment Focus heel toe mechanics Comments cued elongated posturing, TA soft stepping RLE slower heel toe. Manual Therapy Treatment Consent Patient gave verbal consent for manual Yes treatment Soft Tissue Mobilization left calf Body Location gastroc, soleus, achilles Mobilization Type Myofascial Release,Strumming Intensity/Depth Moderate Body Position Prone Comments STMs, MWM with DF peroneus long Body Location L post lateral malleoli Mobilization Type Cross-Friction Intensity/Depth Moderate Body Position Prone Comments STMs and MWM ankle eversion Joint Mobilizations subtalar Reps/Duration 10x Comments closed chain MWM using L2 TB Manual Techniques MWM subtalar Comments L2 TB around ant subtalar with closed chain df Other Other Manual Treatments strength testing Neuro Re-Education Treatment Balance Activities BOSU Details bal, reciprocal unweighting Surface blue side Equipment 1 min, 10x Self-Care/Home Management Treatment Education Other Education advised patient to discuss restarting Gabapentin. PT-OP-R Modalities Start: 06/27/24 15:59 Freq: Status: Active Protocol: Document 09/27/24 09:47 [facility] (Rec: 09/27/24 14:22 [facility] [id number]) Electric Stimulation Electric Stimulation left ankle, peroneus gordy Body Location L peroneal, soleus, gastroc Intensity 10 Target/Sweep Sweep Patient Position Prone Combined With Heat/Cold Cold Pack PT-OP-T Assessment and Plan Start: 06/27/24 15:59 Freq: Status: Active Protocol: Document 09/27/24 09:47 [facility] (Rec: 09/27/24 10:41 [facility] [id number]) Physical Therapy Assessment Goals Three Impairment muscle wasting left calf 2.7 cm smaller than right Technical Manager Chemical Plant Goal (LTG) Normalize muscle tone left calf to within 1 cm of right for improved left LE function 09/04/24: right calf 3 cm larger, no progress 09/27/24: no progress despite improving strength LTG Duration 11/26/24 One Impairment lacking full ROM and strength left ankle Short Term Goal (STG) Patient will be instructed in HEP for purposes of left ankle ROM and strength 09/04/24: goal met, ongoing progression STG Duration goal met Technical Manager [employer] Goal (LTG) Patient will be independent and compliant with HEP and demonstrate full active ROM of her left ankle and 5/5 muscle strength to allow her to return to prior functional level. 09/04/24: strength 4/5 df and inv, 4-/5 pf and eversion 09/27/24: strength 4+/5 df and inv, 4/5 pf and eversion with pain with eversion. ROM WFL but with impingement at subtalar joint LTG Duration 11/26/24 Two Impairment Patient requires the use of crutches for gait and cannot tolerate WBleft LE Short Term Goal (STG) Patient will be able to ambulate with crutches on level surfacewith normal gait pattern without increase in pain 08/28/24: GOAL MET: using SPC STG Duration GOAL MET 08/28/24 Custodial Goal (LTG) Patient will be able to ambulate without assistive device on all usual surfaces without an increase in pain 09/27/24: using cane minimally, past 3 days not at all, good progress. LTG Duration 11/26/24 Progress Towards Goals Progress Towards Goals Progressing Toward Goals Assessment Summary Assessment Patient is making steady goal progress. Her ankle strength has improved, ROM has also improved but patient experiencing impingement subtalar joint; instructed in self mobilization with theraband today. Despite strength improvements her left calf remains 3 cm smaller than right. She has been progressing with her gait, continues to wear ankle brace but past 3 days hasn't used cane. In PT today demonstrating mildly antalgic gait with decreased step length and decreased push off left LE. She is compliant to her HEP which we continue to progress. She reports results of MRI a couple weeks ago show intact achilles, and healing peroneus longus but that her foot is lit up like a [place] tree due to nerve irritation. She requires further skilled PT to help her fully achieve the above goals and help her return to [facility]. Physical Therapy Plan Frequency and Duration Frequency of Treatment 1-2x/wk Duration of treatment (weeks) 8 Plan of Care Start Date 09/27/24 Plan of Care End Date 12/25/24 Therapeutic Interventions Therapeutic Interventions Gait Training,Home Exercise Program,Manual Therapy, Neuromuscular Re-education, Patient/Caregiver Education, Self-Care/Home Management,Soft Tissue Mobilization,Taping, Therapeutic Activities, Therapeutic Exercises Modalities Cold Pack/Ice Massage,Electric Stimulation,Hot Packs, Infrared Therapy,Iontophoresis ,Ultrasound Next Visit Focus/Plan Next Note Type Treatment Note Next Visit Plan Update POC next visit with PT 2/5. Continue to progress with strengthening, gait, balance, pain management with modalities and manual therapy PRN.
--- NOTE | 2024-09-27 14:22 | PT.OPPOC ---
Physical, Occupational & Speech Therapy At [facility] Current Diagnoses Causalgia of left lower limb (09/27/24) Peroneal tendinitis, left leg (09/27/24) Difficulty in walking, not elsewhere classified (09/27/24) Visit Care Team Role Provider Type HONG Paige Primary Care Provider Advanced Director Of Corporate Sales Specialty: Medical Address: [address] [place] [address], [id number] Email: [email or web address] Autumn Hackett PA-C Family Provider Non-Staff Specialty: Medical Address: [address] [place] [address], [address] Email: [email or web address] Golden Betancourt DPM Attending Provider Non-Staff Referring Provider Specialty: Podiatry Address: [facility], [facility] [place], [address] Email: Plan Of Care PT-OP-B Current Condition Start: 06/27/24 15:59 Freq: Status: Active Protocol: Document 09/13/24 15:14 [facility] (Rec: 09/13/24 16:24 [facility] [id number]) Current Condition History of Current Condition Onset Date February 24 2024 Current Complaints left ankle pain and weakness History of Current Condition States on 23 of February she did some chores, layed down for a nap, woke up with left ankle throbbing, discolored, swollen , bruise lateral ankle, has persisted. Doctor's initially thought Raynad's at walk in clinic, was sent to ER. x-ray negative, diagnosed with sprain, sent home. MRI showed mild to moderate tendinosis and intrasubstance partial thickness tear peroneus longus extending from level of lateral melleolus tip to distal insertion 1st metatarsal base. Was on Gabapentin for nerve pain due to symptoms of CRPS Currently no meds except Ambien. Also recent surgery for removal of labial cyst. Wearing lace up ankle brace, socks with comopression at arch. No history of sprain or other injury except left knee ligamentous tear thinks medial collarateral. Now doing leg lifts, leg circles, ankle dorsiflexion and pf, ankle circles hurt. Hasn't tried ice or heat. Hasn't seen cloud operations engineer for 1 1/2 months: PT ordered at that time but initially waited for call from PT clinic, so just starting now. NWB since 23 of February. Only approved previously for ankle df ex by cloud operations engineer. Inc pain with touch, pressure, weight bearing. Using axillary crutches. Water walking was recommended for patient but she is unable to afford. Prior Treatments and Tests no other, no ice or heat. right calf 32.9cm left 29.5 PT-OP-T Assessment and Plan Start: 06/27/24 15:59 Freq: Status: Active Protocol: Document 09/27/24 09:47 [facility] (Rec: 09/27/24 10:41 [facility] [id number]) Physical Therapy Assessment Goals Three Impairment muscle wasting left calf 2.7 cm smaller than right Prison Goal (LTG) Normalize muscle tone left calf to within 1 cm of right for improved left LE function 09/04/24: right calf 3 cm larger, no progress 09/27/24: no progress despite improving strength LTG Duration 11/26/24 One Impairment lacking full ROM and strength left ankle Short Term Goal (STG) Patient will be instructed in HEP for purposes of left ankle ROM and strength 09/04/24: goal met, ongoing progression STG Duration goal met Mechanic'S Assistant Goal (LTG) Patient will be independent and compliant with HEP and demonstrate full active ROM of her left ankle and 5/5 muscle strength to allow her to return to prior functional level. 09/04/24: strength 4/5 df and inv, 4-/5 pf and eversion 09/27/24: strength 4+/5 df and inv, 4/5 pf and eversion with pain with eversion. ROM WFL but with impingement at subtalar joint LTG Duration 11/26/24 Two Impairment Patient requires the use of crutches for gait and cannot tolerate WBleft LE Short Term Goal (STG) Patient will be able to ambulate with crutches on level surfacewith normal gait pattern without increase in pain 08/28/24: GOAL MET: using SPC STG Duration GOAL MET 08/28/24 Mechanic'S Assistant Goal (LTG) Patient will be able to ambulate without assistive device on all usual surfaces without an increase in pain 09/27/24: using cane minimally, past 3 days not at all, good progress. LTG Duration 11/26/24 Progress Towards Goals Progress Towards Goals Progressing Toward Goals Assessment Summary Assessment Patient is making steady goal progress. Her ankle strength has improved, ROM has also improved but patient experiencing impingement subtalar joint; instructed in self mobilization with theraband today. Despite strength improvements her left calf remains 3 cm smaller than right. She has been progressing with her gait, continues to wear ankle brace but past 3 days hasn't used cane. In PT today demonstrating mildly antalgic gait with decreased step length and decreased push off left LE. She is compliant to her HEP which we continue to progress. She reports results of MRI a couple weeks ago show intact achilles, and healing peroneus longus but that her foot is lit up like a [place] tree due to nerve irritation. She requires further skilled PT to help her fully achieve the above goals and help her return to [facility]. Physical Therapy Plan Frequency and Duration Frequency of Treatment 1-2x/wk Duration of treatment (weeks) 8 Plan of Care Start Date 09/27/24 Plan of Care End Date 12/25/24 Therapeutic Interventions Therapeutic Interventions Gait Training,Home Exercise Program,Manual Therapy, Neuromuscular Re-education, Patient/Caregiver Education, Self-Care/Home Management,Soft Tissue Mobilization,Taping, Therapeutic Activities, Therapeutic Exercises Modalities Cold Pack/Ice Massage,Electric Stimulation,Hot Packs, Infrared Therapy,Iontophoresis ,Ultrasound Next Visit Focus/Plan Next Note Type Treatment Note Next Visit Plan Update POC next visit with PT 2/5. Continue to progress with strengthening, gait, balance, pain management with modalities and manual therapy PRN. Plan of Care Dates Plan of Care Start Date 09/27/24 Plan of Care End Date 12/25/24 Electronically Signed by: Charu Stewart, PT 09/27/24 2914 If you are in agreement with this Plan of Care, please return a signed and dated copy. I have reviewed this Plan of Care and certify that the skilled therapy services above are required to meet the patient?s needs. Physician Signature Date Printed Name and Credentials Clinical Instructor Signature Printed Name and Credentials
--- NOTE | 2024-10-02 17:12 | PT.OTN ---
Current Diagnoses Causalgia of left lower limb (10/02/24) Peroneal tendinitis, left leg (10/02/24) Difficulty in walking, not elsewhere classified (10/02/24) Physical Therapy Treatment Note PT-OP-A Visit Information Start: 06/27/24 15:59 Freq: Status: Active Protocol: Document 10/02/24 08:13 [facility] (Rec: 10/02/24 09:01 SAK [id number]) Out-Patient Physical Therapy Visit Information Visit Information Visit Type Treatment Note Visit Start Time 08:15 Visit Stop Time 09:10 Visit Number 14 (02/01 approved visits 2024) Number of CURRICULUM DEVELOPMENT COORDINATOR Visits 0 Evaluation Information Evaluation Date 06/28/24 Precautions Precautions 07/06/24: WBAT LLE, no restrictions. PT-OP-B Current Condition Start: 06/27/24 15:59 Freq: Status: Active Protocol: Document 09/13/24 15:14 [facility] (Rec: 09/13/24 16:24 [facility] [id number]) Current Condition History of Current Condition Onset Date February 24 2024 Current Complaints left ankle pain and weakness History of Current Condition States on 23 of February she did some chores, layed down for a nap, woke up with left ankle throbbing, discolored, swollen , bruise lateral ankle, has persisted. Doctor's initially thought Raynad's at walk in clinic, was sent to ER. x-ray negative, diagnosed with sprain, sent home. MRI showed mild to moderate tendinosis and intrasubstance partial thickness tear peroneus longus extending from level of lateral melleolus tip to distal insertion 1st metatarsal base. Was on Gabapentin for nerve pain due to symptoms of CRPS Currently no meds except Ambien. Also recent surgery for removal of labial cyst. Wearing lace up ankle brace, socks with comopression at arch. No history of sprain or other injury except left knee ligamentous tear thinks medial collarateral. Now doing leg lifts, leg circles, ankle dorsiflexion and pf, ankle circles hurt. Hasn't tried ice or heat. Hasn't seen distribution dispatcher for 1 1/2 months: PT ordered at that time but initially waited for call from PT clinic, so just starting now. NWB since 23 of February. Only approved previously for ankle df ex by distribution dispatcher. Inc pain with touch, pressure, weight bearing. Using axillary crutches. Water walking was recommended for patient but she is unable to afford. Prior Treatments and Tests no other, no ice or heat. right calf 32.9cm left 29.5 PT-OP-C Subjective Start: 06/27/24 15:59 Freq: Status: Active Protocol: Document 10/02/24 08:13 [facility] (Rec: 10/02/24 09:01 [facility] [id number]) OP-PT Subjective Patient Comments Patient Comments Has a limp today due to calf soreness; did 6000 steps yesterday without cane. Sees silo man today. Not scheduled with distribution dispatcher for a few months, has difficult time getting in contact, wondering about return to work . PT-OP-G Mobility & Gait Start: 06/27/24 15:59 Freq: Status: Active Protocol: Document 06/28/24 09:46 [facility] (Rec: 06/28/24 16:52 [facility] [id number]) OP Gait Assessment Gait Gait Assistance Required: Independent Able to Maintain Weight Bearing Status Yes During Gait Assistive Devices Assistive Device Axillary Crutches Orthotic/Prosthetic Devices or Brace: Yes Factors Limiting Gait Function Factors Limiting Gait Function Pain Comments Gait Comments touch down weight bearing PT-OP-J Posture/Palpation/Skin Start: 06/27/24 15:59 Freq: Status: Active Protocol: Document 06/28/24 09:46 [facility] (Rec: 06/28/24 16:52 [facility] [id number]) Palpation Assessment Location left ankle Palpation Location peronal tendon at lateral malleolus, posterior calf, bottom of michell Palpation Findings Edema,Soft Tissue Tightness, Tenderness PT-OP-K Range of Motion Start: 06/27/24 15:59 Freq: Status: Active Protocol: Document 06/28/24 09:46 [facility] (Rec: 06/28/24 16:52 [facility] [id number]) Ankle and Foot Goniometric Range of Motion Ankle and Foot ROM Limitations Comments see assessment part of note PT-OP-M Strength Start: 06/27/24 15:59 Freq: Status: Active Protocol: Document 06/28/24 09:46 [facility] (Rec: 06/28/24 16:52 [facility] [id number]) Ankle/Foot Strength Ankle and Foot Manual Muscle Testing Left Dorsiflexion (L4) 3- Fair- Plantarflexion (S1) 3+ Fair+ Inversion 3- Fair- Eversion (S1) 3- Fair- Right Dorsiflexion (L4) 5 Normal Plantarflexion (S1) 5 Normal Inversion 5 Normal Eversion (S1) 5 Normal PT-OP-Q Treatments Start: 06/27/24 15:59 Freq: Status: Active Protocol: Document 10/02/24 08:13 [facility] (Rec: 10/02/24 09:01 [facility] [id number]) Cardio Equipment Elliptical Duration (Minutes) 5 Resistance 1 Other able to keep heel down left foot, ankle brace Recumbent Bicycle Duration (Minutes) 5 Resistance 5 Seat Position 4( brace) Gym Equipment Shuttle Recovery Unilateral Squats Details occ cues for knee alignment, little weakness shaky Resistance 25 R, 12 L Reps/Time 10 reps each LE Bilateral Squats Resistance 37# 1 navy band Shuttle Recovery Platform Stable Reps/Time x20 Shuttle Balance Red Details f/b/l Comments WBOS, NBOS, stagger : wt shift , HTs Lateral WBOS: wt shift, challenge HTs due to tiring shakiness- no pain, occasional dorsal L ankle tightness. Therapeutic Exercises Standing Exercises toe raises Standing Exercise Name eccentric lowering Reps/Minutes 10x2 SLS slider Standing Exercise Name 10, 9, 7, 6 o'clock Side bilateral Equipment Used slider Reps/Minutes 1 min x 2 ea side Comments no brace- cued slow smaller range in 6 o'clock pnfree range calf raises Standing Exercise Name eccentric and concentric heel raises bottom step Side bilateral Resistance brace doffed L Equipment Used POPEYE pf/df, rail support Reps/Minutes x12 reps Comments cued raise lower painfree range, low reps for benefits effort not pain. calf stretch Standing Exercise Name gastroc & soleus Side left Resistance brace doffed Equipment Used POPEYE, rail support Reps/Minutes 30 SH Comments cued upright posture, gentle range hernan- no pain gentle stretch Gait Training Gait Activity LRAD Device Used none no brace Level of Assistance vc Surface firm, mirror for visual feedback Distance/Duration 15' x 4 Treatment Focus heel toe mechanics Comments cued elongated posturing, TA soft stepping RLE slower heel toe. Manual Therapy Treatment Soft Tissue Mobilization left calf Body Location gastroc, soleus, achilles Mobilization Type Myofascial Release,Strumming Intensity/Depth Moderate Body Position Prone Comments STMs, MWM with DF peroneus long Body Location L post lateral malleoli Mobilization Type Cross-Friction Intensity/Depth Moderate Body Position Prone Comments STMs and MWM ankle eversion Joint Mobilizations subtalar Reps/Duration 10x Comments closed chain MWM using L2 TB Manual Techniques MWM subtalar Comments L2 TB around ant subtalar with closed chain df Neuro Re-Education Treatment Balance Activities BOSU Details bal, reciprocal unweighting, lunge Surface blue side Equipment 1 min, 10x PT-OP-R Modalities Start: 06/27/24 15:59 Freq: Status: Active Protocol: Document 10/02/24 08:13 [facility] (Rec: 10/02/24 09:01 [facility] [id number]) Electric Stimulation Electric Stimulation left ankle, peroneus gordy Body Location L peroneal, soleus, gastroc Intensity 10 Target/Sweep Sweep Patient Position Prone Combined With Heat/Cold Cold Pack PT-OP-T Assessment and Plan Start: 06/27/24 15:59 Freq: Status: Active Protocol: Document 10/02/24 08:13 [facility] (Rec: 10/02/24 09:01 [facility] [id number]) Physical Therapy Assessment Goals Three Impairment muscle wasting left calf 2.7 cm smaller than right Commercial [employer]one Software Developer Goal (LTG) Normalize muscle tone left calf to within 1 cm of right for improved left LE function 09/04/24: right calf 3 cm larger, no progress 09/27/24: no progress despite improving strength LTG Duration 11/26/24 One Impairment lacking full ROM and strength left ankle Short Term Goal (STG) Patient will be instructed in HEP for purposes of left ankle ROM and strength 09/04/24: goal met, ongoing progression STG Duration goal met Fdc Goal (LTG) Patient will be independent and compliant with HEP and demonstrate full active ROM of her left ankle and 5/5 muscle strength to allow her to return to prior functional level. 09/04/24: strength 4/5 df and inv, 4-/5 pf and eversion 09/27/24: strength 4+/5 df and inv, 4/5 pf and eversion with pain with eversion. ROM WFL but with impingement at subtalar joint LTG Duration 11/26/24 Two Impairment Patient requires the use of crutches for gait and cannot tolerate WBleft LE Short Term Goal (STG) Patient will be able to ambulate with crutches on level surfacewith normal gait pattern without increase in pain 08/28/24: GOAL MET: using SPC STG Duration GOAL MET 08/28/24 Commercial [employer]one Software Developer Goal (LTG) Patient will be able to ambulate without assistive device on all usual surfaces without an increase in pain 09/27/24: using cane minimally, past 3 days not at all, good progress. LTG Duration 11/26/24 Assessment Summary Assessment Muscle soreness in calf not pain to start session but mild limp today to start session. Improving activity tolerance, gait corrected with visual feedback. Patient hoping to do trial at work. Physical Therapy Plan Frequency and Duration Frequency of Treatment 1-2x/wk Duration of treatment (weeks) 8 Plan of Care Start Date 09/27/24 Plan of Care End Date 12/25/24 Therapeutic Interventions Therapeutic Interventions Gait Training,Home Exercise Program,Manual Therapy, Neuromuscular Re-education, Patient/Caregiver Education, Self-Care/Home Management,Soft Tissue Mobilization,Taping, Therapeutic Activities, Therapeutic Exercises Modalities Cold Pack/Ice Massage,Electric Stimulation,Hot Packs, Infrared Therapy,Iontophoresis ,Ultrasound Next Visit Focus/Plan Next Note Type Treatment Note Next Visit Plan Isolate phases of gait especially push off for mechanics and muscular control Continue to progress with strengthening, gait, balance, pain management with modalities and manual therapy PRN.
--- NOTE | 2024-10-11 09:48 | PT.OTN ---
Current Diagnoses Causalgia of left lower limb (10/11/24) Peroneal tendinitis, left leg (10/11/24) Difficulty in walking, not elsewhere classified (10/11/24) Physical Therapy Treatment Note PT-OP-A Visit Information Start: 06/27/24 15:59 Freq: Status: Active Protocol: Document 10/11/24 09:01 [facility] (Rec: 10/11/24 09:53 SP [id number]) Out-Patient Physical Therapy Visit Information Visit Information Visit Type Treatment Note Visit Start Time 09:01 Visit Stop Time 09:48 Visit Number 15 (03/03 approved visits 2024) Number of CLEANER AND POLISHER Visits 1 Evaluation Information Evaluation Date 06/28/24 Precautions Precautions 07/06/24: WBAT LLE, no restrictions. PT-OP-B Current Condition Start: 06/27/24 15:59 Freq: Status: Active Protocol: Document 09/13/24 15:14 [facility] (Rec: 09/13/24 16:24 [facility] [id number]) Current Condition History of Current Condition Onset Date February 24 2024 Current Complaints left ankle pain and weakness History of Current Condition States on 23 of February she did some chores, layed down for a nap, woke up with left ankle throbbing, discolored, swollen , bruise lateral ankle, has persisted. Doctor's initially thought Raynad's at walk in clinic, was sent to ER. x-ray negative, diagnosed with sprain, sent home. MRI showed mild to moderate tendinosis and intrasubstance partial thickness tear peroneus longus extending from level of lateral melleolus tip to distal insertion 1st metatarsal base. Was on Gabapentin for nerve pain due to symptoms of CRPS Currently no meds except Ambien. Also recent surgery for removal of labial cyst. Wearing lace up ankle brace, socks with comopression at arch. No history of sprain or other injury except left knee ligamentous tear thinks medial collarateral. Now doing leg lifts, leg circles, ankle dorsiflexion and pf, ankle circles hurt. Hasn't tried ice or heat. Hasn't seen admissions manager for 1 1/2 months: PT ordered at that time but initially waited for call from PT clinic, so just starting now. NWB since 23 of February. Only approved previously for ankle df ex by admissions manager. Inc pain with touch, pressure, weight bearing. Using axillary crutches. Water walking was recommended for patient but she is unable to afford. Prior Treatments and Tests no other, no ice or heat. right calf 32.9cm left 29.5 PT-OP-C Subjective Start: 06/27/24 15:59 Freq: Status: Active Protocol: Document 10/11/24 09:01 SP (Rec: 10/11/24 09:53 SP [id number]) OP-PT Subjective Patient Comments Patient Comments Pt reports doing good and worked 3.5 hr shift with 6,000 steps with just slight limp and low back little sore but feels big improvement. PT-OP-G Mobility & Gait Start: 06/27/24 15:59 Freq: Status: Active Protocol: Document 06/28/24 09:46 [facility] (Rec: 06/28/24 16:52 [facility] [id number]) OP Gait Assessment Gait Gait Assistance Required: Independent Able to Maintain Weight Bearing Status Yes During Gait Assistive Devices Assistive Device Axillary Crutches Orthotic/Prosthetic Devices or Brace: Yes Factors Limiting Gait Function Factors Limiting Gait Function Pain Comments Gait Comments touch down weight bearing PT-OP-J Posture/Palpation/Skin Start: 06/27/24 15:59 Freq: Status: Active Protocol: Document 06/28/24 09:46 [facility] (Rec: 06/28/24 16:52 [facility] [id number]) Palpation Assessment Location left ankle Palpation Location peronal tendon at lateral malleolus, posterior calf, bottom of michell Palpation Findings Edema,Soft Tissue Tightness, Tenderness PT-OP-K Range of Motion Start: 06/27/24 15:59 Freq: Status: Active Protocol: Document 06/28/24 09:46 [facility] (Rec: 06/28/24 16:52 [facility] [id number]) Ankle and Foot Goniometric Range of Motion Ankle and Foot ROM Limitations Comments see assessment part of note PT-OP-M Strength Start: 06/27/24 15:59 Freq: Status: Active Protocol: Document 06/28/24 09:46 [facility] (Rec: 06/28/24 16:52 [facility] [id number]) Ankle/Foot Strength Ankle and Foot Manual Muscle Testing Left Dorsiflexion (L4) 3- Fair- Plantarflexion (S1) 3+ Fair+ Inversion 3- Fair- Eversion (S1) 3- Fair- Right Dorsiflexion (L4) 5 Normal Plantarflexion (S1) 5 Normal Inversion 5 Normal Eversion (S1) 5 Normal PT-OP-Q Treatments Start: 06/27/24 15:59 Freq: Status: Active Protocol: Document 10/11/24 09:01 SP (Rec: 10/11/24 09:53 SP [id number]) Cardio Equipment Treadmill Duration (Minutes) 5 Speed 1.5>1.8 Incline 0>1> 1.5- good arm swing, took video with cues Other cues for equal dariela, L toe off, eccentric RLE heel strike -improvement Therapeutic Exercises Sitting Exercises HS curl Sitting Exercise Name added to HEP declined HO. Side bilateral Resistance TB #1 around ankles (towel under band back calf comfort support as needed) Reps/Minutes x15 Comments reports good HS tiring Standing Exercises lunges Standing Exercise Name added to HEP declined HO Side bilateral Reps/Minutes 5 reps x2 each side Comments cued IRIS, hip hinge, knees with/behind forefoot, HS curl Standing Exercise Name trialed in PT Comments causes L knee discomfort- stopped 10/11/24 SLS slider Standing Exercise Name 10, 9, 7, 6 o'clock Side bilateral Resistance added TB #1 around ankles 10/11 Equipment Used slider Reps/Minutes 1 min x 2 ea side Comments cued slow increased range in 6 o'clock pnfree range calf raises Standing Exercise Name eccentric and concentric heel raises bottom step Side bilateral Resistance brace doffed L Equipment Used off edge step as home carryover, PRN/light rail support Reps/Minutes x12 reps Comments cued raise lower painfree range, low reps for benefits effort not pain. Gait Training Gait Activity no AD Distance/Duration through clinic gym<>MAP bld stairs. Comments metronome 101-103 bpm, cued arm swing to normalize gait, no pain reported. stairs Description receiprocal stepping Distance/Duration 28 stairs Treatment Focus dariela and proper form asc/ desc UE support as needed Comments good pacing 89 bpm metronome ascend, descend little slower 80s but after 1 set 14 stairs anterior 1st MTP increase pain into extension. Manual Therapy Treatment Consent Patient gave verbal consent for manual Yes treatment Joint Mobilizations subtalar Joint L PA Grade II Body Position Sitting Reps/Duration 10x Comments sit on 2nd step L ankle Joint 1st MTP PA Body Position Sitting Reps/Duration sit on 2nd step Comments PA MTP 1-2, PIP, gentle toe ext PROM Neuro Re-Education Treatment Balance Activities SLS Comments L approx 30, 60 sec (unsteady 45 but self recovery use arms) R 60 sec hurdles Details receiprocal: fwd 80bpm, lateral 78 bpm Equipment 6 hurdles on 2 yoga mats Reps/Duration 3 laps each direction Comments cued soft stepping, even dariela stepping use metronome PT-OP-R Modalities Start: 06/27/24 15:59 Freq: Status: Active Protocol: Document 10/02/24 08:13 [facility] (Rec: 10/02/24 09:01 [facility] [id number]) Electric Stimulation Electric Stimulation left ankle, peroneus gordy Body Location L peroneal, soleus, gastroc Intensity 10 Target/Sweep Sweep Patient Position Prone Combined With Heat/Cold Cold Pack PT-OP-T Assessment and Plan Start: 06/27/24 15:59 Freq: Status: Active Protocol: Document 10/11/24 09:01 SP (Rec: 10/11/24 09:53 SP [id number]) Physical Therapy Assessment Goals Three Impairment muscle wasting left calf 2.7 cm smaller than right Retirement Goal (LTG) Normalize muscle tone left calf to within 1 cm of right for improved left LE function 09/04/24: right calf 3 cm larger, no progress 09/27/24: no progress despite improving strength LTG Duration 11/26/24 One Impairment lacking full ROM and strength left ankle Short Term Goal (STG) Patient will be instructed in HEP for purposes of left ankle ROM and strength 09/04/24: goal met, ongoing progression STG Duration goal met Transformation Consultant Goal (LTG) Patient will be independent and compliant with HEP and demonstrate full active ROM of her left ankle and 5/5 muscle strength to allow her to return to prior functional level. 09/04/24: strength 4/5 df and inv, 4-/5 pf and eversion 09/27/24: strength 4+/5 df and inv, 4/5 pf and eversion with pain with eversion. ROM WFL but with impingement at subtalar joint LTG Duration 11/26/24 Two Impairment Patient requires the use of crutches for gait and cannot tolerate WBleft LE Short Term Goal (STG) Patient will be able to ambulate with crutches on level surfacewith normal gait pattern without increase in pain 08/28/24: GOAL MET: using SPC STG Duration GOAL MET 08/28/24 Transformation Consultant Goal (LTG) Patient will be able to ambulate without assistive device on all usual surfaces without an increase in pain 09/27/24: using cane minimally, past 3 days not at all, good progress. LTG Duration 11/26/24 Assessment Summary Assessment Pt improved dariela with occasional little more elongated stride on R during TM walking then progression metronome uneven jasen stepping 80 bpm fwd and lateral. End tx progressed ankle and sub talar mobility, was able to added mini lunges with no pain in foot, declined HO. She demonstrates decreased L ankle/foot toe off but states more due to anterior 1st toe pain vs lack strength in calf. WIll continue to progress as hernan. Physical Therapy Plan Frequency and Duration Frequency of Treatment 1-2x/wk Duration of treatment (weeks) 8 Plan of Care Start Date 09/27/24 Plan of Care End Date 12/25/24 Therapeutic Interventions Therapeutic Interventions Gait Training,Home Exercise Program,Manual Therapy, Neuromuscular Re-education, Patient/Caregiver Education, Self-Care/Home Management,Soft Tissue Mobilization,Taping, Therapeutic Activities, Therapeutic Exercises Modalities Cold Pack/Ice Massage,Electric Stimulation,Hot Packs, Infrared Therapy,Iontophoresis ,Ultrasound Next Visit Focus/Plan Next Note Type Treatment Note Next Visit Plan Recheck mini lunges, metronome walking/hurdles/ stairs if toleranted. POC: Isolate phases of gait especially push off for mechanics and muscular control Continue to progress with strengthening, gait, balance, pain management with modalities and manual therapy PRN.
--- NOTE | 2024-10-18 12:59 | PT.OTRE ---
Current Diagnoses Causalgia of left lower limb (10/18/24) Peroneal tendinitis, left leg (10/18/24) Difficulty in walking, not elsewhere classified (10/18/24) Past Medical History (Last Reviewed 04/27/24 @ 15:34 by HONG Paige) Anxiety Depression Insect bite of right toe Insomnia Open wound of toe of right foot due to animal bite PTSD (post-traumatic stress disorder) Surgical History (Last Reviewed 04/27/24 @ 15:34 by HONG Paige) Status post delivery Visit Care Team Role Provider Type HONG Piage Primary Care Provider Advanced Channel Supervisor Specialty: Medical Address: [address] [place] [address], [address] Email: [email or web address] Autumn Hackett PA-C Family Provider Non-Staff Specialty: Medical Address: [address] [place] [address], [address] Email: [email or web address] [facility] Golden Betancourt DPM Attending Provider Non-Staff Referring Provider Specialty: Podiatry Address: [facility], [address] [place] [address], [id number] Email: Physical Therapy Re-Evaluation PT-OP-A Visit Information Start: 06/27/24 15:59 Freq: Status: Active Protocol: Document 10/18/24 09:03 SAK (Rec: 10/18/24 09:46 SAK [id number]) Out-Patient Physical Therapy Visit Information Visit Information Visit Type Treatment Note Visit Start Time 09:01 Visit Stop Time 09:45 Visit Number 16 (04/03 approved visits 2024) Number of TRANSPLANTER Visits 0 Evaluation Information Evaluation Date 06/28/24 Precautions Precautions 07/06/24: WBAT LLE, no restrictions. PT-OP-B Current Condition Start: 06/27/24 15:59 Freq: Status: Active Protocol: Document 09/13/24 15:14 SAK (Rec: 09/13/24 16:24 SAK [id number]) Current Condition History of Current Condition Onset Date February 24 2024 Current Complaints left ankle pain and weakness History of Current Condition States on 23 of February she did some chores, layed down for a nap, woke up with left ankle throbbing, discolored, swollen , bruise lateral ankle, has persisted. Doctor's initially thought Narinder's at walk in clinic, was sent to ER. x-ray negative, diagnosed with sprain, sent home. MRI showed mild to moderate tendinosis and intrasubstance partial thickness tear peroneus longus extending from level of lateral melleolus tip to distal insertion 1st metatarsal base. Was on Gabapentin for nerve pain due to symptoms of CRPS Currently no meds except Ambien. Also recent surgery for removal of labial cyst. Wearing lace up ankle brace, socks with comopression at arch. No history of sprain or other injury except left knee ligamentous tear thinks medial collarateral. Now doing leg lifts, leg circles, ankle dorsiflexion and pf, ankle circles hurt. Hasn't tried ice or heat. Hasn't seen water technician for 1 1/2 months: PT ordered at that time but initially waited for call from PT clinic, so just starting now. NWB since 23 of February. Only approved previously for ankle df ex by water technician. Inc pain with touch, pressure, weight bearing. Using axillary crutches. Water walking was recommended for patient but she is unable to afford. Prior Treatments and Tests no other, no ice or heat. right calf 32.9cm left 29.5 PT-OP-C Subjective Start: 06/27/24 15:59 Freq: Status: Active Protocol: Document 10/18/24 09:03 [facility] (Rec: 10/18/24 09:46 [facility] [id number]) OP-PT Subjective Patient Comments Patient Comments started driving clutch car, at first hurt the top of foot, now after 3 days doesn't have that pain. Worked 5.5 hr shift, 10,000 steps; whole body sore but no pain. Only pain now top of foot primarily with descending stairs. PT-OP-G Mobility & Gait Start: 06/27/24 15:59 Freq: Status: Active Protocol: Document 06/28/24 09:46 [facility] (Rec: 06/28/24 16:52 [facility] [id number]) OP Gait Assessment Gait Gait Assistance Required: Independent Able to Maintain Weight Bearing Status Yes During Gait Assistive Devices Assistive Device Axillary Crutches Orthotic/Prosthetic Devices or Brace: Yes Factors Limiting Gait Function Factors Limiting Gait Function Pain Comments Gait Comments touch down weight bearing PT-OP-J Posture/Palpation/Skin Start: 06/27/24 15:59 Freq: Status: Active Protocol: Document 06/28/24 09:46 [facility] (Rec: 06/28/24 16:52 [facility] [id number]) Palpation Assessment Location left ankle Palpation Location peronal tendon at lateral malleolus, posterior calf, bottom of michell Palpation Findings Edema,Soft Tissue Tightness, Tenderness PT-OP-K Range of Motion Start: 06/27/24 15:59 Freq: Status: Active Protocol: Document 06/28/24 09:46 [facility] (Rec: 06/28/24 16:52 [facility] [id number]) Ankle and Foot Goniometric Range of Motion Ankle and Foot ROM Limitations Comments see assessment part of note PT-OP-M Strength Start: 06/27/24 15:59 Freq: Status: Active Protocol: Document 06/28/24 09:46 [facility] (Rec: 06/28/24 16:52 [facility] [id number]) Ankle/Foot Strength Ankle and Foot Manual Muscle Testing Left Dorsiflexion (L4) 3- Fair- Plantarflexion (S1) 3+ Fair+ Inversion 3- Fair- Eversion (S1) 3- Fair- Right Dorsiflexion (L4) 5 Normal Plantarflexion (S1) 5 Normal Inversion 5 Normal Eversion (S1) 5 Normal PT-OP-Q Treatments Start: 06/27/24 15:59 Freq: Status: Active Protocol: Document 10/18/24 09:03 [facility] (Rec: 10/18/24 09:46 [facility] [id number]) Cardio Equipment Elliptical Duration (Minutes) 5 Resistance 4 Other able to keep heel down left foot, ankle brace Recumbent Bicycle Duration (Minutes) 5 Resistance 5 Seat Position 5(brace) Treadmill Duration (Minutes) 5 Speed 1.5>1.8 Incline 0>1> 1.5- good arm swing Other cues for equal dariela, L toe off, eccentric RLE heel strike -improvement Therapeutic Exercises Supine Exercises HC stretch Equipment Used strap Reps/Minutes 2x30 Comments after manual, improved ankle ROM Sitting Exercises HS curl Sitting Exercise Name verbal review Side bilateral Resistance TB #1 around ankles (towel under band back calf comfort support as needed) Reps/Minutes x15 Comments reports good HS tiring Standing Exercises SLS slider Standing Exercise Name 10, 9, 7, 6 o'clock Side bilateral Resistance added TB #1 around ankles 10/11 Equipment Used slider Reps/Minutes 1 min x 2 ea side Comments cued slow increased range in 6 o'clock pnfree range resisted side stepping Standing Exercise Name Reviewed HEP: f/b/lateral Side bilateral Resistance TB 2>3 [place] green at shins Equipment Used good, stable, hip abd tiring, no pain Reps/Minutes 10 ft x3 laps each direction Comments cued upper shld over pelvis little more fwd retro stepping calf raises Standing Exercise Name eccentric and concentric heel raises bottom step Side bilateral Resistance brace doffed L Reps/Minutes POPEYE Comments cued raise lower painfree range, low reps for benefits effort not pain. Gait Training Gait Activity no AD Distance/Duration through clinic gym<>MAP bld stairs. Comments metronome 101-103 bpm, cued arm swing to normalize gait, no pain reported. stairs Description receiprocal stepping Surface 4 stairs Distance/Duration 28 stairs Comments pain with descending(prior to manual). After manual 75% reduction pain descending 4 6 stairs in gym Manual Therapy Treatment Consent Patient gave verbal consent for manual Yes treatment Joint Mobilizations subtalar Joint L PA Grade III Body Position Supine Reps/Duration 10x L ankle Joint 1st MTP PA Body Position Sitting Reps/Duration sit on 2nd step Comments PA MTP 1-2, PIP, gentle toe ext PROM Other Other Manual Treatments MMT left ankle 4+/5 PT-OP-R Modalities Start: 06/27/24 15:59 Freq: Status: Active Protocol: Document 10/02/24 08:13 ERIN (Rec: 10/02/24 09:01 [facility] [id number]) Electric Stimulation Electric Stimulation left ankle, peroneus gordy Body Location L peroneal, soleus, gastroc Intensity 10 Target/Sweep Sweep Patient Position Prone Combined With Heat/Cold Cold Pack PT-OP-T Assessment and Plan Start: 06/27/24 15:59 Freq: Status: Active Protocol: Document 10/18/24 09:03 [facility]IN (Rec: 10/18/24 09:46 [facility] [id number]) Physical Therapy Assessment Goals Three Impairment muscle wasting left calf 2.7 cm smaller than right Long-Term Goal (LTG) Normalize muscle tone left calf to within 1 cm of right for improved left LE function 09/04/24: right calf 3 cm larger, no progress 09/27/24: no progress despite improving strength 10/17/24: left calf only 2cm smaller, improved LTG Duration 11/26/24 One Impairment lacking full ROM and strength left ankle Short Term Goal (STG) Patient will be instructed in HEP for purposes of left ankle ROM and strength 09/04/24: goal met, ongoing progression STG Duration goal met Card Tape Converter Operator Goal (LTG) Patient will be independent and compliant with HEP and demonstrate full active ROM of her left ankle and 5/5 muscle strength to allow her to return to prior functional level. 09/04/24: strength 4/5 df and inv, 4-/5 pf and eversion 09/27/24: strength 4+/5 df and inv, 4/5 pf and eversion with pain with eversion. ROM WFL but with impingement at subtalar joint 10/17/24: 4+/5 throughout but with continued impingement at subtalar joint LTG Duration 11/26/24 Two Impairment Patient requires the use of crutches for gait and cannot tolerate WBleft LE Short Term Goal (STG) Patient will be able to ambulate with crutches on level surfacewith normal gait pattern without increase in pain 08/28/24: GOAL MET: using SPC STG Duration GOAL MET 08/28/24 Long-Term Goal (LTG) Patient will be able to ambulate without assistive device on all usual surfaces without an increase in pain 09/27/24: using cane minimally, past 3 days not at all, good progress. 10/17/24: no use of cane anymore, only uses ankle brace during work. Has worked max 5.5 hr shift, denied increase in pain but sore all over due to not working for months. LTG Duration 11/26/24 Assessment Summary Assessment Patient stride improving, tolerance for work improving, only wearing brace to work. Descending stairs painful subtalar impingment, improved after manual treatment, would benefit from 3-4 further treatments to continue to work on subtalar mobility for improved gait on stairs as primary remaining goal. Physical Therapy Plan Frequency and Duration Frequency of Treatment 1-2x/wk Duration of treatment (weeks) 8 Plan of Care Start Date 09/27/24 Plan of Care End Date 12/25/24 Therapeutic Interventions Therapeutic Interventions Gait Training,Home Exercise Program,Manual Therapy, Neuromuscular Re-education, Patient/Caregiver Education, Self-Care/Home Management,Soft Tissue Mobilization,Taping, Therapeutic Activities, Therapeutic Exercises Modalities Cold Pack/Ice Massage,Electric Stimulation,Hot Packs, Infrared Therapy,Iontophoresis ,Ultrasound Next Visit Focus/Plan Next Note Type Treatment Note Next Visit Plan Emphasis on mechanics of gait level, uneven, and stairs, ankle mob prior to descending stairs. Continue strengthening.
--- NOTE | 2024-10-18 12:59 | PT.OPPOC ---
Physical, Occupational & Speech Therapy At [facility] Current Diagnoses Causalgia of left lower limb (10/18/24) Peroneal tendinitis, left leg (10/18/24) Difficulty in walking, not elsewhere classified (10/18/24) Visit Care Team Role Provider Type HONG Paige Primary Care Provider Advanced Catalogue Maker Specialty: Medical Address: [address] [place] [address], [address] Email: [email or web address] Autmun Hackett PA-C Family Provider Non-Staff Specialty: Medical Address: [address] [place] [address], [address] Email: [email or web address] Golden Betancourt DPM Attending Provider Non-Staff Referring Provider Specialty: Podiatry Address: [facility], [facility] [place], [address] Email: Plan Of Care PT-OP-B Current Condition Start: 06/27/24 15:59 Freq: Status: Active Protocol: Document 09/13/24 15:14 [facility] (Rec: 09/13/24 16:24 [facility] [id number]) Current Condition History of Current Condition Onset Date February 24 2024 Current Complaints left ankle pain and weakness History of Current Condition States on 23 of February she did some chores, layed down for a nap, woke up with left ankle throbbing, discolored, swollen , bruise lateral ankle, has persisted. Doctor's initially thought Raynad's at walk in clinic, was sent to ER. x-ray negative, diagnosed with sprain, sent home. MRI showed mild to moderate tendinosis and intrasubstance partial thickness tear peroneus longus extending from level of lateral melleolus tip to distal insertion 1st metatarsal base. Was on Gabapentin for nerve pain due to symptoms of CRPS Currently no meds except Ambien. Also recent surgery for removal of labial cyst. Wearing lace up ankle brace, socks with comopression at arch. No history of sprain or other injury except left knee ligamentous tear thinks medial collarateral. Now doing leg lifts, leg circles, ankle dorsiflexion and pf, ankle circles hurt. Hasn't tried ice or heat. Hasn't seen cytopathology technologist for 1 1/2 months: PT ordered at that time but initially waited for call from PT clinic, so just starting now. NWB since 23 of February. Only approved previously for ankle df ex by cytopathology technologist. Inc pain with touch, pressure, weight bearing. Using axillary crutches. Water walking was recommended for patient but she is unable to afford. Prior Treatments and Tests no other, no ice or heat. right calf 32.9cm left 29.5 PT-OP-T Assessment and Plan Start: 06/27/24 15:59 Freq: Status: Active Protocol: Document 10/18/24 09:03 [facility] (Rec: 10/18/24 09:46 [facility] [id number]) Physical Therapy Assessment Goals Three Impairment muscle wasting left calf 2.7 cm smaller than right Snf Goal (LTG) Normalize muscle tone left calf to within 1 cm of right for improved left LE function 09/04/24: right calf 3 cm larger, no progress 09/27/24: no progress despite improving strength 10/17/24: left calf only 2cm smaller, improved LTG Duration 11/26/24 One Impairment lacking full ROM and strength left ankle Short Term Goal (STG) Patient will be instructed in HEP for purposes of left ankle ROM and strength 09/04/24: goal met, ongoing progression STG Duration goal met Snf Goal (LTG) Patient will be independent and compliant with HEP and demonstrate full active ROM of her left ankle and 5/5 muscle strength to allow her to return to prior functional level. 09/04/24: strength 4/5 df and inv, 4-/5 pf and eversion 09/27/24: strength 4+/5 df and inv, 4/5 pf and eversion with pain with eversion. ROM WFL but with impingement at subtalar joint 10/17/24: 4+/5 throughout but with continued impingement at subtalar joint LTG Duration 11/26/24 Two Impairment Patient requires the use of crutches for gait and cannot tolerate WBleft LE Short Term Goal (STG) Patient will be able to ambulate with crutches on level surfacewith normal gait pattern without increase in pain 08/28/24: GOAL MET: using SPC STG Duration GOAL MET 08/28/24 Automatic Transmission Mechanic Goal (LTG) Patient will be able to ambulate without assistive device on all usual surfaces without an increase in pain 09/27/24: using cane minimally, past 3 days not at all, good progress. 10/17/24: no use of cane anymore, only uses ankle brace during work. Has worked max 5.5 hr shift, denied increase in pain but sore all over due to not working for months. LTG Duration 11/26/24 Assessment Summary Assessment Patient stride improving, tolerance for work improving, only wearing brace to work. Descending stairs painful subtalar impingment, improved after manual treatment, would benefit from 3-4 further treatments to continue to work on subtalar mobility for improved gait on stairs as primary remaining goal. Physical Therapy Plan Frequency and Duration Frequency of Treatment 1-2x/wk Duration of treatment (weeks) 8 Plan of Care Start Date 09/27/24 Plan of Care End Date 12/25/24 Therapeutic Interventions Therapeutic Interventions Gait Training,Home Exercise Program,Manual Therapy, Neuromuscular Re-education, Patient/Caregiver Education, Self-Care/Home Management,Soft Tissue Mobilization,Taping, Therapeutic Activities, Therapeutic Exercises Modalities Cold Pack/Ice Massage,Electric Stimulation,Hot Packs, Infrared Therapy,Iontophoresis ,Ultrasound Next Visit Focus/Plan Next Note Type Treatment Note Next Visit Plan Emphasis on mechanics of gait level, uneven, and stairs, ankle mob prior to descending stairs. Continue strengthening. Plan of Care Dates Plan of Care Start Date 09/27/24 Plan of Care End Date 12/25/24 Electronically Signed by: Charu Stewart, PT 10/18/24 [id number] If you are in agreement with this Plan of Care, please return a signed and dated copy. I have reviewed this Plan of Care and certify that the skilled therapy services above are required to meet the patient?s needs. Physician Signature Date Printed Name and Credentials Clinical Instructor Signature Printed Name and Credentials
--- NOTE | 2024-11-07 09:22 | PT-OP ANOTE ---
Pt did not show for today's appt, chart reviewed has attended 8/12 approved visits. LAWYER called and left message regarding missed appt, has 1 more scheduled visit with PT 11/15/24. LAWYER offered can call back and schedule another appt this week if wishes.
--- NOTE | 2024-11-09 09:45 | PT.OTN ---
Current Diagnoses Causalgia of left lower limb (11/09/24) Peroneal tendinitis, left leg (11/09/24) Difficulty in walking, not elsewhere classified (11/09/24) Physical Therapy Treatment Note PT-OP-A Visit Information Start: 06/27/24 15:59 Freq: Status: Active Protocol: Document 11/09/24 09:02 [facility] (Rec: 11/09/24 09:44 [facility] [id number]) Out-Patient Physical Therapy Visit Information Visit Information Visit Type Treatment Note Visit Start Time 09:01 Visit Stop Time 09:45 Visit Number 17 (05/04 approved visits 2024) Number of WINDOWS VMWARE ENGINEER Visits 0 Evaluation Information Evaluation Date 06/28/24 Precautions Precautions 07/06/24: WBAT LLE, no restrictions. PT-OP-B Current Condition Start: 06/27/24 15:59 Freq: Status: Active Protocol: Document 09/13/24 15:14 [facility] (Rec: 09/13/24 16:24 [facility] [id number]) Current Condition History of Current Condition Onset Date February 24 2024 Current Complaints left ankle pain and weakness History of Current Condition States on 23 of February she did some chores, layed down for a nap, woke up with left ankle throbbing, discolored, swollen , bruise lateral ankle, has persisted. Doctor's initially thought Raynad's at walk in clinic, was sent to ER. x-ray negative, diagnosed with sprain, sent home. MRI showed mild to moderate tendinosis and intrasubstance partial thickness tear peroneus longus extending from level of lateral melleolus tip to distal insertion 1st metatarsal base. Was on Gabapentin for nerve pain due to symptoms of CRPS Currently no meds except Ambien. Also recent surgery for removal of labial cyst. Wearing lace up ankle brace, socks with comopression at arch. No history of sprain or other injury except left knee ligamentous tear thinks medial collarateral. Now doing leg lifts, leg circles, ankle dorsiflexion and pf, ankle circles hurt. Hasn't tried ice or heat. Hasn't seen solutions sales consultant for 1 1/2 months: PT ordered at that time but initially waited for call from PT clinic, so just starting now. NWB since 23 of February. Only approved previously for ankle df ex by solutions sales consultant. Inc pain with touch, pressure, weight bearing. Using axillary crutches. Water walking was recommended for patient but she is unable to afford. Prior Treatments and Tests no other, no ice or heat. right calf 32.9cm left 29.5 PT-OP-C Subjective Start: 06/27/24 15:59 Freq: Status: Active Protocol: Document 11/09/24 09:02 [facility] (Rec: 11/09/24 09:44 [facility] [id number]) OP-PT Subjective Patient Comments Patient Comments Worked last weekend, tendon wasn't sore, but toes and top of foot hurt. Has been massaging, soaking, icing. Pain -01/30. 10,000 6000, 9000 , 10,000 steps at work. Despite all self treatment, no improvement in pain. Can't take anti-inflammatories. Still doing exercises, nothing was hurting until back to work, doing so many steps. Unable to push off with foot PT-OP-G Mobility & Gait Start: 06/27/24 15:59 Freq: Status: Active Protocol: Document 06/28/24 09:46 [facility] (Rec: 06/28/24 16:52 [facility] [id number]) OP Gait Assessment Gait Gait Assistance Required: Independent Able to Maintain Weight Bearing Status Yes During Gait Assistive Devices Assistive Device Axillary Crutches Orthotic/Prosthetic Devices or Brace: Yes Factors Limiting Gait Function Factors Limiting Gait Function Pain Comments Gait Comments touch down weight bearing PT-OP-J Posture/Palpation/Skin Start: 06/27/24 15:59 Freq: Status: Active Protocol: Document 06/28/24 09:46 [facility] (Rec: 06/28/24 16:52 [facility] [id number]) Palpation Assessment Location left ankle Palpation Location peronal tendon at lateral malleolus, posterior calf, bottom of michell Palpation Findings Edema,Soft Tissue Tightness, Tenderness PT-OP-K Range of Motion Start: 06/27/24 15:59 Freq: Status: Active Protocol: Document 06/28/24 09:46 [facility] (Rec: 06/28/24 16:52 [facility] [id number]) Ankle and Foot Goniometric Range of Motion Ankle and Foot ROM Limitations Comments see assessment part of note PT-OP-M Strength Start: 06/27/24 15:59 Freq: Status: Active Protocol: Document 06/28/24 09:46 [facility] (Rec: 06/28/24 16:52 [facility] [id number]) Ankle/Foot Strength Ankle and Foot Manual Muscle Testing Left Dorsiflexion (L4) 3- Fair- Plantarflexion (S1) 3+ Fair+ Inversion 3- Fair- Eversion (S1) 3- Fair- Right Dorsiflexion (L4) 5 Normal Plantarflexion (S1) 5 Normal Inversion 5 Normal Eversion (S1) 5 Normal PT-OP-Q Treatments Start: 06/27/24 15:59 Freq: Status: Active Protocol: Document 11/09/24 09:02 [facility] (Rec: 11/09/24 09:44 [facility] [id number]) Manual Therapy Treatment Soft Tissue Mobilization Left foot Mobilization Type Manual Lymphatic Drainage, Strumming Comments cues for deep breathing, lymph node massage, then gentle retrograde massage Taping 1 Body Location left foot Treatment Focus decrease edema and pain Type of Tape KT Skin Inspection intact Comments 2 fan strips crossed at anderw extending into toes with anchoring I strip at MTP's Self-Care/Home Management Treatment Education Patient Education Pain Management Other Education edema management: self MLD, ice, tape, trial compression sock (Juzo 20-30 mm Hg size II ) and order if helpful, decrease step count next couple days, try ice bucket. PT-OP-R Modalities Start: 06/27/24 15:59 Freq: Status: Active Protocol: Document 10/02/24 08:13 [facility] (Rec: 10/02/24 09:01 [facility] [id number]) Electric Stimulation Electric Stimulation left ankle, peroneus gordy Body Location L peroneal, soleus, gastroc Intensity 10 Target/Sweep Sweep Patient Position Prone Combined With Heat/Cold Cold Pack PT-OP-T Assessment and Plan Start: 06/27/24 15:59 Freq: Status: Active Protocol: Document 11/09/24 09:02 [facility] (Rec: 11/09/24 09:44 [facility] [id number]) Physical Therapy Assessment Goals Three Impairment muscle wasting left calf 2.7 cm smaller than right [employer] Goal (LTG) Normalize muscle tone left calf to within 1 cm of right for improved left LE function 09/04/24: right calf 3 cm larger, no progress 09/27/24: no progress despite improving strength 10/17/24: left calf only 2cm smaller, improved LTG Duration 11/26/24 One Impairment lacking full ROM and strength left ankle Short Term Goal (STG) Patient will be instructed in HEP for purposes of left ankle ROM and strength 09/04/24: goal met, ongoing progression STG Duration goal met Care Home Goal (LTG) Patient will be independent and compliant with HEP and demonstrate full active ROM of her left ankle and 5/5 muscle strength to allow her to return to prior functional level. 09/04/24: strength 4/5 df and inv, 4-/5 pf and eversion 09/27/24: strength 4+/5 df and inv, 4/5 pf and eversion with pain with eversion. ROM WFL but with impingement at subtalar joint 10/17/24: 4+/5 throughout but with continued impingement at subtalar joint LTG Duration 11/26/24 Two Impairment Patient requires the use of crutches for gait and cannot tolerate WBleft LE Short Term Goal (STG) Patient will be able to ambulate with crutches on level surfacewith normal gait pattern without increase in pain 08/28/24: GOAL MET: using SPC STG Duration GOAL MET 08/28/24 Care Home Goal (LTG) Patient will be able to ambulate without assistive device on all usual surfaces without an increase in pain 09/27/24: using cane minimally, past 3 days not at all, good progress. 10/17/24: no use of cane anymore, only uses ankle brace during work. Has worked max 5.5 hr shift, denied increase in pain but sore all over due to not working for months. LTG Duration 11/26/24 Physical Therapy Plan Frequency and Duration Frequency of Treatment 1-2x/wk Duration of treatment (weeks) 8 Plan of Care Start Date 09/27/24 Plan of Care End Date 12/25/24 Therapeutic Interventions Therapeutic Interventions Gait Training,Home Exercise Program,Manual Therapy, Neuromuscular Re-education, Patient/Caregiver Education, Self-Care/Home Management,Soft Tissue Mobilization,Taping, Therapeutic Activities, Therapeutic Exercises Modalities Cold Pack/Ice Massage,Electric Stimulation,Hot Packs, Infrared Therapy,Iontophoresis ,Ultrasound Next Visit Focus/Plan Next Note Type Treatment Note Next Visit Plan Evaluate response to today's treatment, KT tape, MLD, compression. Further ankle joint mobs as indicated. Upgrade HEP as indicated. Anticipate discharge after next visit;
--- NOTE | 2024-11-15 13:46 | PT.OTN ---
Current Diagnoses Causalgia of left lower limb (11/15/24) Peroneal tendinitis, left leg (11/15/24) Difficulty in walking, not elsewhere classified (11/15/24) Physical Therapy Treatment Note PT-OP-A Visit Information Start: 06/27/24 15:59 Freq: Status: Active Protocol: Document 11/15/24 13:00 [facility] (Rec: 11/15/24 13:46 [facility] [id number]) Out-Patient Physical Therapy Visit Information Visit Information Visit Type Treatment Note Visit Start Time 13:01 Visit Stop Time 13:44 Visit Number 18 (06/03 approved visits 2024 ) Number of CORRECTIONAL MAINTENANCE TECHNICIAN Visits 0 Evaluation Information Evaluation Date 06/28/24 Precautions Precautions 07/06/24: WBAT LLE, no restrictions. PT-OP-B Current Condition Start: 06/27/24 15:59 Freq: Status: Active Protocol: Document 09/13/24 15:14 [facility] (Rec: 09/13/24 16:24 [facility] [id number]) Current Condition History of Current Condition Onset Date February 24 2024 Current Complaints left ankle pain and weakness History of Current Condition States on 23 of February she did some chores, layed down for a nap, woke up with left ankle throbbing, discolored, swollen , bruise lateral ankle, has persisted. Doctor's initially thought Raynad's at walk in clinic, was sent to ER. x-ray negative, diagnosed with sprain, sent home. MRI showed mild to moderate tendinosis and intrasubstance partial thickness tear peroneus longus extending from level of lateral melleolus tip to distal insertion 1st metatarsal base. Was on Gabapentin for nerve pain due to symptoms of CRPS Currently no meds except Ambien. Also recent surgery for removal of labial cyst. Wearing lace up ankle brace, socks with comopression at arch. No history of sprain or other injury except left knee ligamentous tear thinks medial collarateral. Now doing leg lifts, leg circles, ankle dorsiflexion and pf, ankle circles hurt. Hasn't tried ice or heat. Hasn't seen e d tech for 1 1/2 months: PT ordered at that time but initially waited for call from PT clinic, so just starting now. NWB since 23 of February. Only approved previously for ankle df ex by e d tech. Inc pain with touch, pressure, weight bearing. Using axillary crutches. Water walking was recommended for patient but she is unable to afford. Prior Treatments and Tests no other, no ice or heat. right calf 32.9cm left 29.5 PT-OP-C Subjective Start: 06/27/24 15:59 Freq: Status: Active Protocol: Document 11/15/24 13:00 [facility] (Rec: 11/15/24 13:46 [facility] [id number]) OP-PT Subjective Patient Comments Patient Comments Tape was ok, compression stocking ok, not sure if either helped with swelling, is less swollen but only worked one day. Left knee hurting today. Tried ice bucket, hated it, but did it per recommendation. Sees e d tech tomorrow. Calf getting bigger. PT-OP-G Mobility & Gait Start: 06/27/24 15:59 Freq: Status: Active Protocol: Document 06/28/24 09:46 [facility] (Rec: 06/28/24 16:52 [facility] [id number]) OP Gait Assessment Gait Gait Assistance Required: Independent Able to Maintain Weight Bearing Status Yes During Gait Assistive Devices Assistive Device Axillary Crutches Orthotic/Prosthetic Devices or Brace: Yes Factors Limiting Gait Function Factors Limiting Gait Function Pain Comments Gait Comments touch down weight bearing PT-OP-J Posture/Palpation/Skin Start: 06/27/24 15:59 Freq: Status: Active Protocol: Document 06/28/24 09:46 [facility] (Rec: 06/28/24 16:52 [facility] [id number]) Palpation Assessment Location left ankle Palpation Location peronal tendon at lateral malleolus, posterior calf, bottom of michell Palpation Findings Edema,Soft Tissue Tightness, Tenderness PT-OP-K Range of Motion Start: 06/27/24 15:59 Freq: Status: Active Protocol: Document 06/28/24 09:46 [facility] (Rec: 06/28/24 16:52 [facility] [id number]) Ankle and Foot Goniometric Range of Motion Ankle and Foot ROM Limitations Comments see assessment part of note PT-OP-M Strength Start: 06/27/24 15:59 Freq: Status: Active Protocol: Document 06/28/24 09:46 [facility] (Rec: 06/28/24 16:52 [facility] [id number]) Ankle/Foot Strength Ankle and Foot Manual Muscle Testing Left Dorsiflexion (L4) 3- Fair- Plantarflexion (S1) 3+ Fair+ Inversion 3- Fair- Eversion (S1) 3- Fair- Right Dorsiflexion (L4) 5 Normal Plantarflexion (S1) 5 Normal Inversion 5 Normal Eversion (S1) 5 Normal PT-OP-Q Treatments Start: 06/27/24 15:59 Freq: Status: Active Protocol: Document 11/15/24 13:00 [facility] (Rec: 11/15/24 13:46 [facility] [id number]) Cardio Equipment Elliptical Duration (Minutes) 5 Resistance 4 Other able to keep heel down left foot, ankle brace Therapeutic Exercises Supine Exercises HC stretch Equipment Used strap Reps/Minutes 2x30 Comments after manual, improved ankle ROM Sitting Exercises ankle ev Equipment Used L2 TB Reps/Minutes 10x ankle inv Resistance L2 TB Reps/Minutes 10x ankle df Resistance L2 TB Reps/Minutes 10x Standing Exercises SLS slider Standing Exercise Name 10, 9, 7, 6 o'clock Side bilateral Resistance added TB #1 around ankles 10/11 Equipment Used slider Reps/Minutes 1 min x 2 ea side Comments cued slow increased range in 6 o'clock pnfree range resisted side stepping Standing Exercise Name Reviewed HEP: f/b/lateral Side bilateral Resistance TB 2>3 [place] [employer] [place] at shins Equipment Used good, stable, hip abd tiring, no pain Reps/Minutes 10 ft x3 laps each direction Comments cued upper shld over pelvis little more fwd retro stepping calf raises Standing Exercise Name eccentric and concentric heel raises bottom step Side bilateral Resistance brace doffed L Reps/Minutes POPEYE Comments cued raise lower painfree range, low reps for benefits effort not pain. Manual Therapy Treatment Joint Mobilizations subtalar Joint L PA Grade III Body Position Supine Reps/Duration 10x L ankle Joint 1st MTP PA Body Position Sitting Reps/Duration sit on 2nd step Comments PA MTP 1-2, PIP, gentle toe ext PROM Neuro Re-Education Treatment Balance Activities SLS Equipment black TB pod Self-Care/Home Management Treatment Education Patient Education Pain Management Other Education review self mob left subtalar with TB PT-OP-R Modalities Start: 06/27/24 15:59 Freq: Status: Active Protocol: Document 10/02/24 08:13 [facility] (Rec: 10/02/24 09:01 [facility] [id number]) Electric Stimulation Electric Stimulation left ankle, peroneus gordy Body Location L peroneal, soleus, gastroc Intensity 10 Target/Sweep Sweep Patient Position Prone Combined With Heat/Cold Cold Pack PT-OP-T Assessment and Plan Start: 06/27/24 15:59 Freq: Status: Active Protocol: Document 11/15/24 13:00 [facility] (Rec: 11/15/24 13:46 [facility] [id number]) Physical Therapy Assessment Goals Three Impairment muscle wasting left calf 2.7 cm smaller than right Alf Goal (LTG) Normalize muscle tone left calf to within 1 cm of right for improved left LE function 09/04/24: right calf 3 cm larger, no progress 09/27/24: no progress despite improving strength 10/17/24: left calf only 2cm smaller, improved LTG Duration 11/26/24 One Impairment lacking full ROM and strength left ankle Short Term Goal (STG) Patient will be instructed in HEP for purposes of left ankle ROM and strength 09/04/24: goal met, ongoing progression STG Duration goal met Equity Holder Goal (LTG) Patient will be independent and compliant with HEP and demonstrate full active ROM of her left ankle and 5/5 muscle strength to allow her to return to prior functional level. 09/04/24: strength 4/5 df and inv, 4-/5 pf and eversion 09/27/24: strength 4+/5 df and inv, 4/5 pf and eversion with pain with eversion. ROM WFL but with impingement at subtalar joint 10/17/24: 4+/5 throughout but with continued impingement at subtalar joint LTG Duration 11/26/24 Two Impairment Patient requires the use of crutches for gait and cannot tolerate WBleft LE Short Term Goal (STG) Patient will be able to ambulate with crutches on level surfacewith normal gait pattern without increase in pain 08/28/24: GOAL MET: using SPC STG Duration GOAL MET 08/28/24 Alf Goal (LTG) Patient will be able to ambulate without assistive device on all usual surfaces without an increase in pain 09/27/24: using cane minimally, past 3 days not at all, good progress. 10/17/24: no use of cane anymore, only uses ankle brace during work. Has worked max 5.5 hr shift, denied increase in pain but sore all over due to not working for months. 11/15/24: LTG Duration 11/26/24 Progress Towards Goals Progress Towards Goals Goals Met Assessment Summary Assessment PT goals mostly met, patient ready for discharge to independent [facility], self management. Demonstrates good understanding. To see e d tech for last visit tomorrow. No further PT needs .
--- NOTE | 2024-11-15 13:46 | PT.OPDS ---
Current Diagnoses Causalgia of left lower limb (11/15/24) Peroneal tendinitis, left leg (11/15/24) Difficulty in walking, not elsewhere classified (11/15/24) Visit Care Team Role Provider Type HONG Paige Primary Care Provider Advanced Lead Network Engineer Specialty: Medical Address: [address] [place] [address], [id number] Email: [email or web address] Hackett PA-C Family Provider Non-Staff Specialty: Medical Address: [address] [place] [address], [id number] Email: [email or web address] Golden Betancourt DPM Attending Provider Non-Staff Referring Provider Specialty: Podiatry Address: [facility], [address] [place] [address], [id number] Email: Visit Number Visit Number [phone] (06/03 approved visits 2024) Discharge Summary PT-OP-B Current Condition Start: 06/27/24 15:59 Freq: Status: Active Protocol: Document 09/13/24 15:14 [facility] (Rec: 09/13/24 16:24 [facility] [id number]) Current Condition History of Current Condition Onset Date February 24 2024 Current Complaints left ankle pain and weakness History of Current Condition States on 23 of February she did some chores, layed down for a nap, woke up with left ankle throbbing, discolored, swollen , bruise lateral ankle, has persisted. Doctor's initially thought Raynad's at walk in clinic, was sent to ER. x-ray negative, diagnosed with sprain, sent home. MRI showed mild to moderate tendinosis and intrasubstance partial thickness tear peroneus longus extending from level of lateral melleolus tip to distal insertion 1st metatarsal base. Was on Gabapentin for nerve pain due to symptoms of CRPS Currently no meds except Ambien. Also recent surgery for removal of labial cyst. Wearing lace up ankle brace, socks with comopression at arch. No history of sprain or other injury except left knee ligamentous tear thinks medial collarateral. Now doing leg lifts, leg circles, ankle dorsiflexion and pf, ankle circles hurt. Hasn't tried ice or heat. Hasn't seen nylon machine operator for 1 1/2 months: PT ordered at that time but initially waited for call from PT clinic, so just starting now. NWB since 23 of February. Only approved previously for ankle df ex by nylon machine operator. Inc pain with touch, pressure, weight bearing. Using axillary crutches. Water walking was recommended for patient but she is unable to afford. Prior Treatments and Tests no other, no ice or heat. right calf 32.9cm left 29.5 PT-OP-C Subjective Start: 06/27/24 15:59 Freq: Status: Active Protocol: Document 11/15/24 13:00 [facility] (Rec: 11/15/24 13:46 [facility] [id number]) OP-PT Subjective Patient Comments Patient Comments Tape was ok, compression stocking ok, not sure if either helped with swelling, is less swollen but only worked one day. Left knee hurting today. Tried ice bucket, hated it, but did it per recommendation. Sees nylon machine operator tomorrow. Calf getting bigger. PT-OP-G Mobility & Gait Start: 06/27/24 15:59 Freq: Status: Active Protocol: Document 06/28/24 09:46 [facility] (Rec: 06/28/24 16:52 [facility] [id number]) OP Gait Assessment Gait Gait Assistance Required: Independent Able to Maintain Weight Bearing Status Yes During Gait Assistive Devices Assistive Device Axillary Crutches Orthotic/Prosthetic Devices or Brace: Yes Factors Limiting Gait Function Factors Limiting Gait Function Pain Comments Gait Comments touch down weight bearing PT-OP-J Posture/Palpation/Skin Start: 06/27/24 15:59 Freq: Status: Active Protocol: Document 06/28/24 09:46 [facility] (Rec: 06/28/24 16:52 [facility] [id number]) Palpation Assessment Location left ankle Palpation Location peronal tendon at lateral malleolus, posterior calf, bottom of michell Palpation Findings Edema,Soft Tissue Tightness, Tenderness PT-OP-K Range of Motion Start: 06/27/24 15:59 Freq: Status: Active Protocol: Document 06/28/24 09:46 [facility] (Rec: 06/28/24 16:52 [facility] [id number]) Ankle and Foot Goniometric Range of Motion Ankle and Foot ROM Limitations Comments see assessment part of note PT-OP-M Strength Start: 06/27/24 15:59 Freq: Status: Active Protocol: Document 06/28/24 09:46 [facility] (Rec: 06/28/24 16:52 [facility] [id number]) Ankle/Foot Strength Ankle and Foot Manual Muscle Testing Left Dorsiflexion (L4) 3- Fair- Plantarflexion (S1) 3+ Fair+ Inversion 3- Fair- Eversion (S1) 3- Fair- Right Dorsiflexion (L4) 5 Normal Plantarflexion (S1) 5 Normal Inversion 5 Normal Eversion (S1) 5 Normal PT-OP-T Assessment and Plan Start: 06/27/24 15:59 Freq: Status: Active Protocol: Document 11/15/24 13:00 [facility] (Rec: 11/15/24 13:46 [facility] [id number]) Physical Therapy Assessment Goals Three Impairment muscle wasting left calf 2.7 cm smaller than right Cargo Trimmer Goal (LTG) Normalize muscle tone left calf to within 1 cm of right for improved left LE function 09/04/24: right calf 3 cm larger, no progress 09/27/24: no progress despite improving strength 10/17/24: left calf only 2cm smaller, improved LTG Duration 11/26/24 One Impairment lacking full ROM and strength left ankle Short Term Goal (STG) Patient will be instructed in HEP for purposes of left ankle ROM and strength 09/04/24: goal met, ongoing progression STG Duration goal met Skilled Nursing Goal (LTG) Patient will be independent and compliant with HEP and demonstrate full active ROM of her left ankle and 5/5 muscle strength to allow her to return to prior functional level. 09/04/24: strength 4/5 df and inv, 4-/5 pf and eversion 09/27/24: strength 4+/5 df and inv, 4/5 pf and eversion with pain with eversion. ROM WFL but with impingement at subtalar joint 10/17/24: 4+/5 throughout but with continued impingement at subtalar joint LTG Duration 11/26/24 Two Impairment Patient requires the use of crutches for gait and cannot tolerate WBleft LE Short Term Goal (STG) Patient will be able to ambulate with crutches on level surfacewith normal gait pattern without increase in pain 08/28/24: GOAL MET: using SPC STG Duration GOAL MET 08/28/24 Cargo Trimmer Goal (LTG) Patient will be able to ambulate without assistive device on all usual surfaces without an increase in pain 09/27/24: using cane minimally, past 3 days not at all, good progress. 10/17/24: no use of cane anymore, only uses ankle brace during work. Has worked max 5.5 hr shift, denied increase in pain but sore all over due to not working for months. 11/15/24: LTG Duration 11/26/24 Progress Towards Goals Progress Towards Goals Goals Met Assessment Summary Assessment PT goals mostly met, patient ready for discharge to independent [facility], self management. Demonstrates good understanding. To see nylon machine operator for last visit tomorrow. No further PT needs .
== END 2024-11-23 09:43 | disposition home or self-care (01) ==
LOC: PHYS 13:00
PROVIDERS: Family Provider Physician Assistant; PCP Registered Nurse Diabetes Educator; Referring Provider Podiatrist; Visit Provider Podiatrist
DX: M76.72 Peroneal tendinitis, left leg (principal); G57.72 Causalgia of left lower limb; R26.2 Difficulty in walking, not elsewhere classified
CPT/HCPCS: 97014; 97110; 97112; 97116; 97140; 97163; 97535; G0283